=== PATIENT | male | born 1955 | race African-American/Black ===

== ENCOUNTER 2017-05-19 12:17 | Inpatient (IN) ==
[2017-05-19 13:46] LABS: Basophils # 0.1 10*3/uL (0.0-0.2); Eosinophils # 0.1 10*3/uL (0.0-0.87); Eosinophils % 2.2 % (0.00-10.9); Hematocrit 38.7 VOL% (42.0-52.0); Hemoglobin 12.9 GM/DL (14.0-18.0); Immature Granulocytes % 1.2 %; Immature Granulocytes Absolute 0.06 #; Lymphocytes # 1.2 10*3/uL (1.4-4.0); Lymphocytes % 24.8 % (21.2-54.2); Mean Corpuscular HGB Conc 33.3 GM/DL (32-36); Mean Corpuscular Hemoglobin 30 PG (27-34); Mean Corpuscular Volume 90.8 FL (87-102); Mean Platelet Volume 13.2 FL (9.6-12.0); Monocytes # 0.7 10*3/uL (0.11-0.8); Monocytes % 14.8 % (1.7-12.7); Neutrophils # 2.8 10*3/uL (1.4-7.4); Platelet Count 201 T/CUMM (130-400); Red Blood Count 4.26 MC/CUMM (3.8-5.5); Red Cell Distribution Width 15.7 % (9.3-17.3)
[2017-05-19 14:03] LABS: PT Patient Result 10.7 SECS
[2017-05-19 14:17] LABS: Alanine Aminotransferase 31 U/L (16-61); Albumin 3.7 G/DL (3.4-5.0); Alkaline Phosphatase 62 U/L (45-117); Aspartate Amino Transferase 33 U/L (0-37); Bilirubin,Total < 0.39 MG/DL (0.2-1.0); Blood Urea Nitrogen 10 MG/DL (7-18); Calcium 8.5 MG/DL (8.5-10.1); Glucose 123 MG/DL (74-106); Potassium 3.7 MMOL/L (3.5-5.1); Sodium 136 MMOL/L (136-145); Total Protein 7.8 G/DL (6.4-8.3)
[2017-05-19 14:19] LABS: Troponin I Only 0.052 NG/ML (0.00-0.045)
[2017-05-19] MEDS ORDERED: ONDANSETRON 4 MG/2 ML VIAL IV PRN (17:41)
[2017-05-19] MEDS: SODIUM CHLORIDE 0.9% 1,000 ML IV SCH (19:06)
[2017-05-19] MEDS: DOCUSATE SODIUM 100 MG CAPSULE PO SCH (21:20)
[2017-05-19] MEDS: ACETAMINOPHEN 325 MG TABLET PO PRN (21:20)
[2017-05-19] MEDS: ENOXAPARIN 40 MG/0.4 ML SYRINGE SUBCUT SCH (21:24)
[2017-05-20] MEDS ORDERED: ALBUTEROL 2.5 MG/3 ML NEB RESP TX PRN (00:38)
[2017-05-20] MEDS: SODIUM CHLORIDE 0.9% 1,000 ML IV SCH ×2 (03:06→11:42)
[2017-05-20 03:33] LABS: Basophils # 0.1 10*3/uL (0.0-0.2); Eosinophils # 0.1 10*3/uL (0.0-0.87); Eosinophils % 2.1 % (0.00-10.9); Hematocrit 37.5 VOL% (42.0-52.0); Hemoglobin 12.6 GM/DL (14.0-18.0); Immature Granulocytes Absolute 0.05 #; Lymphocytes # 1.3 10*3/uL (1.4-4.0); Lymphocytes % 25.6 % (21.2-54.2); Mean Corpuscular HGB Conc 33.6 GM/DL (32-36); Mean Corpuscular Hemoglobin 30 PG (27-34); Mean Corpuscular Volume 89.3 FL (87-102); Mean Platelet Volume 13.1 FL (9.6-12.0); Monocytes # 0.9 10*3/uL (0.11-0.8); Monocytes % 18.1 % (1.7-12.7); Neutrophils # 2.7 10*3/uL (1.4-7.4); Neutrophils % 52.2 % (38.7-73.9); Platelet Count 199 T/CUMM (130-400); Red Cell Distribution Width 15.9 % (9.3-17.3); White Blood Count 5.2 T/CUMM (4-12)
[2017-05-20 04:02] LABS: Calcium 8.2 MG/DL (8.5-10.1); Magnesium 2.3 MG/DL (1.8-2.4); Osmolality,Calculated 273.7 MOS/KG (273-304); Potassium 3.8 MMOL/L (3.5-5.1); Risk Ratio 6.17; VLDL CHOLESTEROL 35.4 MG/DL
[2017-05-20] MEDS: ACETAMINOPHEN 325 MG TABLET PO PRN ×2 (04:11→19:28)
[2017-05-20] MEDS: PANTOPRAZOLE 40 MG TABLET PO SCH (08:14)
[2017-05-20] MEDS: DOCUSATE SODIUM 100 MG CAPSULE PO SCH ×2 (08:14→22:01)
[2017-05-20 11:14] LABS: Troponin I Only 0.054 NG/ML (0.00-0.045)
[2017-05-20 17:14] LABS: Troponin I Only 0.051 NG/ML (0.00-0.045)
[2017-05-20] MEDS: amLODIPine 5 MG TABLET PO SCH (21:59)
[2017-05-20] MEDS: METOPROLOL TARTRATE 50 MG TABLET PO SCH (22:00)
[2017-05-20] MEDS: ENOXAPARIN 40 MG/0.4 ML SYRINGE SUBCUT SCH (22:01)
[2017-05-20] MEDS: ATORVASTATIN 10 MG TABLET PO SCH (22:04)
[2017-05-21] MEDS ORDERED: diphenhydrAMINE CAP 25 MG CAPSULE PO PRN (01:54)
[2017-05-21] MEDS: traMADol 50 MG TABLET PO PRN ×2 (02:05→14:18)
[2017-05-21] MEDS: MORPHINE 2 MG/1 ML SYRINGE IV SCH ×5 (04:45→21:20)
[2017-05-21] MEDS: NITROGLYCERIN 2% OINT 1 INCH/GM PACK TOP PRN ×2 (04:45→10:54)
[2017-05-21] MEDS ORDERED: MORPHINE 2 MG/1 ML SYRINGE IV ONE (05:00)
[2017-05-21 06:07] LABS: Basophils # 0.1 10*3/uL (0.0-0.2); Basophils % 0.9 % (0.0-0.8); Eosinophils # 0.1 10*3/uL (0.0-0.87); Eosinophils % 1.1 % (0.00-10.9); Hematocrit 39.9 VOL% (42.0-52.0); Hemoglobin 13.7 GM/DL (14.0-18.0); Immature Granulocytes % 0.9 %; Immature Granulocytes Absolute 0.05 #; Lymphocytes # 1.2 10*3/uL (1.4-4.0); Lymphocytes % 22.8 % (21.2-54.2); Mean Corpuscular HGB Conc 34.3 GM/DL (32-36); Mean Corpuscular Hemoglobin 30 PG (27-34); Mean Corpuscular Volume 88.5 FL (87-102); Mean Platelet Volume 13.2 FL (9.6-12.0); Monocytes # 0.9 10*3/uL (0.11-0.8); Monocytes % 16.3 % (1.7-12.7); Neutrophils # 3.1 10*3/uL (1.4-7.4); Platelet Count 194 T/CUMM (130-400); Red Blood Count 4.51 MC/CUMM (3.8-5.5); Red Cell Distribution Width 15.7 % (9.3-17.3); White Blood Count 5.4 T/CUMM (4-12)
[2017-05-21 06:43] LABS: Calcium 8.6 MG/DL (8.5-10.1); Magnesium 2.1 MG/DL (1.8-2.4); Osmolality,Calculated 268.1 MOS/KG (273-304); Potassium 4.6 MMOL/L (3.5-5.1)
[2017-05-21 07:00] LABS: Lymphocytes 29 % (20-55); Segmented Neutrophils 62 % (50-85); Total Cells Counted 100
[2017-05-21 07:01] LABS: Platelet Estimate Normal
[2017-05-21] MEDS: DOCUSATE SODIUM 100 MG CAPSULE PO SCH ×2 (09:09→21:18)
[2017-05-21] MEDS: METOPROLOL TARTRATE 50 MG TABLET PO SCH ×2 (09:10→21:18)
[2017-05-21] MEDS: PANTOPRAZOLE 40 MG TABLET PO SCH (09:10)
[2017-05-21] MEDS: ACYCLOVIR 800 MG TABLET PO SCH ×3 (14:18→21:18)
[2017-05-21] MEDS: ATORVASTATIN 10 MG TABLET PO SCH (21:18)
[2017-05-21] MEDS: ENOXAPARIN 40 MG/0.4 ML SYRINGE SUBCUT SCH (21:21)
[2017-05-21] MEDS: amLODIPine 5 MG TABLET PO SCH (21:24)
[2017-05-22] MEDS: MORPHINE 2 MG/1 ML SYRINGE IV SCH ×6 (01:13→23:57)
[2017-05-22 05:21] LABS: Basophils % 0.7 % (0.0-0.8); Eosinophils % 0.3 % (0.00-10.9); Hematocrit 41.7 VOL% (42.0-52.0); Hemoglobin 13.7 GM/DL (14.0-18.0); Immature Granulocytes Absolute 0.06 #; Lymphocytes # 1.9 10*3/uL (1.4-4.0); Lymphocytes % 32.2 % (21.2-54.2); Mean Corpuscular HGB Conc 32.9 GM/DL (32-36); Mean Corpuscular Hemoglobin 30 PG (27-34); Mean Corpuscular Volume 90.8 FL (87-102); Mean Platelet Volume 13.5 FL (9.6-12.0); Monocytes # 1.2 10*3/uL (0.11-0.8); Monocytes % 20.7 % (1.7-12.7); Neutrophils # 2.6 10*3/uL (1.4-7.4); Neutrophils % 45.1 % (38.7-73.9); Platelet Count 191 T/CUMM (130-400); Red Blood Count 4.59 MC/CUMM (3.8-5.5); White Blood Count 5.8 T/CUMM (4-12)
[2017-05-22] MEDS: ACYCLOVIR 800 MG TABLET PO SCH ×5 (05:55→23:47)
[2017-05-22 06:04] LABS: Calcium 8.9 MG/DL (8.5-10.1); Magnesium 2.1 MG/DL (1.8-2.4); Potassium 4.1 MMOL/L (3.5-5.1)
[2017-05-22 06:16] LABS: Band Neutrophils 7 % (0-10); Lymphocytes 43 % (20-55); Segmented Neutrophils 44 % (50-85); Total Cells Counted 100
[2017-05-22 06:17] LABS: Platelet Estimate Normal
[2017-05-22] MEDS ORDERED: MAGNESIUM SULF RIDER 2 GM in PREMIX 1 EACH IV PRN ×2 (06:25→06:27)
[2017-05-22] MEDS ORDERED: POTASSIUM CHLORIDE RIDER 10 MEQ in PREMIX 1 EACH IV PRN ×2 (06:25→06:27)
[2017-05-22] MEDS ORDERED: POTASSIUM CHLORIDE INJ 20 MEQ in SODIUM CHLORIDE 0.45% 250 ML IV ONE (07:00)
[2017-05-22] MEDS: DOCUSATE SODIUM 100 MG CAPSULE PO SCH ×2 (09:34→22:15)
[2017-05-22] MEDS: PANTOPRAZOLE 40 MG TABLET PO SCH (09:35)
[2017-05-22] MEDS: METOPROLOL TARTRATE 50 MG TABLET PO SCH ×2 (09:35→22:15)
[2017-05-22] MEDS: traMADol 50 MG TABLET PO PRN ×2 (13:11→23:44)
[2017-05-22] MEDS ORDERED: ACETAMINOPHEN 325 MG TABLET PO PRN (14:45)
[2017-05-22] MEDS: SODIUM CHLORIDE 0.45% 1,000 ML IV SCH (15:17)
[2017-05-22 16:20] LABS: Apearance,Urine CLEAR (Clear); Bilirubin,Urine Negative (Negative); Blood, Urine Negative (Negative); Glucose,Urine (UA) Negative (Negative); Ketones,Urine Negative (Negative); Mucus,Urine Occasional /LPF (Occasional); Nitrite,Urine Negative (Negative); Protein,Urine Negative; RBC,Urine <1 /HPF (0-4); Urine Color Yellow (Yellow); Urine Specific Gravity 1.016 (1.001-1.035); WBC,Urine <1 /HPF (0-6)
[2017-05-22] MEDS: amLODIPine 5 MG TABLET PO SCH (22:15)
[2017-05-22] MEDS: ATORVASTATIN 10 MG TABLET PO SCH (22:15)
[2017-05-22] MEDS: ENOXAPARIN 40 MG/0.4 ML SYRINGE SUBCUT SCH (22:18)
[2017-05-23] MEDS: MORPHINE 2 MG/1 ML SYRINGE IV SCH ×4 (05:17→21:52)
[2017-05-23] MEDS: SODIUM CHLORIDE 0.45% 1,000 ML IV SCH (06:30)
[2017-05-23 07:08] LABS: PT Patient Result 10.9 SECS
[2017-05-23 07:37] LABS: Calcium 8.5 MG/DL (8.5-10.1); Osmolality,Calculated 270.2 MOS/KG (273-304); Potassium 4.1 MMOL/L (3.5-5.1)
[2017-05-23] MEDS: ACYCLOVIR 800 MG TABLET PO SCH ×5 (07:37→21:46)
[2017-05-23] MEDS ORDERED: DIAZEPAM 5 MG TABLET PO ONE (08:00)
[2017-05-23] MEDS ORDERED: diphenhydrAMINE CAP 25 MG CAPSULE PO ONE (08:00)
[2017-05-23] MEDS ORDERED: HEPARIN/NACL 0.9% 2 UNITS/ML 2,000 ML IV ONE (08:51)
[2017-05-23] MEDS ORDERED: LIDOCAINE 2%/EPI 20 ML VIAL ONE (08:51)
[2017-05-23] MEDS: METOPROLOL TARTRATE 50 MG TABLET PO SCH (09:05)
[2017-05-23] MEDS: PANTOPRAZOLE 40 MG TABLET PO SCH (09:05)
[2017-05-23] MEDS ORDERED: fentaNYL 100 MCG/2 ML VIAL ONE (10:33)
[2017-05-23] MEDS ORDERED: MIDAZOLAM 2 MG/2 ML VIAL ONE (10:33)
[2017-05-23] MEDS: DOCUSATE SODIUM 100 MG CAPSULE PO SCH ×2 (13:36→21:46)
[2017-05-23] MEDS: ATORVASTATIN 10 MG TABLET PO SCH (21:46)
[2017-05-23] MEDS: METOPROLOL TARTRATE 100 MG TABLET PO SCH (21:46)
[2017-05-23] MEDS: amLODIPine 5 MG TABLET PO SCH (21:46)
[2017-05-23] MEDS: ENOXAPARIN 40 MG/0.4 ML SYRINGE SUBCUT SCH (21:46)
[2017-05-24] MEDS: CIPROFLOXACIN INJ 400 MG in PREMIX 1 EACH IV SCH ×2 (00:32→09:46)
[2017-05-24] MEDS: traMADol 50 MG TABLET PO PRN (00:33)
[2017-05-24] MEDS: MORPHINE 2 MG/1 ML SYRINGE IV SCH ×4 (04:32→14:09)
[2017-05-24] MEDS: ACYCLOVIR 800 MG TABLET PO SCH ×2 (06:10→09:45)
[2017-05-24 06:20] LABS: Basophils % 0.3 % (0.0-0.8); Eosinophils % 0.1 % (0.00-10.9); Hematocrit 38.4 VOL% (42.0-52.0); Hemoglobin 12.5 GM/DL (14.0-18.0); Immature Granulocytes % 0.5 %; Immature Granulocytes Absolute 0.04 #; Lymphocytes # 3.3 10*3/uL (1.4-4.0); Lymphocytes % 37.3 % (21.2-54.2); Mean Corpuscular HGB Conc 32.6 GM/DL (32-36); Mean Corpuscular Hemoglobin 30 PG (27-34); Mean Corpuscular Volume 90.8 FL (87-102); Mean Platelet Volume 12.9 FL (9.6-12.0); Monocytes # 0.9 10*3/uL (0.11-0.8); Monocytes % 9.9 % (1.7-12.7); NRBC # 0.02 10*3/uL; Neutrophils # 4.6 10*3/uL (1.4-7.4); Neutrophils % 51.9 % (38.7-73.9); Platelet Count 188 T/CUMM (130-400); Red Blood Count 4.23 MC/CUMM (3.8-5.5); Red Cell Distribution Width 15.9 % (9.3-17.3); White Blood Count 8.8 T/CUMM (4-12)
[2017-05-24 06:43] LABS: Calcium 8.3 MG/DL (8.5-10.1)
[2017-05-24 06:55] LABS: Band Neutrophils 3 % (0-10); Hypochromasia 1+; Lymphocytes 36 % (20-55); Microcytosis 1+; Myelocytes 1 %; Segmented Neutrophils 50 % (50-85); Total Cells Counted 100
[2017-05-24 06:56] LABS: Platelet Estimate Adequate
[2017-05-24] MEDS: DOCUSATE SODIUM 100 MG CAPSULE PO SCH (09:45)
[2017-05-24] MEDS: METOPROLOL TARTRATE 100 MG TABLET PO SCH (09:45)
[2017-05-24] MEDS: PANTOPRAZOLE 40 MG TABLET PO SCH (09:45)
[2017-05-24 11:57] VITALS: BP 126/63
== END 2017-05-24 13:49 | disposition home or self-care (01) | DRG 287 ==
LOC: N.ED 12:17 → INTOOBSV 14:34 → N.EDINP 14:34 → N.2E 17:20
PROVIDERS: ADMIT Family Medicine; ATTEND Family Medicine
PROC: CLCCHCL (ICD-10-PCS; 2017-05-23 11:15)

== ENCOUNTER 2018-05-01 01:41 | Inpatient (IN) ==
[2018-05-01] MEDS ORDERED: ASPIRIN 325 MG TABLET PO STA (02:10)
[2018-05-01 02:51] LABS: Basophils % 0.4 % (0.0-0.8); Eosinophils # 0.1 10*3/uL (0.0-0.87); Eosinophils % 1.6 % (0.00-10.9); Hematocrit 23.6 VOL% (42.0-52.0); Hemoglobin 6.8 GM/DL (14.0-18.0); Immature Granulocytes % 0.4 %; Immature Granulocytes Absolute 0.03 #; Lymphocytes # 1.4 10*3/uL (1.4-4.0); Lymphocytes % 18.3 % (21.2-54.2); Mean Corpuscular HGB Conc 28.8 GM/DL (32-36); Mean Corpuscular Hemoglobin 24 PG (27-34); Mean Corpuscular Volume 82.5 FL (87-102); Mean Platelet Volume 13.8 FL (9.6-12.0); Monocytes # 0.8 10*3/uL (0.11-0.8); Monocytes % 10.8 % (1.7-12.7); Neutrophils # 5.2 10*3/uL (1.4-7.4); Neutrophils % 68.5 % (38.7-73.9); Platelet Count 145 T/CUMM (130-400); Red Blood Count 2.86 MC/CUMM (3.8-5.5); Red Cell Distribution Width 17.5 % (9.3-17.3); White Blood Count 7.6 T/CUMM (4-12)
[2018-05-01 03:17] LABS: Alanine Aminotransferase 24 U/L (16-61); Albumin 3.7 G/DL (3.4-5.0); Alkaline Phosphatase 55 U/L (45-117); Aspartate Amino Transferase 23 U/L (0-37); Bilirubin,Total < 0.39 MG/DL (0.2-1.0); Blood Urea Nitrogen 15 MG/DL (7-18); Calcium 7.9 MG/DL (8.5-10.1); Glucose 98 MG/DL (74-106); Osmolality,Calculated 277.5 MOS/KG (273-304); Potassium 4.1 MMOL/L (3.5-5.1); Sodium 139 MMOL/L (136-145); Total Protein 7.1 G/DL (6.4-8.3)
[2018-05-01] MEDS ORDERED: FUROSEMIDE 40 MG/4 ML VIAL IV STA (03:21)
[2018-05-01] MEDS ORDERED: ONDANSETRON 4 MG/2 ML VIAL IV PRN (03:36)
[2018-05-01 03:41] LABS: Elliptocytes Few; Hypochromasia 1+; Platelet Estimate Adequate; Target Cells Few
[2018-05-01] MEDS ORDERED: traMADol 50 MG TABLET PO PRN (08:39)
[2018-05-01] MEDS ORDERED: SODIUM CHLORIDE 0.9% 1,000 ML IV PRN ×2 (09:09→11:44)
[2018-05-01] MEDS ORDERED: FUROSEMIDE 20 MG/2 ML VIAL IV ONE (09:18)
[2018-05-01] MEDS: CITALOPRAM 20 MG TABLET PO SCH (09:21)
[2018-05-01] MEDS: FAMOTIDINE 20 MG TABLET PO SCH ×2 (09:21→21:47)
[2018-05-01] MEDS: METOPROLOL TARTRATE 100 MG TABLET PO SCH ×2 (09:21→21:47)
[2018-05-01] MEDS: amLODIPine 10 MG TABLET PO SCH (09:23)
[2018-05-01 10:54] LABS: Troponin I 0.024 NG/ML (0.00-0.045)
[2018-05-01 13:43] LABS: Ferritin 9.2 ng/ml (26-388)
[2018-05-01] MEDS: FUROSEMIDE 20 MG/2 ML VIAL IV SCH (17:18)
[2018-05-01 20:08] LABS: Hematocrit 30.2 VOL% (42.0-52.0); Hemoglobin 9.1 GM/DL (14.0-18.0)
[2018-05-02 03:40] LABS: Basophils % 0.3 % (0.0-0.8); Eosinophils # 0.1 10*3/uL (0.0-0.87); Eosinophils % 0.8 % (0.00-10.9); Hematocrit 30.4 VOL% (42.0-52.0); Hemoglobin 9.1 GM/DL (14.0-18.0); Immature Granulocytes % 0.7 %; Immature Granulocytes Absolute 0.07 #; Lymphocytes # 1.7 10*3/uL (1.4-4.0); Lymphocytes % 18.4 % (21.2-54.2); Mean Corpuscular HGB Conc 29.9 GM/DL (32-36); Mean Corpuscular Hemoglobin 24 PG (27-34); Mean Corpuscular Volume 80.4 FL (87-102); Mean Platelet Volume 13.4 FL (9.6-12.0); Monocytes # 1.1 10*3/uL (0.11-0.8); Monocytes % 11.5 % (1.7-12.7); NRBC # 0.03 10*3/uL; Neutrophils # 6.4 10*3/uL (1.4-7.4); Neutrophils % 68.3 % (38.7-73.9); Platelet Count 150 T/CUMM (130-400); Red Blood Count 3.78 MC/CUMM (3.8-5.5); White Blood Count 9.4 T/CUMM (4-12)
[2018-05-02 04:09] LABS: Calcium 8.1 MG/DL (8.5-10.1); Osmolality,Calculated 277.5 MOS/KG (273-304); Potassium 3.7 MMOL/L (3.5-5.1)
[2018-05-02] MEDS: FUROSEMIDE 20 MG/2 ML VIAL IV SCH ×2 (08:00→14:14)
[2018-05-02] MEDS ORDERED: LIDOCAINE 100 MG/5 ML SYRINGE ONE (10:00)
[2018-05-02] MEDS ORDERED: PROPOFOL 200 MG/20 ML VIAL IV ONE (10:00)
[2018-05-02] MEDS: CITALOPRAM 20 MG TABLET PO SCH (14:12)
[2018-05-02] MEDS: FAMOTIDINE 20 MG TABLET PO SCH ×2 (14:12→20:38)
[2018-05-02] MEDS: amLODIPine 10 MG TABLET PO SCH (14:12)
[2018-05-02] MEDS: METOPROLOL TARTRATE 100 MG TABLET PO SCH ×2 (14:13→20:38)
[2018-05-02] MEDS ORDERED: BISACODYL 5 MG TABLET PO ONE (15:00)
[2018-05-02] MEDS ORDERED: POLYETHYLENE GLYCOL POWDER 255 GM BOTTLE PO ONE (16:00)
[2018-05-03 03:37] LABS: Basophils % 0.5 % (0.0-0.8); Eosinophils # 0.1 10*3/uL (0.0-0.87); Eosinophils % 1.5 % (0.00-10.9); Hematocrit 35.1 VOL% (42.0-52.0); Hemoglobin 10.4 GM/DL (14.0-18.0); Immature Granulocytes % 0.9 %; Immature Granulocytes Absolute 0.08 #; Lymphocytes % 22.7 % (21.2-54.2); Mean Corpuscular HGB Conc 29.6 GM/DL (32-36); Mean Corpuscular Hemoglobin 24 PG (27-34); Mean Corpuscular Volume 81.3 FL (87-102); Mean Platelet Volume 13.5 FL (9.6-12.0); Monocytes # 1.1 10*3/uL (0.11-0.8); Monocytes % 12.3 % (1.7-12.7); Neutrophils # 5.4 10*3/uL (1.4-7.4); Neutrophils % 62.1 % (38.7-73.9); Platelet Count 183 T/CUMM (130-400); Red Blood Count 4.32 MC/CUMM (3.8-5.5); Red Cell Distribution Width 17.2 % (9.3-17.3); White Blood Count 8.8 T/CUMM (4-12)
[2018-05-03 03:56] LABS: Calcium 8.7 MG/DL (8.5-10.1); Osmolality,Calculated 278.4 MOS/KG (273-304); Potassium 3.7 MMOL/L (3.5-5.1)
[2018-05-03] MEDS ORDERED: MAGNESIUM CITRATE 300 ML BOTTLE PO ONE (06:00)
[2018-05-03] MEDS ORDERED: PROPOFOL 200 MG/20 ML VIAL IV ONE (10:00)
[2018-05-03] MEDS ORDERED: LIDOCAINE 100 MG/5 ML SYRINGE ONE (10:00)
[2018-05-03] MEDS: FAMOTIDINE 20 MG TABLET PO SCH ×2 (14:05→21:32)
[2018-05-03] MEDS: CITALOPRAM 20 MG TABLET PO SCH (14:05)
[2018-05-03] MEDS: amLODIPine 10 MG TABLET PO SCH (14:06)
[2018-05-03] MEDS: FUROSEMIDE 20 MG/2 ML VIAL IV SCH ×2 (14:11)
[2018-05-03] MEDS: METOPROLOL TARTRATE 100 MG TABLET PO SCH ×2 (16:42→21:32)
[2018-05-04 05:28] LABS: Basophils % 0.5 % (0.0-0.8); Eosinophils # 0.1 10*3/uL (0.0-0.87); Eosinophils % 1.2 % (0.00-10.9); Hematocrit 35.5 VOL% (42.0-52.0); Hemoglobin 10.5 GM/DL (14.0-18.0); Immature Granulocytes % 0.7 %; Immature Granulocytes Absolute 0.05 #; Lymphocytes # 2.3 10*3/uL (1.4-4.0); Lymphocytes % 30.7 % (21.2-54.2); Mean Corpuscular HGB Conc 29.6 GM/DL (32-36); Mean Corpuscular Hemoglobin 24 PG (27-34); Mean Corpuscular Volume 81.2 FL (87-102); Monocytes # 0.8 10*3/uL (0.11-0.8); NRBC # 0.02 10*3/uL; Neutrophils # 4.1 10*3/uL (1.4-7.4); Neutrophils % 55.9 % (38.7-73.9); Platelet Count 203 T/CUMM (130-400); Red Blood Count 4.37 MC/CUMM (3.8-5.5); Red Cell Distribution Width 17.1 % (9.3-17.3); White Blood Count 7.4 T/CUMM (4-12)
[2018-05-04 05:50] LABS: Calcium 8.6 MG/DL (8.5-10.1); Osmolality,Calculated 281.4 MOS/KG (273-304); Potassium 3.6 MMOL/L (3.5-5.1)
[2018-05-04] MEDS: METOPROLOL TARTRATE 100 MG TABLET PO SCH ×2 (09:05→21:31)
[2018-05-04] MEDS: CITALOPRAM 20 MG TABLET PO SCH (09:05)
[2018-05-04] MEDS: amLODIPine 10 MG TABLET PO SCH (09:05)
[2018-05-04] MEDS: FUROSEMIDE 20 MG/2 ML VIAL IV SCH ×2 (09:05→17:38)
[2018-05-04] MEDS: FAMOTIDINE 20 MG TABLET PO SCH ×2 (09:05→21:31)
[2018-05-04] MEDS: ACETAMINOPHEN 325 MG TABLET PO PRN (21:33)
[2018-05-05 05:16] LABS: Basophils # 0.1 10*3/uL (0.0-0.2); Basophils % 0.5 % (0.0-0.8); Hematocrit 36.1 VOL% (42.0-52.0); Immature Granulocytes % 0.6 %; Immature Granulocytes Absolute 0.07 #; Lymphocytes # 0.7 10*3/uL (1.4-4.0); Lymphocytes % 6.2 % (21.2-54.2); Mean Corpuscular HGB Conc 30.5 GM/DL (32-36); Mean Corpuscular Hemoglobin 24 PG (27-34); Mean Platelet Volume 13.3 FL (9.6-12.0); Monocytes # 0.6 10*3/uL (0.11-0.8); Monocytes % 5.8 % (1.7-12.7); Neutrophils # 9.6 10*3/uL (1.4-7.4); Neutrophils % 86.9 % (38.7-73.9); Platelet Count 186 T/CUMM (130-400); Red Blood Count 4.51 MC/CUMM (3.8-5.5); Red Cell Distribution Width 17.4 % (9.3-17.3); White Blood Count 11.1 T/CUMM (4-12)
[2018-05-05 05:31] LABS: Calcium 8.8 MG/DL (8.5-10.1); Osmolality,Calculated 277.7 MOS/KG (273-304); Potassium 3.7 MMOL/L (3.5-5.1)
[2018-05-05] MEDS: FAMOTIDINE 20 MG TABLET PO SCH ×2 (09:22→20:48)
[2018-05-05] MEDS: CITALOPRAM 20 MG TABLET PO SCH (09:22)
[2018-05-05] MEDS: amLODIPine 10 MG TABLET PO SCH (09:24)
[2018-05-05] MEDS: METOPROLOL TARTRATE 100 MG TABLET PO SCH ×2 (09:24→20:49)
[2018-05-05] MEDS: FUROSEMIDE 20 MG/2 ML VIAL IV SCH ×2 (09:24→15:47)
[2018-05-05] MEDS: ACETAMINOPHEN 325 MG TABLET PO PRN ×2 (11:50→20:48)
[2018-05-05 12:01] LABS: Basophils % 0.3 % (0.0-0.8); Hematocrit 40.6 VOL% (42.0-52.0); Hemoglobin 12.1 GM/DL (14.0-18.0); Immature Granulocytes % 0.8 %; Immature Granulocytes Absolute 0.07 #; Lymphocytes # 0.9 10*3/uL (1.4-4.0); Lymphocytes % 10.9 % (21.2-54.2); Mean Corpuscular HGB Conc 29.8 GM/DL (32-36); Mean Corpuscular Hemoglobin 25 PG (27-34); Mean Corpuscular Volume 82.5 FL (87-102); Mean Platelet Volume 12.9 FL (9.6-12.0); Monocytes # 0.2 10*3/uL (0.11-0.8); Monocytes % 2.8 % (1.7-12.7); Neutrophils # 7.3 10*3/uL (1.4-7.4); Neutrophils % 85.2 % (38.7-73.9); Platelet Count 212 T/CUMM (130-400); Red Blood Count 4.92 MC/CUMM (3.8-5.5); Red Cell Distribution Width 17.8 % (9.3-17.3); White Blood Count 8.6 T/CUMM (4-12)
[2018-05-05 13:59] LABS: Sedimentation Rate-Westergren 32 MM/HR (0-20)
[2018-05-05 14:24] LABS: Apearance,Urine Slightly Hazy (Clear); Bacteria,Urine Occasional /HPF (Few); Bilirubin,Urine Negative (Negative); Blood, Urine Negative (Negative); Glucose,Urine (UA) Negative (Negative); Hyaline Casts,Urine 3 /LPF (0-3); Ketones,Urine Negative (Negative); Mucus,Urine Many /LPF (Occasional); Nitrite,Urine Negative (Negative); Protein,Urine Negative; RBC,Urine <1 /HPF (0-4); Urine Color Yellow (Yellow); Urine Specific Gravity 1.023 (1.001-1.035); WBC,Urine 1 /HPF (0-6)
[2018-05-05] MEDS: LEVOFLOXACIN INJ 500 MG in PREMIX 1 EACH IV SCH (15:47)
[2018-05-06] MEDS: FUROSEMIDE 20 MG/2 ML VIAL IV SCH ×2 (08:30→15:30)
[2018-05-06] MEDS: CITALOPRAM 20 MG TABLET PO SCH (08:31)
[2018-05-06] MEDS: METOPROLOL TARTRATE 100 MG TABLET PO SCH ×2 (08:31→21:00)
[2018-05-06] MEDS: FAMOTIDINE 20 MG TABLET PO SCH ×2 (08:33→21:00)
[2018-05-06] MEDS: amLODIPine 10 MG TABLET PO SCH (08:35)
[2018-05-06] MEDS: ASPIRIN EC 81 MG TABLET PO SCH (08:35)
[2018-05-06] MEDS: metroNIDAZOLE INJ 500 MG in PREMIX 1 EACH IV SCH ×2 (11:06→17:29)
[2018-05-06] MEDS: LEVOFLOXACIN INJ 500 MG in PREMIX 1 EACH IV SCH (15:30)
[2018-05-06] MEDS: ENOXAPARIN 40 MG/0.4 ML SYRINGE SUBCUT SCH (21:01)
[2018-05-07] MEDS: metroNIDAZOLE INJ 500 MG in PREMIX 1 EACH IV SCH ×3 (01:53→18:17)
[2018-05-07 05:27] LABS: Basophils % 0.4 % (0.0-0.8); Eosinophils # 0.1 10*3/uL (0.0-0.87); Eosinophils % 0.8 % (0.00-10.9); Hematocrit 36.5 VOL% (42.0-52.0); Hemoglobin 10.9 GM/DL (14.0-18.0); Immature Granulocytes Absolute 0.09 #; Lymphocytes # 1.3 10*3/uL (1.4-4.0); Lymphocytes % 14.9 % (21.2-54.2); Mean Corpuscular HGB Conc 29.9 GM/DL (32-36); Mean Corpuscular Hemoglobin 24 PG (27-34); Mean Corpuscular Volume 80.9 FL (87-102); Mean Platelet Volume 13.4 FL (9.6-12.0); Monocytes # 1.1 10*3/uL (0.11-0.8); Neutrophils # 6.3 10*3/uL (1.4-7.4); Neutrophils % 70.9 % (38.7-73.9); Platelet Count 169 T/CUMM (130-400); Red Blood Count 4.51 MC/CUMM (3.8-5.5); Red Cell Distribution Width 17.2 % (9.3-17.3); White Blood Count 8.9 T/CUMM (4-12)
[2018-05-07] MEDS: ACETAMINOPHEN 325 MG TABLET PO PRN (06:05)
[2018-05-07 06:07] LABS: Giant Platelets Few; Hypochromasia 1+; Platelet Estimate Adequate
[2018-05-07 06:16] LABS: Calcium 8.7 MG/DL (8.5-10.1); Osmolality,Calculated 277.7 MOS/KG (273-304)
[2018-05-07] MEDS: ASPIRIN EC 81 MG TABLET PO SCH (10:30)
[2018-05-07] MEDS: CITALOPRAM 20 MG TABLET PO SCH (10:30)
[2018-05-07] MEDS: METOPROLOL TARTRATE 100 MG TABLET PO SCH ×2 (10:30→21:31)
[2018-05-07] MEDS: amLODIPine 10 MG TABLET PO SCH (10:31)
[2018-05-07] MEDS: FAMOTIDINE 20 MG TABLET PO SCH ×2 (10:31→21:31)
[2018-05-07] MEDS: FUROSEMIDE 20 MG/2 ML VIAL IV SCH ×2 (10:33→17:32)
[2018-05-07] MEDS: LEVOFLOXACIN INJ 500 MG in PREMIX 1 EACH IV SCH (15:05)
[2018-05-07] MEDS: ENOXAPARIN 40 MG/0.4 ML SYRINGE SUBCUT SCH (21:31)
[2018-05-08] MEDS: metroNIDAZOLE INJ 500 MG in PREMIX 1 EACH IV SCH ×3 (02:25→18:29)
[2018-05-08 05:59] LABS: Basophils # 0.1 10*3/uL (0.0-0.2); Eosinophils # 0.1 10*3/uL (0.0-0.87); Eosinophils % 1.4 % (0.00-10.9); Hematocrit 34.8 VOL% (42.0-52.0); Hemoglobin 10.4 GM/DL (14.0-18.0); Immature Granulocytes % 1.3 %; Immature Granulocytes Absolute 0.08 #; Lymphocytes # 1.9 10*3/uL (1.4-4.0); Lymphocytes % 29.8 % (21.2-54.2); Mean Corpuscular HGB Conc 29.9 GM/DL (32-36); Mean Corpuscular Hemoglobin 24 PG (27-34); Mean Corpuscular Volume 79.3 FL (87-102); Mean Platelet Volume 12.7 FL (9.6-12.0); Monocytes # 0.8 10*3/uL (0.11-0.8); Monocytes % 13.3 % (1.7-12.7); Neutrophils # 3.3 10*3/uL (1.4-7.4); Neutrophils % 53.2 % (38.7-73.9); Platelet Count 182 T/CUMM (130-400); Red Blood Count 4.39 MC/CUMM (3.8-5.5); Red Cell Distribution Width 17.1 % (9.3-17.3); White Blood Count 6.3 T/CUMM (4-12)
[2018-05-08 06:04] LABS: Calcium 8.8 MG/DL (8.5-10.1); Osmolality,Calculated 277.7 MOS/KG (273-304); Potassium 3.6 MMOL/L (3.5-5.1)
[2018-05-08 06:48] LABS: Eosinophils 3 % (0-10); Lymphocytes 21 % (20-55); Metamyelocytes 1 %; Platelet Estimate Adequate; Segmented Neutrophils 67 % (50-85); Total Cells Counted 100
[2018-05-08 06:49] LABS: Hypochromasia 2+; Microcytosis 1+; Polychromasia Few
[2018-05-08] MEDS: METOPROLOL TARTRATE 100 MG TABLET PO SCH ×2 (08:44→22:31)
[2018-05-08] MEDS: CITALOPRAM 20 MG TABLET PO SCH (08:44)
[2018-05-08] MEDS: FAMOTIDINE 20 MG TABLET PO SCH ×2 (08:44→22:30)
[2018-05-08] MEDS: ASPIRIN EC 81 MG TABLET PO SCH (08:45)
[2018-05-08] MEDS: FUROSEMIDE 20 MG/2 ML VIAL IV SCH ×2 (08:46→16:13)
[2018-05-08] MEDS: amLODIPine 10 MG TABLET PO SCH (08:51)
[2018-05-08] MEDS: LEVOFLOXACIN INJ 500 MG in PREMIX 1 EACH IV SCH (16:13)
[2018-05-08] MEDS: ENOXAPARIN 40 MG/0.4 ML SYRINGE SUBCUT SCH (22:31)
[2018-05-08] MEDS: ACETAMINOPHEN 325 MG TABLET PO PRN (22:35)
[2018-05-09] MEDS: metroNIDAZOLE INJ 500 MG in PREMIX 1 EACH IV SCH ×3 (02:05→18:05)
[2018-05-09] MEDS: ACETAMINOPHEN 325 MG TABLET PO PRN (03:18)
[2018-05-09] MEDS: FAMOTIDINE 20 MG TABLET PO SCH ×2 (08:45→21:36)
[2018-05-09] MEDS: METOPROLOL TARTRATE 100 MG TABLET PO SCH ×2 (08:45→22:19)
[2018-05-09] MEDS: ASPIRIN EC 81 MG TABLET PO SCH (08:45)
[2018-05-09] MEDS: CITALOPRAM 20 MG TABLET PO SCH (08:45)
[2018-05-09] MEDS: amLODIPine 10 MG TABLET PO SCH (08:46)
[2018-05-09] MEDS: FUROSEMIDE 20 MG/2 ML VIAL IV SCH ×2 (08:47→16:28)
[2018-05-09] MEDS: LEVOFLOXACIN INJ 500 MG in PREMIX 1 EACH IV SCH (16:27)
[2018-05-09] MEDS: ENOXAPARIN 40 MG/0.4 ML SYRINGE SUBCUT SCH ×2 (21:36→21:37)
[2018-05-10] MEDS: metroNIDAZOLE INJ 500 MG in PREMIX 1 EACH IV SCH ×2 (01:55→09:12)
[2018-05-10] MEDS: FAMOTIDINE 20 MG TABLET PO SCH (09:11)
[2018-05-10] MEDS: ASPIRIN EC 81 MG TABLET PO SCH (09:11)
[2018-05-10] MEDS: amLODIPine 10 MG TABLET PO SCH (09:11)
[2018-05-10] MEDS: METOPROLOL TARTRATE 100 MG TABLET PO SCH (09:11)
[2018-05-10] MEDS: CITALOPRAM 20 MG TABLET PO SCH (09:11)
[2018-05-10] MEDS: FUROSEMIDE 20 MG/2 ML VIAL IV SCH (09:12)
[2018-05-10 12:19] VITALS: BP 98/53
== END 2018-05-10 16:01 | disposition home health service (06) | DRG 812 ==
LOC: N.ED 01:41 → N.EDINP 03:36 → N.TELES 03:56
PROVIDERS: ADMIT Family Medicine; ATTEND Family Medicine

== ENCOUNTER 2018-09-10 13:39 | Observation (INO) ==
[2018-09-10] MEDS ORDERED: ONDANSETRON 4 MG/2 ML VIAL IV PRN (15:03)
[2018-09-10] MEDS ORDERED: CETIRIZINE 10 MG TABLET PO PRN (15:06)
[2018-09-10] MEDS ORDERED: SODIUM CHLORIDE 0.9% 1,000 ML IV PRN (15:51)
[2018-09-10] MEDS ORDERED: FUROSEMIDE 20 MG/2 ML VIAL IV ONE (17:15)
[2018-09-10] MEDS: FAMOTIDINE 20 MG TABLET PO SCH (20:26)
[2018-09-10] MEDS: DOCUSATE SODIUM 100 MG CAPSULE PO SCH (20:26)
[2018-09-10] MEDS: METOPROLOL TARTRATE 100 MG TABLET PO SCH (20:26)
[2018-09-11] MEDS: ACETAMINOPHEN 325 MG TABLET PO PRN ×2 (03:45→08:44)
[2018-09-11 05:37] LABS: Albumin 3.6 G/DL (3.4-5.0); Bilirubin,Total 1.1 MG/DL (0.2-1.0); Calcium 8.4 MG/DL (8.5-10.1); Osmolality,Calculated 277.4 MOS/KG (273-304); Potassium 3.8 MMOL/L (3.5-5.1); Total Protein 7.4 G/DL (6.4-8.3)
[2018-09-11 06:02] LABS: Basophils # 0.1 10*3/uL (0.0-0.2); Basophils % 0.7 % (0.0-0.8); Eosinophils # 0.1 10*3/uL (0.0-0.87); Eosinophils % 2.1 % (0.00-10.9); Hematocrit 32.5 VOL% (42.0-52.0); Hemoglobin 9.8 GM/DL (14.0-18.0); Immature Granulocytes % 0.9 %; Immature Granulocytes Absolute 0.06 #; Lymphocytes # 2.5 10*3/uL (1.4-4.0); Lymphocytes % 36.8 % (21.2-54.2); Mean Corpuscular HGB Conc 30.2 GM/DL (32-36); Mean Corpuscular Hemoglobin 24 PG (27-34); Mean Corpuscular Volume 79.1 FL (87-102); Mean Platelet Volume 13.3 FL (9.6-12.0); Monocytes # 1.2 10*3/uL (0.11-0.8); Monocytes % 17.5 % (1.7-12.7); Neutrophils # 2.8 10*3/uL (1.4-7.4); Platelet Count 167 T/CUMM (130-400); Red Blood Count 4.11 MC/CUMM (3.8-5.5); Red Cell Distribution Width 17.3 % (9.3-17.3); White Blood Count 6.8 T/CUMM (4-12)
[2018-09-11 07:50] LABS: Eosinophils 5 % (0-10); Hypochromasia 1+; Lymphocytes 24 % (20-55); Microcytosis 1+; Ovalocytes Slight; Platelet Estimate Adequate; Segmented Neutrophils 52 % (50-85); Total Cells Counted 100
[2018-09-11 08:04] VITALS: BP 121/52
[2018-09-11] MEDS: DOCUSATE SODIUM 100 MG CAPSULE PO SCH (08:43)
[2018-09-11] MEDS: METOPROLOL TARTRATE 100 MG TABLET PO SCH (08:43)
[2018-09-11] MEDS: FAMOTIDINE 20 MG TABLET PO SCH (08:44)
[2018-09-11] MEDS ORDERED: AZITHROMYCIN 250 MG TABLET PO SCH (09:00)
[2018-09-11] MEDS ORDERED: CITALOPRAM 20 MG TABLET PO SCH (09:00)
[2018-09-11] MEDS ORDERED: ASPIRIN EC 81 MG TABLET PO SCH (09:00)
[2018-09-11] MEDS ORDERED: PANTOPRAZOLE 40 MG TABLET PO SCH (09:00)
== END 2018-09-11 11:40 | disposition home or self-care (01) ==
LOC: N.4E
PROVIDERS: ADMIT Family Medicine; ATTEND Family Medicine

== ENCOUNTER 2020-01-20 12:30 | Observation (INO) ==
[2020-01-20 14:38] LABS: Barbiturates Screen,Urine Negative (Negative); Benzodiazepines Screen,Urine Negative (Negative); Cannabinoid Screen,Urine Negative (Negative); Opiate Screen,Urine Positive (Negative); Phencyclidine Screen,Urine Negative (Negative)
[2020-01-20 14:40] LABS: Apearance,Urine Slightly Hazy (Clear); Bilirubin,Urine Negative (Negative); Blood, Urine Negative (Negative); Glucose,Urine (UA) Negative (Negative); Hyaline Casts,Urine 6 /LPF (0-3); Ketones,Urine Negative (Negative); Mucus,Urine Many /LPF (Occasional); Nitrite,Urine Negative (Negative); Protein,Urine Negative; Urine Color Amber (Yellow); Urine Specific Gravity 1.029 (1.001-1.035); Urine Urobilinogen < 2.0 EU/DL (0.2-1.0)
[2020-01-20 16:16] LABS: Basophils % 0.7 % (0.0-0.8); Eosinophils # 0.1 10*3/uL (0.0-0.87); Eosinophils % 2.4 % (0.00-10.9); Hematocrit 39.1 VOL% (42.0-52.0); Hemoglobin 13.2 GM/DL (14.0-18.0); Immature Granulocytes % 0.7 %; Immature Granulocytes Absolute 0.04 #; Lymphocytes % 34.4 % (21.2-54.2); Mean Corpuscular HGB Conc 33.8 GM/DL (32-36); Mean Corpuscular Volume 100.5 FL (87-102); Mean Platelet Volume 14.3 FL (9.6-12.0); Monocytes % 16.5 % (1.7-12.7); Neutrophils % 45.3 % (38.7-73.9); Platelet Count 146 T/CUMM (130-400); Red Blood Count 3.89 MC/CUMM (3.8-5.5); Red Cell Distribution Width 16.1 % (9.3-17.3); White Blood Count 5.9 T/CUMM (4-12)
[2020-01-20 16:31] LABS: Alanine Aminotransferase 203 U/L (16-61); Albumin 3.4 G/DL (3.4-5.0); Alkaline Phosphatase 102 U/L (45-117); Aspartate Amino Transferase 173 U/L (0-37); Bilirubin,Total < 0.39 MG/DL (0.2-1.0); Blood Urea Nitrogen 12 MG/DL (7-18); Calcium 9.5 MG/DL (8.5-10.1); Estimated Glom Filtration Rate 128 ML/MIN; Glucose 126 MG/DL (74-106); Osmolality,Calculated 282.3 MOS/KG (273-304); Total Protein 7.7 G/DL (6.4-8.3)
[2020-01-20 16:34] LABS: Troponin I 0.055 NG/ML (0.00-0.045)
[2020-01-20] MEDS ORDERED: ONDANSETRON 4 MG/2 ML VIAL IV PRN (18:16)
[2020-01-20] MEDS ORDERED: ACETAMINOPHEN 325 MG TABLET PO PRN (18:16)
[2020-01-20] MEDS ORDERED: FLUTICASONE 50 MCG NASAL SPRAY 16 GM BOTTLE BOTH NARES PRN (20:13)
[2020-01-20] MEDS ORDERED: IPRATROPIUM 0.03% NASAL SPRAY 30 ML BOTTLE BOTH NARES PRN (20:13)
[2020-01-20] MEDS ORDERED: NITROGLYCERIN SL 0.4 MG TABLET SL PRN (20:19)
[2020-01-20] MEDS ORDERED: hydrALAZINE 20 MG/1 ML VIAL IV PRN (20:20)
[2020-01-20] MEDS ORDERED: ATORVASTATIN 10 MG TABLET PO SCH (21:00)
[2020-01-20] MEDS: carvediloL 6.25 MG TABLET PO SCH (21:07)
[2020-01-20] MEDS: DOCUSATE SODIUM 100 MG CAPSULE PO SCH (21:08)
[2020-01-21] MEDS ORDERED: PANTOPRAZOLE 40 MG TABLET PO SCH (09:00)
[2020-01-21] MEDS ORDERED: CITALOPRAM 20 MG TABLET PO SCH (09:00)
[2020-01-21] MEDS ORDERED: amLODIPine 10 MG TABLET PO SCH (09:00)
[2020-01-21] MEDS ORDERED: ASPIRIN EC 81 MG TABLET PO SCH (09:00)
[2020-01-21] MEDS: carvediloL 6.25 MG TABLET PO SCH (09:38)
[2020-01-21] MEDS: DOCUSATE SODIUM 100 MG CAPSULE PO SCH (09:38)
[2020-01-21 12:28] VITALS: BP 141/67
== END 2020-01-21 15:00 | disposition home or self-care (01) ==
LOC: N.ED 12:30 → N.EDINP 12:30 → N.TELEN 18:00
PROVIDERS: ADMIT Family Medicine; ATTEND Family Medicine

== ENCOUNTER 2020-09-06 10:28 | Inpatient (IN) ==
[2020-09-06] MEDS ORDERED: ASPIRIN 325 MG TABLET PO STA (11:16)
[2020-09-06] MEDS: NITROGLYCERIN SL 0.4 MG TABLET SL PRN (11:41)
[2020-09-06 11:48] LABS: Basophils % 0.6 % (0.0-0.8); Eosinophils # 0.1 10*3/uL (0.0-0.87); Eosinophils % 1.2 % (0.00-10.9); Hematocrit 36.6 VOL% (42.0-52.0); Hemoglobin 12.6 GM/DL (14.0-18.0); Immature Granulocytes Absolute 0.05 #; Lymphocytes # 1.3 10*3/uL (1.4-4.0); Lymphocytes % 26.1 % (21.2-54.2); Mean Corpuscular HGB Conc 34.4 GM/DL (32-36); Mean Corpuscular Volume 101.4 FL (87-102); Mean Platelet Volume 13.5 FL (9.6-12.0); Neutrophils % 55.1 % (38.7-73.9); Platelet Count 123 T/CUMM (130-400); Red Blood Count 3.61 MC/CUMM (3.8-5.5); Red Cell Distribution Width 15.6 % (9.3-17.3); White Blood Count 5.1 T/CUMM (4-12)
[2020-09-06 12:05] LABS: Calcium 9.4 MG/DL (8.5-10.1)
[2020-09-06 12:09] LABS: Band Neutrophils 5 % (0-10); Eosinophils 3 % (0-10); Lymphocytes 32 % (20-55); Nucleated Red Blood Cells 1 (0-5); Platelet Estimate Adequate; Segmented Neutrophils 46 % (50-85); Total Cells Counted 100
[2020-09-06 12:10] LABS: Anisocytosis Slight; Macrocytosis 1+
[2020-09-06] MEDS ORDERED: ONDANSETRON 4 MG/2 ML VIAL IV PRN (12:22)
[2020-09-06] MEDS ORDERED: MAGNESIUM SULF RIDER 2 GM in PREMIX 1 EACH IV PRN (12:22)
[2020-09-06] MEDS ORDERED: MAGNESIUM SULF RIDER 4 GM in PREMIX 1 EACH IV PRN (12:22)
[2020-09-06] MEDS ORDERED: FLUTICASONE 50 MCG NASAL SPRAY 16 GM BOTTLE BOTH NARES PRN (12:26)
[2020-09-06] MEDS ORDERED: IPRATROPIUM 0.03% NASAL SPRAY 30 ML BOTTLE BOTH NARES PRN (12:26)
[2020-09-06] MEDS ORDERED: ENOXAPARIN 80 MG/0.8 ML SYRINGE SUBCUT SCH (12:30)
[2020-09-06] MEDS ORDERED: carvediloL 6.25 MG TABLET PO ONE (14:54)
[2020-09-06] MEDS: DEXTROSE 5% NACL 0.45% 1,000 ML IV SCH ×3 (15:09→22:52)
[2020-09-06] MEDS: ALUM/MAG/SIMETH/LIDO VISC 1:1 30 ML BOTTLE PO PRN (15:11)
[2020-09-06] MEDS: GABAPENTIN 100 MG CAPSULE PO SCH ×2 (16:28→21:46)
[2020-09-06] MEDS: LIDOCAINE 5% PATCH TRANSDERM SCH (16:29)
[2020-09-06] MEDS ORDERED: ATORVASTATIN 10 MG TABLET PO SCH (21:00)
[2020-09-06] MEDS: carvediloL 6.25 MG TABLET PO SCH (21:46)
[2020-09-07] MEDS: DEXTROSE 5% NACL 0.45% 1,000 ML IV SCH ×5 (04:36→23:56)
[2020-09-07 05:26] LABS: Basophils % 0.6 % (0.0-0.8); Eosinophils # 0.1 10*3/uL (0.0-0.87); Eosinophils % 1.9 % (0.00-10.9); Hematocrit 37.5 VOL% (42.0-52.0); Hemoglobin 12.3 GM/DL (14.0-18.0); Immature Granulocytes % 0.4 %; Immature Granulocytes Absolute 0.02 #; Lymphocytes # 2.1 10*3/uL (1.4-4.0); Lymphocytes % 40.2 % (21.2-54.2); Mean Corpuscular HGB Conc 32.8 GM/DL (32-36); Mean Corpuscular Volume 104.5 FL (87-102); Mean Platelet Volume 13.9 FL (9.6-12.0); Monocytes % 13.1 % (1.7-12.7); Neutrophils % 43.8 % (38.7-73.9); Platelet Count 135 T/CUMM (130-400); Red Blood Count 3.59 MC/CUMM (3.8-5.5); Red Cell Distribution Width 15.9 % (9.3-17.3); White Blood Count 5.3 T/CUMM (4-12)
[2020-09-07 05:39] LABS: Calcium 8.9 MG/DL (8.5-10.1)
[2020-09-07 05:40] LABS: Osmolality,Calculated 279.4 MOS/KG (273-304); Potassium 4.2 MMOL/L (3.5-5.1)
[2020-09-07 05:42] LABS: Risk Ratio 4.87
[2020-09-07 05:45] LABS: Platelet Estimate Adequate
[2020-09-07] MEDS: carvediloL 6.25 MG TABLET PO SCH ×2 (10:10→20:57)
[2020-09-07] MEDS: DULoxetine 30 MG CAPSULE PO SCH (10:10)
[2020-09-07] MEDS: ASPIRIN EC 81 MG TABLET PO SCH (10:10)
[2020-09-07] MEDS: LIDOCAINE 5% PATCH TRANSDERM SCH (10:11)
[2020-09-07] MEDS: GABAPENTIN 100 MG CAPSULE PO SCH ×3 (10:11→20:57)
[2020-09-07] MEDS: amLODIPine 10 MG TABLET PO SCH (10:11)
[2020-09-07] MEDS: PANTOPRAZOLE 40 MG TABLET PO SCH (10:11)
[2020-09-07] MEDS: ATORVASTATIN 80 MG TABLET PO SCH (20:56)
[2020-09-07] MEDS: NITROGLYCERIN SL 0.4 MG TABLET SL PRN (23:56)
[2020-09-08] MEDS: ALUMINUM/MAGNES/SIMETH MAX STR 30 ML UDCUP PO PRN ×2 (02:45→12:41)
[2020-09-08] MEDS ORDERED: diphenhydrAMINE CAP 50 MG CAPSULE PO ONE ×2 (07:37→13:22)
[2020-09-08] MEDS ORDERED: DIAZEPAM 5 MG TABLET PO ONE ×2 (07:37→13:22)
[2020-09-08] MEDS: DULoxetine 30 MG CAPSULE PO SCH (08:30)
[2020-09-08] MEDS: LIDOCAINE 5% PATCH TRANSDERM SCH (08:30)
[2020-09-08] MEDS: amLODIPine 10 MG TABLET PO SCH (08:31)
[2020-09-08] MEDS: PANTOPRAZOLE 40 MG TABLET PO SCH (08:31)
[2020-09-08] MEDS: ASPIRIN EC 81 MG TABLET PO SCH (08:31)
[2020-09-08] MEDS: GABAPENTIN 100 MG CAPSULE PO SCH ×3 (08:31→20:57)
[2020-09-08] MEDS: carvediloL 6.25 MG TABLET PO SCH (08:31)
[2020-09-08] MEDS: DEXTROSE 5% NACL 0.45% 1,000 ML IV SCH (08:33)
[2020-09-08 11:31] LABS: Basophils % 0.6 % (0.0-0.8); Eosinophils # 0.1 10*3/uL (0.0-0.87); Eosinophils % 1.9 % (0.00-10.9); Hematocrit 37.2 VOL% (42.0-52.0); Hemoglobin 12.4 GM/DL (14.0-18.0); Immature Granulocytes % 0.8 %; Immature Granulocytes Absolute 0.04 #; Lymphocytes # 1.9 10*3/uL (1.4-4.0); Lymphocytes % 37.2 % (21.2-54.2); Mean Corpuscular HGB Conc 33.3 GM/DL (32-36); Mean Corpuscular Volume 103.9 FL (87-102); Monocytes % 11.5 % (1.7-12.7); Platelet Count 139 T/CUMM (130-400); Red Blood Count 3.58 MC/CUMM (3.8-5.5); Red Cell Distribution Width 15.9 % (9.3-17.3); White Blood Count 5.1 T/CUMM (4-12)
[2020-09-08 11:48] LABS: Calcium 8.2 MG/DL (8.5-10.1); Osmolality,Calculated 276.7 MOS/KG (273-304)
[2020-09-08] MEDS ORDERED: DEXTROSE 5% NACL 0.45% 1,000 ML IV SCH (12:00)
[2020-09-08 12:17] LABS: Anisocytosis 1+; Band Neutrophils 2 % (0-10); Eosinophils 2 % (0-10); Lymphocytes 45 % (20-55); Macrocytosis 1+; Platelet Estimate Adequate; Segmented Neutrophils 42 % (50-85); Total Cells Counted 100
[2020-09-08 12:18] LABS: Smudge Cells Few
[2020-09-08] MEDS ORDERED: LIDOCAINE 1% 20 ML VIAL ONE (13:54)
[2020-09-08] MEDS ORDERED: HEPARIN/NACL 0.9% 2 UNITS/ML 1,000 ML IV ONE (13:54)
[2020-09-08] MEDS ORDERED: MIDAZOLAM 2 MG/2 ML VIAL ONE ×2 (14:09→14:21)
[2020-09-08] MEDS ORDERED: fentaNYL 100 MCG/2 ML VIAL ONE (14:09)
[2020-09-08] MEDS ORDERED: diphenhydrAMINE 50 MG/1 ML VIAL ONE (14:21)
[2020-09-08] MEDS ORDERED: HEPARIN 5,000 UNIT/1 ML VIAL ONE (14:24)
[2020-09-08] MEDS ORDERED: HEPARIN/NACL 0.9% 2 UNITS/ML 1,000 UNIT/500 ML BAG IV ONE (15:16)
[2020-09-08] MEDS ORDERED: TICAGRELOR 90 MG TABLET ONE (15:23)
[2020-09-08] MEDS ORDERED: SODIUM CHLORIDE 0.9% 1,000 ML IV SCH (16:00)
[2020-09-08] MEDS: ATORVASTATIN 80 MG TABLET PO SCH (20:57)
[2020-09-08] MEDS: carvediloL 12.5 MG TABLET PO SCH (20:57)
[2020-09-08] MEDS: TICAGRELOR 90 MG TABLET PO SCH (20:57)
[2020-09-09 05:30] LABS: Basophils % 0.3 % (0.0-0.8); Eosinophils # 0.1 10*3/uL (0.0-0.87); Hematocrit 33.8 VOL% (42.0-52.0); Hemoglobin 11.5 GM/DL (14.0-18.0); Immature Granulocytes % 0.5 %; Immature Granulocytes Absolute 0.03 #; Lymphocytes # 1.7 10*3/uL (1.4-4.0); Lymphocytes % 28.4 % (21.2-54.2); Mean Corpuscular Volume 102.7 FL (87-102); Mean Platelet Volume 13.6 FL (9.6-12.0); Monocytes % 10.6 % (1.7-12.7); Neutrophils % 58.2 % (38.7-73.9); Platelet Count 119 T/CUMM (130-400); Red Blood Count 3.29 MC/CUMM (3.8-5.5); Red Cell Distribution Width 15.7 % (9.3-17.3); White Blood Count 6.1 T/CUMM (4-12)
[2020-09-09 06:07] LABS: Calcium 8.3 MG/DL (8.5-10.1); Osmolality,Calculated 279.4 MOS/KG (273-304); Potassium 3.7 MMOL/L (3.5-5.1)
[2020-09-09] MEDS: LIDOCAINE 5% PATCH TRANSDERM SCH (08:34)
[2020-09-09] MEDS: GABAPENTIN 100 MG CAPSULE PO SCH ×3 (08:35→20:56)
[2020-09-09] MEDS: PANTOPRAZOLE 40 MG TABLET PO SCH (08:35)
[2020-09-09] MEDS: carvediloL 12.5 MG TABLET PO SCH ×2 (08:35→20:57)
[2020-09-09] MEDS: ASPIRIN EC 81 MG TABLET PO SCH (08:35)
[2020-09-09] MEDS: DULoxetine 30 MG CAPSULE PO SCH (08:35)
[2020-09-09] MEDS: amLODIPine 10 MG TABLET PO SCH (08:35)
[2020-09-09] MEDS: TICAGRELOR 90 MG TABLET PO SCH ×2 (08:35→20:56)
[2020-09-09] MEDS: LOSARTAN 50 MG TABLET PO SCH (08:36)
[2020-09-09] MEDS: ATORVASTATIN 80 MG TABLET PO SCH (20:56)
[2020-09-09] MEDS: ALUM/MAG/SIMETH/LIDO VISC 1:1 30 ML BOTTLE PO PRN (20:56)
[2020-09-10] MEDS: LIDOCAINE 5% PATCH TRANSDERM SCH (08:33)
[2020-09-10] MEDS: amLODIPine 10 MG TABLET PO SCH (08:33)
[2020-09-10] MEDS: GABAPENTIN 100 MG CAPSULE PO SCH ×3 (08:34→21:36)
[2020-09-10] MEDS: LOSARTAN 50 MG TABLET PO SCH (08:34)
[2020-09-10] MEDS: PANTOPRAZOLE 40 MG TABLET PO SCH ×2 (08:34→21:36)
[2020-09-10] MEDS: ASPIRIN EC 81 MG TABLET PO SCH (08:34)
[2020-09-10] MEDS: TICAGRELOR 90 MG TABLET PO SCH ×2 (08:34→21:36)
[2020-09-10] MEDS: carvediloL 12.5 MG TABLET PO SCH ×2 (08:34→21:36)
[2020-09-10] MEDS: DULoxetine 30 MG CAPSULE PO SCH (08:34)
[2020-09-10] MEDS: ALUM/MAG/SIMETH/LIDO VISC 1:1 30 ML BOTTLE PO PRN ×2 (10:27→21:36)
[2020-09-10] MEDS: ATORVASTATIN 80 MG TABLET PO SCH (21:36)
[2020-09-11 06:05] LABS: Basophils % 0.5 % (0.0-0.8); Eosinophils # 0.1 10*3/uL (0.0-0.87); Eosinophils % 1.8 % (0.00-10.9); Hematocrit 35.2 VOL% (42.0-52.0); Hemoglobin 12.1 GM/DL (14.0-18.0); Immature Granulocytes % 0.6 %; Immature Granulocytes Absolute 0.04 #; Lymphocytes # 1.4 10*3/uL (1.4-4.0); Lymphocytes % 22.9 % (21.2-54.2); Mean Corpuscular HGB Conc 34.4 GM/DL (32-36); Mean Corpuscular Volume 103.2 FL (87-102); Mean Platelet Volume 14.1 FL (9.6-12.0); Monocytes % 13.9 % (1.7-12.7); Neutrophils % 60.3 % (38.7-73.9); Platelet Count 120 T/CUMM (130-400); Red Blood Count 3.41 MC/CUMM (3.8-5.5); Red Cell Distribution Width 15.7 % (9.3-17.3); White Blood Count 6.2 T/CUMM (4-12)
[2020-09-11 06:38] LABS: Albumin 2.9 G/DL (3.4-5.0); Bilirubin,Total 0.5 MG/DL (0.2-1.0); Calcium 8.4 MG/DL (8.5-10.1); Osmolality,Calculated 271.2 MOS/KG (273-304); Total Protein 7.2 G/DL (6.4-8.2)
[2020-09-11] MEDS: ALUMINUM/MAGNES/SIMETH MAX STR 30 ML UDCUP PO PRN (09:20)
[2020-09-11] MEDS: LIDOCAINE 5% PATCH TRANSDERM SCH (09:21)
[2020-09-11] MEDS: TICAGRELOR 90 MG TABLET PO SCH (09:22)
[2020-09-11] MEDS: PANTOPRAZOLE 40 MG TABLET PO SCH (09:22)
[2020-09-11] MEDS: LOSARTAN 50 MG TABLET PO SCH (09:22)
[2020-09-11] MEDS: GABAPENTIN 100 MG CAPSULE PO SCH ×2 (09:22→15:07)
[2020-09-11] MEDS: ASPIRIN EC 81 MG TABLET PO SCH (09:22)
[2020-09-11] MEDS: carvediloL 12.5 MG TABLET PO SCH (09:22)
[2020-09-11] MEDS: DULoxetine 30 MG CAPSULE PO SCH (09:22)
[2020-09-11] MEDS: amLODIPine 10 MG TABLET PO SCH (09:22)
[2020-09-11 13:17] VITALS: BP 140/66
== END 2020-09-11 17:41 | disposition home or self-care (01) | DRG 247 ==
LOC: EDBD → EDUNIT# → N.ED 10:28 → INTOOBSV 12:22 → N.EDINP 12:22 → N.TELEN 13:38
PROVIDERS: ADMIT Family Medicine; ATTEND Family Medicine
PROC: CLCCHCL (ICD-10-PCS; 2020-09-08 14:45)

== ENCOUNTER 2020-10-13 06:41 | Inpatient (IN) ==
[~2020-10-13 06:41] MED LIST: LACTATED RINGERS 1,000 ML IV SCH; VANCOMYCIN INJ 500 MG in SODIUM CHLORIDE 0.9% 100 ML IV ONE
[2020-10-13] MEDS ORDERED: DIAZEPAM 5 MG TABLET PO ONE (07:00)
[2020-10-13] MEDS ORDERED: FAMOTIDINE 20 MG TABLET PO ONE (07:00)
[2020-10-13] MEDS ORDERED: LIDOCAINE 2% 5 ML VIAL ONE (07:24)
[2020-10-13] MEDS ORDERED: DEXAMETHASONE 4 MG/1 ML VIAL ONE ×3 (07:24→09:23)
[2020-10-13] MEDS ORDERED: ROCURONIUM 50 MG/5 ML VIAL IV ONE ×2 (07:24→10:00)
[2020-10-13] MEDS ORDERED: propofoL 200 MG/20 ML VIAL IV ONE (07:24)
[2020-10-13] MEDS ORDERED: ONDANSETRON 4 MG/2 ML VIAL ONE (07:24)
[2020-10-13] MEDS ORDERED: ETOMIDATE 40 MG/20 ML VIAL IV ONE (07:24)
[2020-10-13] MEDS ORDERED: SEVOFLURANE 1 UNIT/15 MINUTE INH ONE ×8 (07:24→10:46)
[2020-10-13] MEDS ORDERED: fentaNYL 100 MCG/2 ML VIAL ONE ×2 (07:24→08:06)
[2020-10-13] MEDS ORDERED: DEXMEDETOMIDINE 200 MCG/2 ML VIAL ONE (07:28)
[2020-10-13] MEDS ORDERED: LIDOCAINE 1% 5 ML VIAL ONE (07:31)
[2020-10-13] MEDS ORDERED: HEPARIN 5,000 UNIT/1 ML VIAL ONE (07:31)
[2020-10-13] MEDS ORDERED: ROPIVACAINE 0.5% 30 ML VIAL ONE (07:39)
[2020-10-13] MEDS ORDERED: MIDAZOLAM 2 MG/2 ML VIAL ONE (08:06)
[2020-10-13] MEDS ORDERED: LIDOCAINE 1% 20 ML VIAL ONE (08:43)
[2020-10-13] MEDS ORDERED: PHENYLEPHRINE 10 MG/1 ML VIAL IV ONE (08:56)
[2020-10-13] MEDS ORDERED: HEPARIN 10,000 UNIT/10 ML VIAL ONE (09:12)
[2020-10-13] MEDS ORDERED: ePHEDrine 50 MG/ML VIAL ONE (09:12)
[2020-10-13] MEDS ORDERED: LACTATED RINGERS 1,000 ML IV ONE (09:23)
[2020-10-13] MEDS ORDERED: SODIUM CHLORIDE 0.9% 100 ML IV ONE (09:23)
[2020-10-13] MEDS ORDERED: ACETAMINOPHEN INJ 1,000 MG/100 ML VIAL IV ONE (09:33)
[2020-10-13] MEDS ORDERED: PROTAMINE SULFATE 50 MG/5 ML VIAL IV ONE (10:15)
[2020-10-13] MEDS ORDERED: SODIUM CHLORIDE 0.9% 1,000 ML IV ONE (10:23)
[2020-10-13] MEDS ORDERED: TISSUE ADHESIVE 1 EACH APPLICATOR TOP ONE (10:47)
[2020-10-13] MEDS ORDERED: GLYCOPYRROLATE 0.4 MG/2 ML VIAL ONE (10:52)
[2020-10-13] MEDS ORDERED: NEOSTIGMINE 10 MG/10 ML VIAL ONE ×3 (10:52→10:53)
[2020-10-13] MEDS ORDERED: HYDROmorphone 2 MG/1 ML VIAL IV PRN ×2 (11:05→11:57)
[2020-10-13] MEDS ORDERED: GLUCAGON 1 MG VIAL IM PRN (11:05)
[2020-10-13] MEDS ORDERED: PROMETHAZINE 25 MG/1 ML VIAL IM PRN (11:05)
[2020-10-13] MEDS ORDERED: NALOXONE 0.4 MG/ML VIAL IV PRN (11:05)
[2020-10-13] MEDS ORDERED: ONDANSETRON 4 MG/2 ML VIAL IV PRN ×2 (11:05→11:57)
[2020-10-13] MEDS ORDERED: oxyCODONE/ACETAMINOPHEN 5-325 MG TABLET PO PRN ×2 (11:05)
[2020-10-13] MEDS ORDERED: DEXTROSE 50% 25 GM/50 ML VIAL IV PRN (11:05)
[2020-10-13] MEDS ORDERED: FLUTICASONE 50 MCG NASAL SPRAY 16 GM BOTTLE BOTH NARES PRN (11:08)
[2020-10-13] MEDS ORDERED: NITROGLYCERIN SL 0.4 MG TABLET SL PRN (11:08)
[2020-10-13] MEDS ORDERED: HEPARIN/NACL 0.9% 2 UNITS/ML 1,000 UNIT/500 ML BAG IV ONE (11:28)
[2020-10-13] MEDS ORDERED: NITROGLYCERIN DRIP 50 MG/250 ML BOTTLE IV ONE (11:28)
[2020-10-13] MEDS ORDERED: PHENYLEPHRINE DRIP 20 MG/250 ML PREMIX IV ONE (11:29)
[2020-10-13] MEDS ORDERED: PHENYLEPHRINE DRIP 40 MG/250 ML PREMIX IV SCH (11:30)
[2020-10-13] MEDS: HYDROmorphone 2 MG/1 ML VIAL IV PRN ×2 (11:55→14:04)
[2020-10-13] MEDS: LACTATED RINGERS 1,000 ML IV SCH ×2 (12:33→22:30)
[2020-10-13] MEDS: NITROPRUSSIDE 100 MG in DEXTROSE 5% 250 ML IV SCH ×2 (12:36→17:19)
[2020-10-13 14:44] LABS: Basophils % 0.3 % (0.0-0.8); Eosinophils % 0.1 % (0.00-10.9); Hemoglobin 10.1 GM/DL (14.0-18.0); Immature Granulocytes % 1.2 %; Immature Granulocytes Absolute 0.09 #; Lymphocytes # 1.6 10*3/uL (1.4-4.0); Lymphocytes % 20.6 % (21.2-54.2); Mean Corpuscular HGB Conc 33.7 GM/DL (32-36); Mean Corpuscular Volume 103.1 FL (87-102); Mean Platelet Volume 12.6 FL (9.6-12.0); Monocytes % 3.5 % (1.7-12.7); Neutrophils % 74.3 % (38.7-73.9); Platelet Count 165 T/CUMM (130-400); Red Blood Count 2.91 MC/CUMM (3.8-5.5); Red Cell Distribution Width 15.4 % (9.3-17.3); White Blood Count 7.7 T/CUMM (4-12)
[2020-10-13 15:03] LABS: Bilirubin,Direct 0.22 MG/DL (0.0-0.20); Bilirubin,Indirect 0.3 MG/DL (0.0-1.0); Bilirubin,Total 0.5 MG/DL (0.2-1.0); Calcium 8.1 MG/DL (8.5-10.1); Osmolality,Calculated 284.3 MOS/KG (273-304); Potassium 4.5 MMOL/L (3.5-5.1); Total Protein 7.2 G/DL (6.4-8.2)
[2020-10-13] MEDS ORDERED: NITROPRUSSIDE 50 MG/2 ML VIAL ONE (17:08)
[2020-10-13 17:58] VITALS: BP 167/61
[2020-10-13] MEDS: ATORVASTATIN 80 MG TABLET PO SCH (20:10)
[2020-10-13] MEDS: PANTOPRAZOLE 40 MG TABLET PO SCH (20:10)
[2020-10-13] MEDS: TICAGRELOR 90 MG TABLET PO SCH (20:12)
[2020-10-13] MEDS: carvediloL 12.5 MG TABLET PO SCH (20:18)
[2020-10-14 04:36] LABS: Basophils % 0.1 % (0.0-0.8); Hematocrit 25.8 VOL% (42.0-52.0); Immature Granulocytes % 0.9 %; Immature Granulocytes Absolute 0.11 #; Lymphocytes # 1.3 10*3/uL (1.4-4.0); Lymphocytes % 10.6 % (21.2-54.2); Mean Corpuscular HGB Conc 34.9 GM/DL (32-36); Mean Corpuscular Volume 99.2 FL (87-102); Mean Platelet Volume 12.5 FL (9.6-12.0); Monocytes % 10.4 % (1.7-12.7); Platelet Count 151 T/CUMM (130-400); Red Cell Distribution Width 14.9 % (9.3-17.3); White Blood Count 12.7 T/CUMM (4-12)
[2020-10-14 04:48] LABS: Calcium 8.6 MG/DL (8.5-10.1); Osmolality,Calculated 282.3 MOS/KG (273-304)
[2020-10-14] MEDS ORDERED: DEXTROSE 50% 25 GM/50 ML VIAL IV PRN (08:17)
[2020-10-14] MEDS ORDERED: GLUCAGON 1 MG VIAL IM PRN (08:17)
[2020-10-14] MEDS: LACTATED RINGERS 1,000 ML IV SCH (08:37)
[2020-10-14] MEDS: carvediloL 12.5 MG TABLET PO SCH ×2 (09:02→20:34)
[2020-10-14] MEDS: ASPIRIN EC 81 MG TABLET PO SCH (09:02)
[2020-10-14] MEDS: PANTOPRAZOLE 40 MG TABLET PO SCH ×2 (09:02→20:34)
[2020-10-14] MEDS: LOSARTAN 50 MG TABLET PO SCH (09:02)
[2020-10-14] MEDS: DULoxetine 30 MG CAPSULE PO SCH (09:02)
[2020-10-14] MEDS: TICAGRELOR 90 MG TABLET PO SCH ×2 (09:02→20:34)
[2020-10-14] MEDS: INSULIN REGULAR 100 UNIT/ML SUBCUT SCH ×3 (13:53→20:42)
[2020-10-14] MEDS: ACETAMINOPHEN 325 MG TABLET PO PRN (15:49)
[2020-10-14] MEDS: ATORVASTATIN 80 MG TABLET PO SCH (20:34)
[2020-10-15] MEDS: ACETAMINOPHEN 325 MG TABLET PO PRN ×2 (03:00→08:18)
[2020-10-15 06:10] LABS: Basophils % 0.1 % (0.0-0.8); Eosinophils % 0.1 % (0.00-10.9); Hematocrit 29.8 VOL% (42.0-52.0); Immature Granulocytes % 1.9 %; Immature Granulocytes Absolute 0.29 #; Lymphocytes # 2.1 10*3/uL (1.4-4.0); Lymphocytes % 13.3 % (21.2-54.2); Mean Corpuscular HGB Conc 33.6 GM/DL (32-36); Mean Corpuscular Volume 103.5 FL (87-102); Mean Platelet Volume 13.3 FL (9.6-12.0); Monocytes % 8.9 % (1.7-12.7); NRBC # 0.02 10*3/uL; Neutrophils % 75.7 % (38.7-73.9); Platelet Count 158 T/CUMM (130-400); Red Blood Count 2.88 MC/CUMM (3.8-5.5); Red Cell Distribution Width 14.9 % (9.3-17.3); White Blood Count 15.5 T/CUMM (4-12)
[2020-10-15 06:34] LABS: Hypochromasia Slight; Microcytosis Slight; Platelet Estimate Adequate
[2020-10-15 06:36] LABS: Calcium 8.9 MG/DL (8.5-10.1); Osmolality,Calculated 274.8 MOS/KG (273-304); Potassium 3.8 MMOL/L (3.5-5.1)
[2020-10-15] MEDS: INSULIN REGULAR 100 UNIT/ML SUBCUT SCH ×2 (07:53→11:44)
[2020-10-15] MEDS: ASPIRIN EC 81 MG TABLET PO SCH (08:15)
[2020-10-15] MEDS: carvediloL 12.5 MG TABLET PO SCH (08:16)
[2020-10-15] MEDS: LOSARTAN 50 MG TABLET PO SCH (08:16)
[2020-10-15] MEDS: PANTOPRAZOLE 40 MG TABLET PO SCH (08:16)
[2020-10-15] MEDS: DULoxetine 30 MG CAPSULE PO SCH (08:16)
[2020-10-15] MEDS: TICAGRELOR 90 MG TABLET PO SCH (08:16)
[2020-10-15] MEDS ORDERED: LOSARTAN 50 MG TABLET PO ONE (09:46)
[2020-10-15] MEDS ORDERED: CHLORTHALIDONE 25 MG TABLET PO SCH (09:47)
[2020-10-16] MEDS ORDERED: LOSARTAN 50 MG TABLET PO SCH (09:00)
== END 2020-10-15 13:40 | disposition home or self-care (01) | DRG 39 ==
LOC: N.SDSINP 06:41 → N.OR 06:41 → N.SDSINP 06:43 → EDSTATUS 08:30 → N.SDSINP 11:05 → N.ICU 11:56
PROVIDERS: ADMIT Surgery; ATTEND Surgery

== ENCOUNTER 2020-10-28 10:22 | Inpatient (IN) ==
[2020-10-28] MEDS ORDERED: ONDANSETRON 4 MG/2 ML VIAL IV PRN (11:52)
[2020-10-28] MEDS ORDERED: ACETAMINOPHEN 325 MG TABLET PO PRN (11:52)
[2020-10-28] MEDS ORDERED: MAGNESIUM SULF RIDER 4 GM/100 ML PREMIX IV PRN (11:54)
[2020-10-28] MEDS ORDERED: POTASSIUM CHLORIDE 20 MEQ TABLET PO PRN (11:54)
[2020-10-28] MEDS ORDERED: MAGNESIUM SULF RIDER 2 GM/50 ML PREMIX IV PRN (11:54)
[2020-10-28] MEDS ORDERED: POTASSIUM CHLORIDE RIDER 10 MEQ/100 ML PREMIX IV PRN (11:54)
[2020-10-28 13:21] LABS: Basophils % 0.4 % (0.0-0.8); Eosinophils # 0.1 10*3/uL (0.0-0.87); Eosinophils % 0.8 % (0.00-10.9); Hemoglobin 9.8 GM/DL (14.0-18.0); Immature Granulocytes % 1.6 %; Immature Granulocytes Absolute 0.15 #; Lymphocytes # 1.1 10*3/uL (1.4-4.0); Lymphocytes % 12.2 % (21.2-54.2); Mean Corpuscular HGB Conc 33.8 GM/DL (32-36); Mean Corpuscular Volume 103.2 FL (87-102); Monocytes % 11.3 % (1.7-12.7); Neutrophils % 73.7 % (38.7-73.9); Platelet Count 183 T/CUMM (130-400); Red Blood Count 2.81 MC/CUMM (3.8-5.5); Red Cell Distribution Width 16.3 % (9.3-17.3); White Blood Count 9.1 T/CUMM (4-12)
[2020-10-28] MEDS: SODIUM CHLORIDE 0.9% 1,000 ML IV SCH (13:26)
[2020-10-28 13:38] LABS: Albumin 3.1 G/DL (3.4-5.0); Bilirubin,Total 0.5 MG/DL (0.2-1.0); Calcium 8.8 MG/DL (8.5-10.1); Osmolality,Calculated 276.4 MOS/KG (273-304); Total Protein 7.6 G/DL (6.4-8.2)
[2020-10-28] MEDS: DOCUSATE SODIUM 100 MG CAPSULE PO SCH (20:35)
[2020-10-29 01:23] LABS: Bacteria,Urine Occasional /HPF (Few); Bilirubin,Urine Negative (Negative); Blood, Urine Negative (Negative); Glucose,Urine (UA) Negative (Negative); Hyaline Casts,Urine 339 /LPF (0-3); Ketones,Urine Negative (Negative); Mucus,Urine Many /LPF (Occasional); Nitrite,Urine Negative (Negative); Protein,Urine Negative; RBC,Urine 1 /HPF (0-4); Squamous Epithelial Cell,Urine Occasional /HPF (0-10); Urine Appearance CLOUDY (Clear); Urine Color Yellow (Yellow); Urine Specific Gravity 1.018 (1.001-1.035); Urine Urobilinogen < 2.0 EU/DL (0.2-1.0)
[2020-10-29 05:55] LABS: Basophils # 0.1 10*3/uL (0.0-0.2); Basophils % 0.6 % (0.0-0.8); Eosinophils # 0.1 10*3/uL (0.0-0.87); Eosinophils % 1.1 % (0.00-10.9); Hemoglobin 9.7 GM/DL (14.0-18.0); Immature Granulocytes % 1.3 %; Immature Granulocytes Absolute 0.12 #; Lymphocytes # 1.9 10*3/uL (1.4-4.0); Mean Corpuscular HGB Conc 34.6 GM/DL (32-36); Mean Corpuscular Volume 101.8 FL (87-102); Mean Platelet Volume 12.4 FL (9.6-12.0); Monocytes % 11.9 % (1.7-12.7); Neutrophils % 64.1 % (38.7-73.9); Platelet Count 157 T/CUMM (130-400); Red Blood Count 2.75 MC/CUMM (3.8-5.5); Red Cell Distribution Width 16.1 % (9.3-17.3)
[2020-10-29 06:07] LABS: Bilirubin,Total 0.5 MG/DL (0.2-1.0); Calcium 8.8 MG/DL (8.5-10.1); Osmolality,Calculated 274.1 MOS/KG (273-304); Potassium 4.1 MMOL/L (3.5-5.1); Total Protein 7.5 G/DL (6.4-8.2)
[2020-10-29] MEDS ORDERED: FLUTICASONE 50 MCG NASAL SPRAY 16 GM BOTTLE BOTH NARES PRN (07:56)
[2020-10-29] MEDS: DULoxetine 30 MG CAPSULE PO SCH (08:26)
[2020-10-29] MEDS: DOCUSATE SODIUM 100 MG CAPSULE PO SCH ×2 (08:26→20:10)
[2020-10-29] MEDS: LOSARTAN 50 MG TABLET PO SCH (08:27)
[2020-10-29] MEDS: TICAGRELOR 90 MG TABLET PO SCH ×2 (08:28→20:11)
[2020-10-29] MEDS: ASPIRIN EC 81 MG TABLET PO SCH (08:28)
[2020-10-29] MEDS: PANTOPRAZOLE 40 MG TABLET PO SCH (08:29)
[2020-10-29] MEDS: carvediloL 12.5 MG TABLET PO SCH ×2 (08:29→20:10)
[2020-10-29] MEDS ORDERED: TICAGRELOR 90 MG TABLET PO SCH (09:00)
[2020-10-29] MEDS: SODIUM CHLORIDE 0.9% 1,000 ML IV SCH (09:28)
[2020-10-29] MEDS ORDERED: NITROGLYCERIN SL 0.4 MG TABLET SL PRN (09:58)
[2020-10-29] MEDS: ATORVASTATIN 80 MG TABLET PO SCH (20:10)
[2020-10-30] MEDS: DULoxetine 30 MG CAPSULE PO SCH (08:42)
[2020-10-30] MEDS: PANTOPRAZOLE 40 MG TABLET PO SCH (08:42)
[2020-10-30] MEDS: ASPIRIN EC 81 MG TABLET PO SCH (08:43)
[2020-10-30] MEDS: DOCUSATE SODIUM 100 MG CAPSULE PO SCH ×2 (08:43→20:51)
[2020-10-30] MEDS: LOSARTAN 50 MG TABLET PO SCH (08:43)
[2020-10-30] MEDS: TICAGRELOR 90 MG TABLET PO SCH ×2 (08:43→20:50)
[2020-10-30] MEDS: carvediloL 12.5 MG TABLET PO SCH ×2 (08:43→20:50)
[2020-10-30] MEDS: cefTRIAXone 1,000 MG in SODIUM CHLORIDE 0.9% 100 ML IV SCH (13:42)
[2020-10-30] MEDS: ATORVASTATIN 80 MG TABLET PO SCH (20:50)
[2020-10-31] MEDS: ASPIRIN EC 81 MG TABLET PO SCH ×3 (08:29→11:42)
[2020-10-31] MEDS: carvediloL 12.5 MG TABLET PO SCH ×2 (08:29→20:41)
[2020-10-31] MEDS: PANTOPRAZOLE 40 MG TABLET PO SCH (08:29)
[2020-10-31] MEDS: DULoxetine 30 MG CAPSULE PO SCH ×2 (08:29→08:32)
[2020-10-31] MEDS: DOCUSATE SODIUM 100 MG CAPSULE PO SCH ×2 (08:29→20:41)
[2020-10-31] MEDS: LOSARTAN 50 MG TABLET PO SCH (08:29)
[2020-10-31] MEDS: TICAGRELOR 90 MG TABLET PO SCH ×2 (08:29→20:40)
[2020-10-31 11:13] LABS: Basophils % 0.5 % (0.0-0.8); Eosinophils # 0.1 10*3/uL (0.0-0.87); Eosinophils % 1.5 % (0.00-10.9); Hematocrit 27.9 VOL% (42.0-52.0); Hemoglobin 9.4 GM/DL (14.0-18.0); Immature Granulocytes Absolute 0.15 #; Lymphocytes # 1.1 10*3/uL (1.4-4.0); Lymphocytes % 15.1 % (21.2-54.2); Mean Corpuscular HGB Conc 33.7 GM/DL (32-36); Mean Corpuscular Volume 103.7 FL (87-102); Mean Platelet Volume 12.5 FL (9.6-12.0); Monocytes % 17.3 % (1.7-12.7); Neutrophils % 63.6 % (38.7-73.9); Platelet Count 157 T/CUMM (130-400); Red Blood Count 2.69 MC/CUMM (3.8-5.5); Red Cell Distribution Width 16.2 % (9.3-17.3); White Blood Count 7.4 T/CUMM (4-12)
[2020-10-31 11:32] LABS: Bilirubin,Total 0.4 MG/DL (0.2-1.0); Calcium 8.7 MG/DL (8.5-10.1); Osmolality,Calculated 266.5 MOS/KG (273-304); Potassium 3.8 MMOL/L (3.5-5.1); Total Protein 7.4 G/DL (6.4-8.2)
[2020-10-31] MEDS: cefTRIAXone 1,000 MG in SODIUM CHLORIDE 0.9% 100 ML IV SCH (11:42)
[2020-10-31 11:50] LABS: Band Neutrophils 16 % (0-10); Eosinophils 2 % (0-10); Lymphocytes 18 % (20-55); Macrocytosis 1+; Metamyelocytes 4 %; Platelet Estimate Normal; Polychromasia Slight; Segmented Neutrophils 44 % (50-85); Total Cells Counted 100
[2020-10-31 11:51] LABS: Anisocytosis 2+
[2020-10-31] MEDS: ATORVASTATIN 80 MG TABLET PO SCH (20:40)
[2020-11-01 08:04] VITALS: BP 146/56
[2020-11-01] MEDS: ASPIRIN EC 81 MG TABLET PO SCH (09:24)
[2020-11-01] MEDS: PANTOPRAZOLE 40 MG TABLET PO SCH (09:24)
[2020-11-01] MEDS: TICAGRELOR 90 MG TABLET PO SCH (09:24)
[2020-11-01] MEDS: LOSARTAN 50 MG TABLET PO SCH (09:24)
[2020-11-01] MEDS: DOCUSATE SODIUM 100 MG CAPSULE PO SCH (09:25)
[2020-11-01] MEDS: carvediloL 12.5 MG TABLET PO SCH (09:25)
[2020-11-01] MEDS: DULoxetine 30 MG CAPSULE PO SCH (09:30)
[2020-11-01] MEDS: cefTRIAXone 1,000 MG in SODIUM CHLORIDE 0.9% 100 ML IV SCH (12:35)
[2020-11-03 15:48] LABS: Myeloperoxidase Antibody < 0.2 U
== END 2020-11-01 12:54 | disposition home or self-care (01) | DRG 151 ==
LOC: N.5E
PROVIDERS: ADMIT Family Medicine; ATTEND Family Medicine

== ENCOUNTER 2021-01-19 08:39 | Inpatient (IN) ==
[2021-01-19] MEDS ORDERED: NITROGLYCERIN 2% OINT 1 INCH/GM PACK TOP STA (09:28)
[2021-01-19] MEDS ORDERED: ENOXAPARIN 80 MG/0.8 ML SYRINGE SUBCUT STA (09:28)
[2021-01-19 09:35] LABS: Basophils % 0.7 % (0.0-0.8); Eosinophils # 0.1 10*3/uL (0.0-0.87); Eosinophils % 1.5 % (0.00-10.9); Hematocrit 33.6 VOL% (42.0-52.0); Hemoglobin 10.6 GM/DL (14.0-18.0); Immature Granulocytes Absolute 0.06 #; Lymphocytes # 1.5 10*3/uL (1.4-4.0); Lymphocytes % 25.1 % (21.2-54.2); Mean Corpuscular HGB Conc 31.5 GM/DL (32-36); Mean Corpuscular Volume 95.2 FL (87-102); Mean Platelet Volume 13.5 FL (9.6-12.0); Monocytes % 10.5 % (1.7-12.7); Neutrophils % 61.2 % (38.7-73.9); Platelet Count 163 T/CUMM (130-400); Red Blood Count 3.53 MC/CUMM (3.8-5.5); Red Cell Distribution Width 17.4 % (9.3-17.3); White Blood Count 5.9 T/CUMM (4-12)
[2021-01-19 10:15] LABS: Platelet Estimate Adequate
[2021-01-19 10:16] LABS: Hypochromasia 1+; Microcytosis 1+
[2021-01-19 10:52] LABS: Albumin 3.5 G/DL (3.4-5.0); Bilirubin,Total 0.5 MG/DL (0.20-1.00); Osmolality,Calculated 272.2 MOS/KG (273-304); Potassium 4.3 MMOL/L (3.5-5.1); Total Protein 8.4 G/DL (6.4-8.2)
[2021-01-19 11:10] LABS: INR 1.1; PT Patient Result 12.4 SECS (10.5-12.0); Partial Thromboplastin Time 27.6 SECS (23.9-33.8)
[2021-01-19] MEDS ORDERED: ONDANSETRON 4 MG/2 ML VIAL IV PRN (12:39)
[2021-01-19] MEDS ORDERED: MAGNESIUM SULF RIDER 2 GM/50 ML PREMIX IV PRN (12:39)
[2021-01-19] MEDS ORDERED: ZALEPLON 5 MG CAPSULE PO PRN (12:39)
[2021-01-19] MEDS ORDERED: MAGNESIUM SULF RIDER 4 GM/100 ML PREMIX IV PRN (12:39)
[2021-01-19] MEDS ORDERED: FLUTICASONE 50 MCG NASAL SPRAY 16 GM BOTTLE BOTH NARES PRN (12:49)
[2021-01-19] MEDS ORDERED: NITROGLYCERIN SL 0.4 MG TABLET SL PRN (12:49)
[2021-01-19] MEDS ORDERED: DOCUSATE SODIUM 100 MG CAPSULE PO PRN (12:49)
[2021-01-19] MEDS: SODIUM CHLORIDE 0.9% 1,000 ML IV SCH (14:34)
[2021-01-19] MEDS: carvediloL 6.25 MG TABLET PO SCH (18:27)
[2021-01-19] MEDS: ATORVASTATIN 80 MG TABLET PO SCH (20:30)
[2021-01-20] MEDS ORDERED: diphenhydrAMINE CAP 25 MG CAPSULE PO ONE (00:57)
[2021-01-20] MEDS: SODIUM CHLORIDE 0.9% 1,000 ML IV SCH ×4 (03:01→23:09)
[2021-01-20 05:50] LABS: Basophils % 0.6 % (0.0-0.8); Eosinophils # 0.2 10*3/uL (0.0-0.87); Eosinophils % 2.4 % (0.00-10.9); Hematocrit 32.8 VOL% (42.0-52.0); Hemoglobin 10.5 GM/DL (14.0-18.0); Immature Granulocytes % 0.6 %; Immature Granulocytes Absolute 0.04 #; Lymphocytes # 2.1 10*3/uL (1.4-4.0); Lymphocytes % 32.4 % (21.2-54.2); Mean Corpuscular Volume 94.8 FL (87-102); Mean Platelet Volume 13.5 FL (9.6-12.0); Monocytes % 14.6 % (1.7-12.7); Neutrophils % 49.4 % (38.7-73.9); Platelet Count 182 T/CUMM (130-400); Red Blood Count 3.46 MC/CUMM (3.8-5.5); Red Cell Distribution Width 17.1 % (9.3-17.3); White Blood Count 6.6 T/CUMM (4-12)
[2021-01-20] MEDS ORDERED: diphenhydrAMINE CAP 50 MG CAPSULE PO ONE (06:00)
[2021-01-20] MEDS ORDERED: DIAZEPAM 5 MG TABLET PO ONE (06:00)
[2021-01-20 06:31] LABS: Calcium 8.6 MG/DL (8.5-10.1); Potassium 3.8 MMOL/L (3.5-5.1)
[2021-01-20] MEDS ORDERED: HEPARIN/NACL 0.9% 2 UNITS/ML 2,000 UNIT/1,000 ML BAG IV ONE (06:51)
[2021-01-20] MEDS ORDERED: LIDOCAINE 1% 20 ML VIAL ONE (06:53)
[2021-01-20] MEDS ORDERED: MORPHINE 2 MG/1 ML SYRINGE IV PRN (08:27)
[2021-01-20] MEDS ORDERED: ACETAMINOPHEN 325 MG TABLET PO PRN (08:27)
[2021-01-20] MEDS ORDERED: NON-FORMULARY MEDICATION (Omeprazole 20 mg capsule,delayed release(DR/EC)) PO SCH (09:00)
[2021-01-20] MEDS: TICAGRELOR 90 MG TABLET PO SCH ×2 (09:17→21:40)
[2021-01-20] MEDS: MULTIVITAMIN (CENTRUM) TABLET PO SCH (09:31)
[2021-01-20] MEDS: DULoxetine 30 MG CAPSULE PO SCH (09:31)
[2021-01-20] MEDS: carvediloL 6.25 MG TABLET PO SCH ×2 (09:31→16:30)
[2021-01-20] MEDS: PANTOPRAZOLE 40 MG TABLET PO SCH (09:31)
[2021-01-20] MEDS: LOSARTAN 50 MG TABLET PO SCH (09:32)
[2021-01-20] MEDS: ISOSORBIDE MONONITRATE 30 MG TABLET PO SCH (09:35)
[2021-01-20 09:41] LABS: Total Protein (Chem) 8.4 G/DL (6.4-8.3)
[2021-01-20 09:48] LABS: Albumin (SPE) 4.8 G/DL (3.2-5.3); Albumin (SPE) Rel % 57.7 %; Alpha 1 (SPE) 0.2 G/DL (0.1-0.4); Alpha 1 (SPE) Rel % 2.3 %; Alpha 2 (SPE) 0.9 G/DL (0.4-1.0); Alpha 2 (SPE) Rel % 10.3 %; Beta (SPE) 1.1 G/DL (0.5-1.1); Beta (SPE) Rel % 12.5 %; Gamma (SPE) 1.4 G/DL (0.7-1.7); Gamma (SPE) Rel % 17.2 %
[2021-01-20] MEDS: ATORVASTATIN 80 MG TABLET PO SCH (21:40)
[2021-01-21 04:45] VITALS: BP 152/76
[2021-01-21 05:29] LABS: Basophils % 0.7 % (0.0-0.8); Eosinophils # 0.1 10*3/uL (0.0-0.87); Hematocrit 29.1 VOL% (42.0-52.0); Hemoglobin 9.5 GM/DL (14.0-18.0); Immature Granulocytes % 0.5 %; Immature Granulocytes Absolute 0.03 #; Lymphocytes # 1.8 10*3/uL (1.4-4.0); Lymphocytes % 29.2 % (21.2-54.2); Mean Corpuscular HGB Conc 32.6 GM/DL (32-36); Mean Corpuscular Volume 95.4 FL (87-102); Mean Platelet Volume 13.5 FL (9.6-12.0); Monocytes % 17.5 % (1.7-12.7); Neutrophils % 50.1 % (38.7-73.9); Red Blood Count 3.05 MC/CUMM (3.8-5.5); Red Cell Distribution Width 17.2 % (9.3-17.3)
[2021-01-21 05:50] LABS: Calcium 8.1 MG/DL (8.5-10.1); Potassium 3.6 MMOL/L (3.5-5.1)
[2021-01-21 05:58] LABS: Platelet Count 135 T/CUMM (130-400)
[2021-01-21 06:02] LABS: Eosinophils 1 % (0-10); Hypochromasia 1+; Lymphocytes 20 % (20-55); Microcytosis 1+; Ovalocytes Slight; Platelet Estimate Normal; Segmented Neutrophils 55 % (50-85); Total Cells Counted 100
[2021-01-21] MEDS: SODIUM CHLORIDE 0.9% 1,000 ML IV SCH (09:26)
[2021-01-21] MEDS: ISOSORBIDE MONONITRATE 30 MG TABLET PO SCH (09:26)
[2021-01-21] MEDS: DULoxetine 30 MG CAPSULE PO SCH (09:27)
[2021-01-21] MEDS: LOSARTAN 50 MG TABLET PO SCH (09:27)
[2021-01-21] MEDS: TICAGRELOR 90 MG TABLET PO SCH (09:27)
[2021-01-21] MEDS: MULTIVITAMIN (CENTRUM) TABLET PO SCH (09:27)
[2021-01-21] MEDS: PANTOPRAZOLE 40 MG TABLET PO SCH (09:27)
[2021-01-21] MEDS: carvediloL 6.25 MG TABLET PO SCH (09:30)
== END 2021-01-21 14:56 | disposition home or self-care (01) | DRG 247 ==
LOC: EDUNIT# → N.ED 08:39 → N.EDINP 12:39 → N.TELEN 15:13
PROVIDERS: ADMIT Internal Medicine Cardiovascular Disease; ATTEND Internal Medicine Cardiovascular Disease
PROC: CLCCHCL (ICD-10-PCS; 2021-01-20 07:30)

== ENCOUNTER 2021-07-20 14:27 | Observation (INO) ==
[2021-07-20 15:29] LABS: Basophils % 0.3 % (0.0-0.8); Eosinophils # 0.1 10*3/uL (0.0-0.87); Eosinophils % 1.2 % (0.00-10.9); Hematocrit 33.6 VOL% (42.0-52.0); Hemoglobin 10.9 GM/DL (14.0-18.0); Immature Granulocytes % 0.6 %; Immature Granulocytes Absolute 0.04 #; Lymphocytes # 1.8 10*3/uL (1.4-4.0); Mean Corpuscular HGB Conc 32.4 GM/DL (32-36); Mean Corpuscular Volume 102.4 FL (87-102); Mean Platelet Volume 12.8 FL (9.6-12.0); Monocytes % 9.1 % (1.7-12.7); Neutrophils % 62.8 % (38.7-73.9); Platelet Count 151 T/CUMM (130-400); Red Blood Count 3.28 MC/CUMM (3.8-5.5); Red Cell Distribution Width 18.3 % (9.3-17.3); White Blood Count 6.8 T/CUMM (4-12)
[2021-07-20 15:53] LABS: Albumin 3.5 G/DL (3.4-5.0); Bilirubin,Total 0.8 MG/DL (0.20-1.00); Calcium 9.2 MG/DL (8.5-10.1); Osmolality,Calculated 287.1 MOS/KG (273-304); Potassium 3.7 MMOL/L (3.5-5.1); Total Protein 7.9 G/DL (6.4-8.2)
[2021-07-20] MEDS ORDERED: NITROGLYCERIN SL 0.4 MG TABLET SL PRN ×2 (16:41→19:14)
[2021-07-20] MEDS ORDERED: ASPIRIN 325 MG TABLET PO STA (16:41)
[2021-07-20] MEDS ORDERED: ENOXAPARIN 100 MG/ML SYRINGE SUBCUT STA (16:41)
[2021-07-20] MEDS ORDERED: ONDANSETRON 4 MG/2 ML VIAL IV PRN (16:45)
[2021-07-20] MEDS ORDERED: DOCUSATE SODIUM 100 MG CAPSULE PO PRN (19:14)
[2021-07-20 20:57] LABS: Bacteria,Urine Occasional /HPF (Few); Bilirubin,Urine Negative (Negative); Blood, Urine Negative (Negative); Glucose,Urine (UA) Negative (Negative); Ketones,Urine Negative (Negative); Mucus,Urine Few /LPF (Occasional); Nitrite,Urine Negative (Negative); Protein,Urine Negative; RBC,Urine 8 /HPF (0-4); Urine Appearance CLEAR (Clear); Urine Color Amber (Yellow); Urine Specific Gravity 1.026 (1.001-1.035); Urine Urobilinogen < 2.0 EU/DL (<2.0)
[2021-07-20] MEDS: ATORVASTATIN 80 MG TABLET PO SCH (21:17)
[2021-07-20] MEDS: DOCUSATE SODIUM 100 MG CAPSULE PO SCH (21:17)
[2021-07-20] MEDS: PANTOPRAZOLE 40 MG TABLET PO SCH (21:18)
[2021-07-20] MEDS: LOSARTAN 50 MG TABLET PO SCH (21:18)
[2021-07-20] MEDS: carvediloL 12.5 MG TABLET PO SCH (21:18)
[2021-07-20] MEDS: ACETAMINOPHEN 325 MG TABLET PO PRN (21:19)
[2021-07-21] MEDS ORDERED: cloNIDine 0.1 MG TABLET PO PRN ×2 (00:23→08:35)
[2021-07-21 00:59] LABS: Basophils % 0.5 % (0.0-0.8); Eosinophils # 0.1 10*3/uL (0.0-0.87); Eosinophils % 1.7 % (0.00-10.9); Hematocrit 32.6 VOL% (42.0-52.0); Hemoglobin 10.7 GM/DL (14.0-18.0); Immature Granulocytes % 0.5 %; Immature Granulocytes Absolute 0.03 #; Lymphocytes # 1.9 10*3/uL (1.4-4.0); Lymphocytes % 29.6 % (21.2-54.2); Mean Corpuscular HGB Conc 32.8 GM/DL (32-36); Mean Corpuscular Volume 102.5 FL (87-102); Mean Platelet Volume 12.8 FL (9.6-12.0); Monocytes % 9.8 % (1.7-12.7); Neutrophils % 57.9 % (38.7-73.9); Platelet Count 137 T/CUMM (130-400); Red Blood Count 3.18 MC/CUMM (3.8-5.5); Red Cell Distribution Width 18.2 % (9.3-17.3); White Blood Count 6.6 T/CUMM (4-12)
[2021-07-21 01:28] LABS: Albumin 3.3 G/DL (3.4-5.0); Bilirubin,Total 0.4 MG/DL (0.20-1.00); Osmolality,Calculated 282.4 MOS/KG (273-304); Potassium 3.6 MMOL/L (3.5-5.1); Total Protein 7.2 G/DL (6.4-8.2)
[2021-07-21] MEDS ORDERED: hydrALAZINE 20 MG/1 ML VIAL IV PRN (08:35)
[2021-07-21] MEDS ORDERED: ASPIRIN EC 81 MG TABLET PO SCH (09:00)
[2021-07-21] MEDS ORDERED: PANTOPRAZOLE 40 MG TABLET PO SCH (09:00)
[2021-07-21] MEDS ORDERED: carvediloL 12.5 MG TABLET PO ONE (09:18)
[2021-07-21] MEDS: LOSARTAN 50 MG TABLET PO SCH ×2 (10:54→20:59)
[2021-07-21] MEDS: DOCUSATE SODIUM 100 MG CAPSULE PO SCH ×2 (10:54→20:59)
[2021-07-21] MEDS: TICAGRELOR 90 MG TABLET PO SCH ×2 (10:54→20:59)
[2021-07-21] MEDS: CHLORTHALIDONE 25 MG TABLET PO SCH (10:55)
[2021-07-21] MEDS: ISOSORBIDE MONONITRATE 30 MG TABLET PO SCH (10:55)
[2021-07-21] MEDS: PANTOPRAZOLE 40 MG TABLET PO SCH ×2 (10:56→20:59)
[2021-07-21] MEDS: RANOLAZINE 500 MG TABLET PO SCH ×2 (15:28→20:59)
[2021-07-21] MEDS: amLODIPine 10 MG TABLET PO SCH (15:29)
[2021-07-21] MEDS: carvediloL 12.5 MG TABLET PO SCH (15:47)
[2021-07-21] MEDS: carvediloL 25 MG TABLET PO SCH (20:58)
[2021-07-21] MEDS: ATORVASTATIN 80 MG TABLET PO SCH (20:59)
[2021-07-22 05:50] LABS: Basophils % 0.4 % (0.0-0.8); Eosinophils # 0.1 10*3/uL (0.0-0.87); Eosinophils % 2.3 % (0.00-10.9); Hematocrit 34.5 VOL% (42.0-52.0); Hemoglobin 11.6 GM/DL (14.0-18.0); Immature Granulocytes % 0.5 %; Immature Granulocytes Absolute 0.03 #; Lymphocytes # 2.1 10*3/uL (1.4-4.0); Lymphocytes % 37.7 % (21.2-54.2); Mean Corpuscular HGB Conc 33.6 GM/DL (32-36); Mean Corpuscular Volume 100.9 FL (87-102); Mean Platelet Volume 13.7 FL (9.6-12.0); Monocytes % 9.8 % (1.7-12.7); Neutrophils % 49.3 % (38.7-73.9); Platelet Count 139 T/CUMM (130-400); Red Blood Count 3.42 MC/CUMM (3.8-5.5); Red Cell Distribution Width 17.9 % (9.3-17.3); White Blood Count 5.6 T/CUMM (4-12)
[2021-07-22 06:05] LABS: Albumin 3.3 G/DL (3.4-5.0); Bilirubin,Total 0.5 MG/DL (0.20-1.00); Calcium 9.2 MG/DL (8.5-10.1); Osmolality,Calculated 273.8 MOS/KG (273-304); Potassium 3.8 MMOL/L (3.5-5.1); Total Protein 7.8 G/DL (6.4-8.2)
[2021-07-22] MEDS ORDERED: LOSARTAN 50 MG TABLET PO SCH (09:00)
[2021-07-22] MEDS: ISOSORBIDE MONONITRATE 30 MG TABLET PO SCH (10:26)
[2021-07-22] MEDS: CHLORTHALIDONE 25 MG TABLET PO SCH (10:28)
[2021-07-22] MEDS: DOCUSATE SODIUM 100 MG CAPSULE PO SCH ×2 (10:28→22:58)
[2021-07-22] MEDS: TICAGRELOR 90 MG TABLET PO SCH (10:28)
[2021-07-22] MEDS: amLODIPine 10 MG TABLET PO SCH (10:28)
[2021-07-22] MEDS: carvediloL 25 MG TABLET PO SCH ×2 (10:28→22:59)
[2021-07-22] MEDS: PANTOPRAZOLE 40 MG TABLET PO SCH ×2 (10:29→22:58)
[2021-07-22] MEDS: RANOLAZINE 500 MG TABLET PO SCH ×2 (10:29→22:59)
[2021-07-22] MEDS: CIPROFLOXACIN INJ 400 MG/200 ML PREMIX IV SCH ×2 (10:31→23:02)
[2021-07-22] MEDS: metroNIDAZOLE INJ 500 MG/100 ML PREMIX IV SCH ×2 (13:07→19:55)
[2021-07-22] MEDS: POLYETHYLENE GLYCOL POWDER 17 GM PACK PO SCH (22:59)
[2021-07-22] MEDS: ATORVASTATIN 80 MG TABLET PO SCH (22:59)
[2021-07-23] MEDS: metroNIDAZOLE INJ 500 MG/100 ML PREMIX IV SCH ×2 (03:25→10:54)
[2021-07-23 04:29] LABS: Basophils % 0.4 % (0.0-0.8); Eosinophils # 0.1 10*3/uL (0.0-0.87); Eosinophils % 1.4 % (0.00-10.9); Hematocrit 35.1 VOL% (42.0-52.0); Immature Granulocytes % 0.4 %; Immature Granulocytes Absolute 0.02 #; Lymphocytes # 1.5 10*3/uL (1.4-4.0); Mean Corpuscular HGB Conc 34.2 GM/DL (32-36); Mean Corpuscular Volume 101.2 FL (87-102); Mean Platelet Volume 14.2 FL (9.6-12.0); Monocytes % 12.4 % (1.7-12.7); Neutrophils % 57.4 % (38.7-73.9); Platelet Count 146 T/CUMM (130-400); Red Blood Count 3.47 MC/CUMM (3.8-5.5); Red Cell Distribution Width 17.9 % (9.3-17.3); White Blood Count 5.2 T/CUMM (4-12)
[2021-07-23 04:45] LABS: Albumin 3.3 G/DL (3.4-5.0); Bilirubin,Total 0.5 MG/DL (0.20-1.00); Calcium 9.5 MG/DL (8.5-10.1); Osmolality,Calculated 272.1 MOS/KG (273-304); Potassium 3.6 MMOL/L (3.5-5.1); Total Protein 7.8 G/DL (6.4-8.2)
[2021-07-23] MEDS: ACETAMINOPHEN 325 MG TABLET PO PRN (04:56)
[2021-07-23] MEDS ORDERED: ISOSORBIDE MONONITRATE 30 MG TABLET PO SCH (09:00)
[2021-07-23] MEDS ORDERED: VALSARTAN 160 MG TABLET PO SCH (09:00)
[2021-07-23] MEDS: RANOLAZINE 500 MG TABLET PO SCH (09:12)
[2021-07-23] MEDS: carvediloL 25 MG TABLET PO SCH (09:13)
[2021-07-23] MEDS: PANTOPRAZOLE 40 MG TABLET PO SCH (09:13)
[2021-07-23] MEDS: DOCUSATE SODIUM 100 MG CAPSULE PO SCH (09:13)
[2021-07-23] MEDS: amLODIPine 10 MG TABLET PO SCH (09:14)
[2021-07-23] MEDS: CHLORTHALIDONE 25 MG TABLET PO SCH (09:14)
[2021-07-23] MEDS: POLYETHYLENE GLYCOL POWDER 17 GM PACK PO SCH ×2 (09:16→13:24)
[2021-07-23] MEDS: CIPROFLOXACIN INJ 400 MG/200 ML PREMIX IV SCH (11:56)
[2021-07-23 17:44] VITALS: BP 117/63
== END 2021-07-23 17:05 | disposition home or self-care (01) ==
LOC: N.EDINP 14:27 → N.ED 14:27 → N.TELES 22:54
PROVIDERS: ADMIT Family Medicine; ATTEND Family Medicine

== ENCOUNTER 2021-10-18 22:33 | Inpatient (IN) ==
[2021-10-18] MEDS ORDERED: ACETAMINOPHEN 500 MG TABLET PO STA (23:08)
[2021-10-18] MEDS ORDERED: PANTOPRAZOLE 40 MG VIAL IV STA (23:14)
[2021-10-18] MEDS ORDERED: SODIUM CHLORIDE 0.9% 500 ML IV STA (23:14)
[2021-10-18] MEDS ORDERED: ONDANSETRON 4 MG/2 ML VIAL IV STA (23:14)
[2021-10-18] MEDS ORDERED: HYDROmorphone 1 MG/1 ML SYRINGE IV STA (23:14)
[2021-10-18 23:32] LABS: Basophils % 0.2 % (0.0-0.8); Eosinophils % 0.1 % (0.00-10.9); Hematocrit 25.9 VOL% (42.0-52.0); Hemoglobin 8.6 GM/DL (14.0-18.0); Immature Granulocytes % 1.3 %; Immature Granulocytes Absolute 0.24 #; Lymphocytes # 1.3 10*3/uL (1.4-4.0); Lymphocytes % 6.7 % (21.2-54.2); Mean Corpuscular HGB Conc 33.2 GM/DL (32-36); Mean Corpuscular Volume 104.4 FL (87-102); Mean Platelet Volume 12.6 FL (9.6-12.0); Monocytes # 1.4 10*3/uL (0.11-0.8); Monocytes % 7.2 % (1.7-12.7); NRBC # 0.03 10*3/uL; Neutrophils % 84.5 % (38.7-73.9); Platelet Count 177 T/CUMM (130-400); Red Blood Count 2.48 MC/CUMM (3.8-5.5); Red Cell Distribution Width 15.6 % (9.3-17.3); White Blood Count 18.8 T/CUMM (4-12)
[2021-10-18 23:40] LABS: Bilirubin,Urine Negative (Negative); Blood, Urine Negative (Negative); Glucose,Urine (UA) Negative (Negative); Ketones,Urine Negative (Negative); Nitrite,Urine Negative (Negative); Protein,Urine Negative (Negative); RBC,Urine <1 /HPF (0-4); Urine Appearance Clear (Clear); Urine Color Yellow (Yellow); Urine Specific Gravity 1.015 (1.001-1.035); Urine Urobilinogen 0.2 eU/dL (<2.0); Urine pH 7.5 (4.5-8.0)
[2021-10-18 23:57] LABS: Albumin 3.3 G/DL (3.4-5.0); Bilirubin,Total 0.4 MG/DL (0.20-1.00); Calcium 8.7 MG/DL (8.5-10.1); Potassium 3.5 MMOL/L (3.5-5.1); Total Protein 7.2 G/DL (6.4-8.2)
[2021-10-19] MEDS ORDERED: cefOXitin 1,000 MG in SODIUM CHLORIDE 0.9% 100 ML IV STA (01:14)
[2021-10-19] MEDS ORDERED: ONDANSETRON 4 MG/2 ML VIAL IV PRN (02:37)
[2021-10-19] MEDS ORDERED: ACETAMINOPHEN 325 MG TABLET PO PRN (02:37)
[2021-10-19] MEDS: SODIUM CHLORIDE 0.9% 1,000 ML IV SCH ×2 (02:55→14:59)
[2021-10-19] MEDS: HYDROmorphone 1 MG/1 ML SYRINGE IV PRN ×4 (04:14→19:05)
[2021-10-19 04:16] LABS: Basophils % 0.1 % (0.0-0.8); Eosinophils % 0.1 % (0.00-10.9); Hematocrit 25.2 VOL% (42.0-52.0); Hemoglobin 8.3 GM/DL (14.0-18.0); Immature Granulocytes % 1.4 %; Immature Granulocytes Absolute 0.29 #; Lymphocytes # 2.2 10*3/uL (1.4-4.0); Lymphocytes % 10.5 % (21.2-54.2); Mean Corpuscular HGB Conc 32.9 GM/DL (32-36); Mean Platelet Volume 12.7 FL (9.6-12.0); Monocytes # 1.2 10*3/uL (0.11-0.8); Monocytes % 5.7 % (1.7-12.7); Neutrophils % 82.2 % (38.7-73.9); Platelet Count 178 T/CUMM (130-400); Red Cell Distribution Width 15.6 % (9.3-17.3); White Blood Count 20.9 T/CUMM (4-12)
[2021-10-19 04:36] LABS: Band Neutrophils 10 % (0-10); Lymphocytes 17 % (20-55); Macrocytosis Slight; Metamyelocytes 1 %; Target Cells Slight; Total Cells Counted 100
[2021-10-19 04:37] LABS: Platelet Estimate Adequate
[2021-10-19 04:40] LABS: Albumin 3.1 G/DL (3.4-5.0); Bilirubin,Total 0.4 MG/DL (0.20-1.00); Calcium 8.4 MG/DL (8.5-10.1); Osmolality,Calculated 276.8 MOS/KG (273-304); Potassium 3.6 MMOL/L (3.5-5.1); Total Protein 7.2 G/DL (6.4-8.2)
[2021-10-19] MEDS: cefOXitin 1,000 MG in SODIUM CHLORIDE 0.9% 100 ML IV SCH ×3 (08:33→22:22)
[2021-10-19] MEDS: PANTOPRAZOLE 40 MG VIAL IV SCH (08:34)
[2021-10-19] MEDS: DOCUSATE SODIUM 100 MG CAPSULE PO SCH ×2 (10:41→21:48)
[2021-10-19] MEDS ORDERED: DEXAMETHASONE 4 MG/1 ML VIAL ONE ×2 (11:39→13:13)
[2021-10-19] MEDS ORDERED: DEXMEDETOMIDINE 200 MCG/2 ML VIAL ONE (11:39)
[2021-10-19] MEDS ORDERED: LIDOCAINE 2% 5 ML VIAL ONE (11:39)
[2021-10-19] MEDS ORDERED: propofoL 200 MG/20 ML VIAL IV ONE (11:39)
[2021-10-19] MEDS ORDERED: ONDANSETRON 4 MG/2 ML VIAL ONE ×2 (11:39→13:09)
[2021-10-19] MEDS ORDERED: KETAMINE 500 MG/10 ML VIAL ONE (11:40)
[2021-10-19] MEDS ORDERED: NITROGLYCERIN 2% OINT 1 INCH/GM PACK TOP ONE (12:12)
[2021-10-19] MEDS ORDERED: MEPERIDINE 25 MG/1 ML VIAL IV ONE (12:22)
[2021-10-19] MEDS ORDERED: PHENYLEPHRINE 10 MG/1 ML VIAL IV ONE ×2 (12:23)
[2021-10-19] MEDS ORDERED: LACTATED RINGERS 1,000 ML IV SCH (12:30)
[2021-10-19] MEDS ORDERED: fentaNYL 100 MCG/2 ML VIAL ONE (12:30)
[2021-10-19] MEDS ORDERED: METOPROLOL TARTRATE 5 MG/5 ML VIAL IV ONE (12:51)
[2021-10-19] MEDS ORDERED: BUPIVACAINE MPF 0.25% 30 ML VIAL ONE (12:57)
[2021-10-19] MEDS ORDERED: NITROGLYCERIN SL 0.4 MG TABLET SL PRN (13:00)
[2021-10-19] MEDS ORDERED: DOCUSATE SODIUM 100 MG CAPSULE PO PRN (13:00)
[2021-10-19] MEDS ORDERED: NEOSTIGMINE 10 MG/10 ML VIAL ONE (13:08)
[2021-10-19] MEDS ORDERED: GLYCOPYRROLATE 0.4 MG/2 ML VIAL ONE (13:08)
[2021-10-19] MEDS ORDERED: SEVOFLURANE 1 UNIT/15 MINUTE INH ONE (13:18)
[2021-10-19] MEDS ORDERED: ISOSORBIDE MONONITRATE 30 MG TABLET PO SCH (13:30)
[2021-10-19] MEDS ORDERED: LABETALOL 20 MG/4 ML SYRINGE IV ONE (13:35)
[2021-10-19] MEDS ORDERED: ALBUTEROL/IPRATROPIUM 3 ML NEB RESP TX ONE (13:42)
[2021-10-19 14:04] LABS: Bilirubin,Urine Negative (Negative); Blood, Urine Negative (Negative); Glucose,Urine (UA) Negative (Negative); Ketones,Urine Negative (Negative); Mucus,Urine Occasional /LPF (Occasional); Nitrite,Urine Negative (Negative); Protein,Urine Negative (Negative); RBC,Urine 1 /HPF (0-4); Urine Appearance Clear (Clear); Urine Color Yellow (Yellow); Urine Specific Gravity 1.015 (1.001-1.035)
[2021-10-19 14:05] LABS: Urine Urobilinogen 0.2 eU/dL (<2.0)
[2021-10-19] MEDS: LACTATED RINGERS 1,000 ML IV SCH ×2 (15:30→23:27)
[2021-10-19] MEDS ORDERED: hydrALAZINE 20 MG/1 ML VIAL IV SCH (15:30)
[2021-10-19] MEDS: QUEtiapine 25 MG TABLET PO SCH (15:46)
[2021-10-19] MEDS: NITROGLYCERIN 2% OINT 1 INCH/GM PACK TOP SCH ×2 (16:36→22:21)
[2021-10-19] MEDS: METOPROLOL TARTRATE 5 MG/5 ML VIAL IV SCH ×3 (16:45→22:22)
[2021-10-19] MEDS ORDERED: ENALAPRIL 2.5 MG/2 ML VIAL IV PRN (16:47)
[2021-10-19] MEDS ORDERED: cloNIDine 0.3 MG/24 HR PATCH TRANSDERM SCH (17:00)
[2021-10-19] MEDS ORDERED: KETOROLAC 30 MG/1 ML VIAL IV ONE (20:12)
[2021-10-19] MEDS ORDERED: carvediloL 25 MG TABLET PO SCH (21:00)
[2021-10-19] MEDS ORDERED: RANOLAZINE 500 MG TABLET PO SCH (21:00)
[2021-10-19] MEDS ORDERED: LOSARTAN 50 MG TABLET PO SCH (21:00)
[2021-10-19] MEDS: OLANZapine 5 MG TABLET PO SCH (21:49)
[2021-10-20] MEDS: HYDROmorphone 1 MG/1 ML SYRINGE IV PRN ×5 (02:49→21:31)
[2021-10-20] MEDS: METOPROLOL TARTRATE 5 MG/5 ML VIAL IV SCH ×6 (02:50→21:35)
[2021-10-20] MEDS: NITROGLYCERIN 2% OINT 1 INCH/GM PACK TOP SCH ×4 (02:50→21:31)
[2021-10-20] MEDS ORDERED: KETOROLAC 30 MG/1 ML VIAL IV ONE ×3 (03:07→18:00)
[2021-10-20 04:33] LABS: Basophils % 0.1 % (0.0-0.8); Hematocrit 25.1 VOL% (42.0-52.0); Hemoglobin 8.1 GM/DL (14.0-18.0); Immature Granulocytes % 2.4 %; Immature Granulocytes Absolute 0.65 #; Lymphocytes # 1.6 10*3/uL (1.4-4.0); Lymphocytes % 5.8 % (21.2-54.2); Mean Corpuscular HGB Conc 32.3 GM/DL (32-36); Mean Corpuscular Volume 106.4 FL (87-102); Mean Platelet Volume 12.8 FL (9.6-12.0); Monocytes # 1.6 10*3/uL (0.11-0.8); Monocytes % 5.7 % (1.7-12.7); Platelet Count 184 T/CUMM (130-400); Red Blood Count 2.36 MC/CUMM (3.8-5.5); White Blood Count 27.4 T/CUMM (4-12)
[2021-10-20 04:53] LABS: Albumin 2.5 G/DL (3.4-5.0); Bilirubin,Total 0.8 MG/DL (0.20-1.00); Calcium 7.9 MG/DL (8.5-10.1); Osmolality,Calculated 277.7 MOS/KG (273-304); Potassium 3.8 MMOL/L (3.5-5.1); Total Protein 6.6 G/DL (6.4-8.2)
[2021-10-20 04:55] LABS: Band Neutrophils 2 % (0-10); Lymphocytes 6 % (20-55); Total Cells Counted 100
[2021-10-20 04:56] LABS: Platelet Estimate Adequate
[2021-10-20] MEDS: cefOXitin 1,000 MG in SODIUM CHLORIDE 0.9% 100 ML IV SCH (05:53)
[2021-10-20] MEDS ORDERED: ATORVASTATIN 80 MG TABLET PO SCH (09:00)
[2021-10-20] MEDS ORDERED: VALSARTAN 160 MG TABLET PO SCH (09:00)
[2021-10-20] MEDS ORDERED: NON-FORMULARY MEDICATION (Omeprazole 20 mg capsule,delayed release(DR/EC)) PO SCH (09:00)
[2021-10-20] MEDS: DOCUSATE SODIUM 100 MG CAPSULE PO SCH ×2 (09:29→21:47)
[2021-10-20] MEDS: FERROUS SULFATE 325 MG TABLET PO SCH (09:30)
[2021-10-20] MEDS: QUEtiapine 25 MG TABLET PO SCH (09:30)
[2021-10-20] MEDS: SODIUM HYPOCHLORITE 0.25% IRRIG 473 ML BOTTLE TOP SCH (09:39)
[2021-10-20] MEDS: PANTOPRAZOLE 40 MG VIAL IV SCH (09:43)
[2021-10-20] MEDS: PIPERACILLIN/TAZOBACTAM 3,375 MG in SODIUM CHLORIDE 0.9% 100 ML IV SCH ×2 (09:46→17:02)
[2021-10-20] MEDS: LACTATED RINGERS 1,000 ML IV SCH ×2 (14:50→22:55)
[2021-10-20 18:36] LABS: Bacteria,Urine Occasional /HPF (Few); Mucus,Urine Occasional /LPF (Occasional); RBC,Urine 9 /HPF (0-4)
[2021-10-20 18:45] LABS: Bilirubin,Urine Negative (Negative); Blood, Urine Moderate mg/dL (Negative); Glucose,Urine (UA) Negative (Negative); Ketones,Urine Negative (Negative); Nitrite,Urine Negative (Negative); Protein,Urine 30 mg/dL (Negative); Urine Appearance Cloudy (Clear); Urine Color Yellow (Yellow); Urine Urobilinogen 0.2 eU/dL (<2.0)
[2021-10-20] MEDS: OLANZapine 5 MG TABLET PO SCH (21:47)
[2021-10-21] MEDS: PIPERACILLIN/TAZOBACTAM 3,375 MG in SODIUM CHLORIDE 0.9% 100 ML IV SCH ×3 (01:32→17:23)
[2021-10-21] MEDS: HYDROmorphone 1 MG/1 ML SYRINGE IV PRN ×4 (01:33→23:44)
[2021-10-21] MEDS: METOPROLOL TARTRATE 5 MG/5 ML VIAL IV SCH ×6 (01:34→22:00)
[2021-10-21] MEDS: NITROGLYCERIN 2% OINT 1 INCH/GM PACK TOP SCH ×4 (02:55→21:11)
[2021-10-21] MEDS ORDERED: ACETAMINOPHEN 650 MG SUPP RECTAL PRN (03:21)
[2021-10-21] MEDS: KETOROLAC 15 MG/1 ML VIAL IV SCH ×4 (03:28→21:11)
[2021-10-21 04:12] LABS: Basophils % 0.1 % (0.0-0.8); Eosinophils # 0.1 10*3/uL (0.0-0.87); Eosinophils % 0.5 % (0.00-10.9); Hematocrit 22.8 VOL% (42.0-52.0); Hemoglobin 7.3 GM/DL (14.0-18.0); Immature Granulocytes % 1.2 %; Immature Granulocytes Absolute 0.18 #; Lymphocytes # 1.2 10*3/uL (1.4-4.0); Lymphocytes % 7.6 % (21.2-54.2); Mean Corpuscular Volume 108.1 FL (87-102); Mean Platelet Volume 12.7 FL (9.6-12.0); Monocytes % 6.4 % (1.7-12.7); Neutrophils % 84.2 % (38.7-73.9); Platelet Count 141 T/CUMM (130-400); Red Blood Count 2.11 MC/CUMM (3.8-5.5); Red Cell Distribution Width 15.9 % (9.3-17.3); White Blood Count 15.4 T/CUMM (4-12)
[2021-10-21 04:39] LABS: Lymphocytes 10 % (20-55)
[2021-10-21 04:40] LABS: Platelet Estimate Adequate; Total Cells Counted 100
[2021-10-21 04:44] LABS: Calcium 8.2 MG/DL (8.5-10.1); Osmolality,Calculated 277.5 MOS/KG (273-304); Potassium 3.8 MMOL/L (3.5-5.1)
[2021-10-21] MEDS: LACTATED RINGERS 1,000 ML IV SCH (07:01)
[2021-10-21] MEDS ORDERED: FUROSEMIDE 40 MG/4 ML VIAL IV ONE (07:41)
[2021-10-21] MEDS: FERROUS SULFATE 325 MG TABLET PO SCH (09:04)
[2021-10-21] MEDS: DOCUSATE SODIUM 100 MG CAPSULE PO SCH ×2 (09:04→21:10)
[2021-10-21] MEDS: QUEtiapine 25 MG TABLET PO SCH (09:04)
[2021-10-21] MEDS: LEVOFLOXACIN INJ 750 MG/150 ML PREMIX IV SCH (09:18)
[2021-10-21] MEDS: ENOXAPARIN 40 MG/0.4 ML SYRINGE SUBCUT SCH (09:25)
[2021-10-21] MEDS: PANTOPRAZOLE 40 MG VIAL IV SCH (09:26)
[2021-10-21] MEDS: SODIUM HYPOCHLORITE 0.25% IRRIG 473 ML BOTTLE TOP SCH (10:43)
[2021-10-21] MEDS: OLANZapine 5 MG TABLET PO SCH (21:10)
[2021-10-22] MEDS: PIPERACILLIN/TAZOBACTAM 3,375 MG in SODIUM CHLORIDE 0.9% 100 ML IV SCH ×3 (02:09→17:14)
[2021-10-22] MEDS: KETOROLAC 15 MG/1 ML VIAL IV SCH ×4 (02:59→20:35)
[2021-10-22] MEDS: METOPROLOL TARTRATE 5 MG/5 ML VIAL IV SCH ×6 (03:01→21:01)
[2021-10-22] MEDS: NITROGLYCERIN 2% OINT 1 INCH/GM PACK TOP SCH ×4 (03:08→20:38)
[2021-10-22 04:38] LABS: Basophils % 0.2 % (0.0-0.8); Eosinophils # 0.2 10*3/uL (0.0-0.87); Eosinophils % 1.9 % (0.00-10.9); Hematocrit 22.9 VOL% (42.0-52.0); Hemoglobin 7.1 GM/DL (14.0-18.0); Immature Granulocytes % 2.2 %; Immature Granulocytes Absolute 0.19 #; Lymphocytes # 1.1 10*3/uL (1.4-4.0); Lymphocytes % 12.3 % (21.2-54.2); Mean Corpuscular Volume 107.5 FL (87-102); Mean Platelet Volume 12.4 FL (9.6-12.0); Monocytes # 0.7 10*3/uL (0.11-0.8); Monocytes % 8.5 % (1.7-12.7); Neutrophils % 74.9 % (38.7-73.9); Platelet Count 131 T/CUMM (130-400); Red Blood Count 2.13 MC/CUMM (3.8-5.5); Red Cell Distribution Width 15.7 % (9.3-17.3); White Blood Count 8.6 T/CUMM (4-12)
[2021-10-22 04:52] LABS: Calcium 8.3 MG/DL (8.5-10.1); Osmolality,Calculated 283.1 MOS/KG (273-304); Potassium 3.6 MMOL/L (3.5-5.1)
[2021-10-22] MEDS: HYDROmorphone 1 MG/1 ML SYRINGE IV PRN ×4 (05:09→22:11)
[2021-10-22] MEDS: ENOXAPARIN 40 MG/0.4 ML SYRINGE SUBCUT SCH (08:02)
[2021-10-22] MEDS: DOCUSATE SODIUM 100 MG CAPSULE PO SCH ×2 (08:02→20:27)
[2021-10-22] MEDS: LEVOFLOXACIN INJ 750 MG/150 ML PREMIX IV SCH (08:02)
[2021-10-22] MEDS: FERROUS SULFATE 325 MG TABLET PO SCH (08:02)
[2021-10-22] MEDS: QUEtiapine 25 MG TABLET PO SCH (08:02)
[2021-10-22] MEDS: PANTOPRAZOLE 40 MG VIAL IV SCH (08:02)
[2021-10-22] MEDS: PANTOPRAZOLE 40 MG TABLET PO SCH (08:47)
[2021-10-22] MEDS: OLANZapine 5 MG TABLET PO SCH (20:27)
[2021-10-23] MEDS: PIPERACILLIN/TAZOBACTAM 3,375 MG in SODIUM CHLORIDE 0.9% 100 ML IV SCH ×3 (01:50→17:08)
[2021-10-23] MEDS: METOPROLOL TARTRATE 5 MG/5 ML VIAL IV SCH ×6 (03:50→21:59)
[2021-10-23 04:41] LABS: Basophils % 0.4 % (0.0-0.8); Eosinophils # 0.3 10*3/uL (0.0-0.87); Eosinophils % 3.3 % (0.00-10.9); Hematocrit 22.9 VOL% (42.0-52.0); Hemoglobin 7.3 GM/DL (14.0-18.0); Immature Granulocytes % 2.5 %; Immature Granulocytes Absolute 0.21 #; Lymphocytes # 1.3 10*3/uL (1.4-4.0); Lymphocytes % 15.7 % (21.2-54.2); Mean Corpuscular HGB Conc 31.9 GM/DL (32-36); Mean Corpuscular Volume 106.5 FL (87-102); Mean Platelet Volume 12.1 FL (9.6-12.0); Monocytes # 0.9 10*3/uL (0.11-0.8); Monocytes % 10.9 % (1.7-12.7); NRBC # 0.03 10*3/uL; Neutrophils % 67.2 % (38.7-73.9); Platelet Count 151 T/CUMM (130-400); Red Blood Count 2.15 MC/CUMM (3.8-5.5); Red Cell Distribution Width 15.8 % (9.3-17.3); White Blood Count 8.4 T/CUMM (4-12)
[2021-10-23 05:02] LABS: Calcium 8.4 MG/DL (8.5-10.1); Osmolality,Calculated 282.1 MOS/KG (273-304); Potassium 3.3 MMOL/L (3.5-5.1)
[2021-10-23] MEDS: KETOROLAC 15 MG/1 ML VIAL IV SCH ×4 (05:24→21:50)
[2021-10-23] MEDS: NITROGLYCERIN 2% OINT 1 INCH/GM PACK TOP SCH ×4 (05:24→21:50)
[2021-10-23] MEDS: HYDROmorphone 1 MG/1 ML SYRINGE IV PRN ×2 (08:20→20:51)
[2021-10-23] MEDS: LEVOFLOXACIN INJ 750 MG/150 ML PREMIX IV SCH (08:46)
[2021-10-23] MEDS: FERROUS SULFATE 325 MG TABLET PO SCH (09:39)
[2021-10-23] MEDS: DOCUSATE SODIUM 100 MG CAPSULE PO SCH ×2 (09:39→21:50)
[2021-10-23] MEDS: PANTOPRAZOLE 40 MG TABLET PO SCH (09:39)
[2021-10-23] MEDS: QUEtiapine 25 MG TABLET PO SCH (09:40)
[2021-10-23] MEDS: ENOXAPARIN 40 MG/0.4 ML SYRINGE SUBCUT SCH (09:43)
[2021-10-23] MEDS: OLANZapine 5 MG TABLET PO SCH (21:50)
[2021-10-24] MEDS: PIPERACILLIN/TAZOBACTAM 3,375 MG in SODIUM CHLORIDE 0.9% 100 ML IV SCH ×4 (00:53→17:29)
[2021-10-24] MEDS: HYDROmorphone 1 MG/1 ML SYRINGE IV PRN ×4 (00:53→21:35)
[2021-10-24] MEDS: hydrALAZINE 20 MG/1 ML VIAL IV PRN (02:10)
[2021-10-24] MEDS: METOPROLOL TARTRATE 5 MG/5 ML VIAL IV SCH ×6 (02:12→20:30)
[2021-10-24] MEDS: NITROGLYCERIN 2% OINT 1 INCH/GM PACK TOP SCH ×4 (03:06→20:30)
[2021-10-24] MEDS: KETOROLAC 15 MG/1 ML VIAL IV SCH ×4 (03:06→20:30)
[2021-10-24 04:04] LABS: Basophils % 0.3 % (0.0-0.8); Eosinophils # 0.2 10*3/uL (0.0-0.87); Eosinophils % 2.9 % (0.00-10.9); Hematocrit 22.3 VOL% (42.0-52.0); Hemoglobin 7.2 GM/DL (14.0-18.0); Immature Granulocytes % 2.6 %; Immature Granulocytes Absolute 0.21 #; Lymphocytes # 1.3 10*3/uL (1.4-4.0); Lymphocytes % 16.5 % (21.2-54.2); Mean Corpuscular HGB Conc 32.3 GM/DL (32-36); Mean Corpuscular Volume 104.2 FL (87-102); Mean Platelet Volume 12.2 FL (9.6-12.0); Monocytes # 0.8 10*3/uL (0.11-0.8); NRBC # 0.03 10*3/uL; Neutrophils % 67.7 % (38.7-73.9); Platelet Count 159 T/CUMM (130-400); Red Blood Count 2.14 MC/CUMM (3.8-5.5); Red Cell Distribution Width 15.7 % (9.3-17.3); White Blood Count 7.9 T/CUMM (4-12)
[2021-10-24 04:22] LABS: Calcium 8.1 MG/DL (8.5-10.1); Potassium 3.1 MMOL/L (3.5-5.1)
[2021-10-24] MEDS: ACETAMINOPHEN 500 MG TABLET PO PRN (04:44)
[2021-10-24] MEDS: QUEtiapine 25 MG TABLET PO SCH (09:09)
[2021-10-24] MEDS: FERROUS SULFATE 325 MG TABLET PO SCH (09:09)
[2021-10-24] MEDS: LEVOFLOXACIN INJ 750 MG/150 ML PREMIX IV SCH (09:09)
[2021-10-24] MEDS: ENOXAPARIN 40 MG/0.4 ML SYRINGE SUBCUT SCH (09:09)
[2021-10-24] MEDS: PANTOPRAZOLE 40 MG TABLET PO SCH (09:09)
[2021-10-24] MEDS: DOCUSATE SODIUM 100 MG CAPSULE PO SCH ×2 (09:09→20:30)
[2021-10-24] MEDS ORDERED: HYDROmorphone 1 MG/1 ML SYRINGE IV ONE (09:42)
[2021-10-24] MEDS: ALUMINUM/MAGNES/SIMETH MAX STR 30 ML UDCUP PO PRN (11:58)
[2021-10-24] MEDS: OLANZapine 5 MG TABLET PO SCH (20:30)
[2021-10-25] MEDS: METOPROLOL TARTRATE 5 MG/5 ML VIAL IV SCH ×6 (01:52→22:22)
[2021-10-25] MEDS: PIPERACILLIN/TAZOBACTAM 3,375 MG in SODIUM CHLORIDE 0.9% 100 ML IV SCH ×3 (02:15→18:01)
[2021-10-25] MEDS: NITROGLYCERIN 2% OINT 1 INCH/GM PACK TOP SCH ×4 (02:59→22:22)
[2021-10-25] MEDS: KETOROLAC 15 MG/1 ML VIAL IV SCH ×4 (03:15→20:00)
[2021-10-25 06:19] LABS: Basophils % 0.2 % (0.0-0.8); Eosinophils # 0.2 10*3/uL (0.0-0.87); Eosinophils % 2.5 % (0.00-10.9); Hematocrit 23.2 VOL% (42.0-52.0); Hemoglobin 7.4 GM/DL (14.0-18.0); Immature Granulocytes % 4.7 %; Lymphocytes # 1.4 10*3/uL (1.4-4.0); Lymphocytes % 16.1 % (21.2-54.2); Mean Corpuscular HGB Conc 31.9 GM/DL (32-36); Mean Corpuscular Volume 104.5 FL (87-102); Monocytes # 0.6 10*3/uL (0.11-0.8); Monocytes % 7.3 % (1.7-12.7); Neutrophils % 69.2 % (38.7-73.9); Platelet Count 169 T/CUMM (130-400); Red Blood Count 2.22 MC/CUMM (3.8-5.5); Red Cell Distribution Width 15.7 % (9.3-17.3); White Blood Count 8.5 T/CUMM (4-12)
[2021-10-25 06:35] LABS: Calcium 8.4 MG/DL (8.5-10.1); Osmolality,Calculated 279.3 MOS/KG (273-304); Potassium 3.2 MMOL/L (3.5-5.1)
[2021-10-25] MEDS: LEVOFLOXACIN INJ 750 MG/150 ML PREMIX IV SCH (08:39)
[2021-10-25] MEDS: HYDROmorphone 1 MG/1 ML SYRINGE IV PRN ×3 (08:41→20:00)
[2021-10-25] MEDS: FERROUS SULFATE 325 MG TABLET PO SCH (08:42)
[2021-10-25] MEDS: ENOXAPARIN 40 MG/0.4 ML SYRINGE SUBCUT SCH (08:42)
[2021-10-25] MEDS: PANTOPRAZOLE 40 MG TABLET PO SCH (08:42)
[2021-10-25] MEDS: DOCUSATE SODIUM 100 MG CAPSULE PO SCH ×2 (08:42→20:00)
[2021-10-25] MEDS: QUEtiapine 25 MG TABLET PO SCH (08:42)
[2021-10-25] MEDS: POTASSIUM CHLORIDE 20 MEQ TABLET PO PRN ×2 (10:34→13:25)
[2021-10-25] MEDS: diphenhydrAMINE CAP 25 MG CAPSULE PO PRN (13:39)
[2021-10-25] MEDS: OLANZapine 5 MG TABLET PO SCH (20:00)
[2021-10-26] MEDS: PIPERACILLIN/TAZOBACTAM 3,375 MG in SODIUM CHLORIDE 0.9% 100 ML IV SCH ×3 (01:45→18:13)
[2021-10-26] MEDS: NITROGLYCERIN 2% OINT 1 INCH/GM PACK TOP SCH ×4 (02:47→22:25)
[2021-10-26] MEDS: METOPROLOL TARTRATE 5 MG/5 ML VIAL IV SCH ×6 (02:47→22:25)
[2021-10-26] MEDS: HYDROmorphone 1 MG/1 ML SYRINGE IV PRN ×4 (04:15→21:35)
[2021-10-26 05:41] LABS: Basophils % 0.2 % (0.0-0.8); Eosinophils # 0.2 10*3/uL (0.0-0.87); Hematocrit 25.7 VOL% (42.0-52.0); Hemoglobin 8.1 GM/DL (14.0-18.0); Immature Granulocytes % 4.4 %; Immature Granulocytes Absolute 0.45 #; Lymphocytes # 1.6 10*3/uL (1.4-4.0); Lymphocytes % 15.9 % (21.2-54.2); Mean Corpuscular HGB Conc 31.5 GM/DL (32-36); Mean Corpuscular Volume 104.9 FL (87-102); Mean Platelet Volume 12.4 FL (9.6-12.0); Monocytes # 0.7 10*3/uL (0.11-0.8); Monocytes % 6.8 % (1.7-12.7); NRBC # 0.02 10*3/uL; Neutrophils % 70.7 % (38.7-73.9); Platelet Count 183 T/CUMM (130-400); Red Blood Count 2.45 MC/CUMM (3.8-5.5); Red Cell Distribution Width 15.9 % (9.3-17.3); White Blood Count 10.3 T/CUMM (4-12)
[2021-10-26 05:56] LABS: Calcium 8.9 MG/DL (8.5-10.1); Potassium 4.4 MMOL/L (3.5-5.1)
[2021-10-26] MEDS: LEVOFLOXACIN INJ 750 MG/150 ML PREMIX IV SCH (07:29)
[2021-10-26] MEDS: FERROUS SULFATE 325 MG TABLET PO SCH (09:02)
[2021-10-26] MEDS: ENOXAPARIN 40 MG/0.4 ML SYRINGE SUBCUT SCH (09:02)
[2021-10-26] MEDS: PANTOPRAZOLE 40 MG TABLET PO SCH (09:02)
[2021-10-26] MEDS: DOCUSATE SODIUM 100 MG CAPSULE PO SCH ×2 (09:02→21:34)
[2021-10-26] MEDS: QUEtiapine 25 MG TABLET PO SCH (09:02)
[2021-10-26] MEDS: ACETAMINOPHEN 500 MG TABLET PO PRN (09:03)
[2021-10-26 10:22] LABS: Bilirubin,Urine Negative (Negative); Glucose,Urine (UA) Negative (Negative); Ketones,Urine Negative (Negative); Nitrite,Urine Negative (Negative); Protein,Urine Negative (Negative); RBC,Urine <1 /HPF (0-4); Squamous Epithelial Cell,Urine Occasional /HPF (0-10); Urine Appearance Clear (Clear); Urine Color Yellow (Yellow); Urine Specific Gravity 1.015 (1.001-1.035); Urine pH 7.5 (4.5-8.0)
[2021-10-26 10:23] LABS: Blood, Urine Trace mg/dL (Negative); Urine Urobilinogen 0.2 eU/dL (<2.0)
[2021-10-26] MEDS: OLANZapine 5 MG TABLET PO SCH (21:34)
[2021-10-27] MEDS: PIPERACILLIN/TAZOBACTAM 3,375 MG in SODIUM CHLORIDE 0.9% 100 ML IV SCH ×3 (00:59→17:07)
[2021-10-27] MEDS: hydrALAZINE 20 MG/1 ML VIAL IV PRN (00:59)
[2021-10-27] MEDS: ACETAMINOPHEN 500 MG TABLET PO PRN ×2 (00:59→12:59)
[2021-10-27] MEDS: METOPROLOL TARTRATE 5 MG/5 ML VIAL IV SCH ×6 (02:45→21:31)
[2021-10-27] MEDS: NITROGLYCERIN 2% OINT 1 INCH/GM PACK TOP SCH ×4 (02:46→21:30)
[2021-10-27] MEDS: HYDROmorphone 1 MG/1 ML SYRINGE IV PRN ×3 (04:58→14:53)
[2021-10-27] MEDS: DOCUSATE SODIUM 100 MG CAPSULE PO SCH ×2 (09:37→21:29)
[2021-10-27] MEDS: FERROUS SULFATE 325 MG TABLET PO SCH (09:37)
[2021-10-27] MEDS: PANTOPRAZOLE 40 MG TABLET PO SCH (09:37)
[2021-10-27] MEDS: QUEtiapine 25 MG TABLET PO SCH (09:38)
[2021-10-27] MEDS: LEVOFLOXACIN INJ 750 MG/150 ML PREMIX IV SCH (09:42)
[2021-10-27] MEDS: ENOXAPARIN 40 MG/0.4 ML SYRINGE SUBCUT SCH (09:43)
[2021-10-27] MEDS: OLANZapine 5 MG TABLET PO SCH (21:29)
[2021-10-28] MEDS: HYDROmorphone 1 MG/1 ML SYRINGE IV PRN ×3 (02:16→15:46)
[2021-10-28] MEDS: METOPROLOL TARTRATE 5 MG/5 ML VIAL IV SCH ×6 (03:21→21:57)
[2021-10-28] MEDS: NITROGLYCERIN 2% OINT 1 INCH/GM PACK TOP SCH ×5 (03:21→21:54)
[2021-10-28] MEDS: ACETAMINOPHEN 500 MG TABLET PO PRN ×2 (05:37→18:30)
[2021-10-28 05:47] LABS: Basophils % 0.4 % (0.0-0.8); Eosinophils # 0.2 10*3/uL (0.0-0.87); Eosinophils % 2.1 % (0.00-10.9); Hematocrit 27.9 VOL% (42.0-52.0); Hemoglobin 8.6 GM/DL (14.0-18.0); Immature Granulocytes % 5.3 %; Lymphocytes # 1.4 10*3/uL (1.4-4.0); Lymphocytes % 18.7 % (21.2-54.2); Mean Corpuscular HGB Conc 30.8 GM/DL (32-36); Mean Corpuscular Volume 105.3 FL (87-102); Monocytes # 0.6 10*3/uL (0.11-0.8); Monocytes % 8.3 % (1.7-12.7); NRBC # 0.03 10*3/uL; Neutrophils % 65.2 % (38.7-73.9); Platelet Count 230 T/CUMM (130-400); Red Blood Count 2.65 MC/CUMM (3.8-5.5); Red Cell Distribution Width 15.8 % (9.3-17.3); White Blood Count 7.6 T/CUMM (4-12)
[2021-10-28 06:06] LABS: Albumin 2.3 G/DL (3.4-5.0); Bilirubin,Total 0.4 MG/DL (0.20-1.00); Osmolality,Calculated 275.7 MOS/KG (273-304); Potassium 3.7 MMOL/L (3.5-5.1); Total Protein 7.5 G/DL (6.4-8.2)
[2021-10-28 06:12] LABS: Band Neutrophils 1 % (0-10); Eosinophils 4 % (0-10); Hypochromia 1+; Lymphocytes 18 % (20-55); Platelet Estimate Adequate; Total Cells Counted 100
[2021-10-28] MEDS: LEVOFLOXACIN INJ 750 MG/150 ML PREMIX IV SCH (08:54)
[2021-10-28] MEDS: ENOXAPARIN 40 MG/0.4 ML SYRINGE SUBCUT SCH (10:13)
[2021-10-28] MEDS: PANTOPRAZOLE 40 MG TABLET PO SCH (10:14)
[2021-10-28] MEDS: QUEtiapine 25 MG TABLET PO SCH (10:14)
[2021-10-28] MEDS: FERROUS SULFATE 325 MG TABLET PO SCH (10:14)
[2021-10-28] MEDS: DOCUSATE SODIUM 100 MG CAPSULE PO SCH ×2 (10:15→21:53)
[2021-10-28] MEDS: ALUMINUM/MAGNES/SIMETH MAX STR 30 ML UDCUP PO PRN (14:41)
[2021-10-28] MEDS: OLANZapine 5 MG TABLET PO SCH (21:52)
[2021-10-29] MEDS: NITROGLYCERIN 2% OINT 1 INCH/GM PACK TOP SCH ×4 (04:00→21:27)
[2021-10-29] MEDS: METOPROLOL TARTRATE 5 MG/5 ML VIAL IV SCH ×6 (04:01→21:34)
[2021-10-29 05:13] LABS: Basophils % 0.4 % (0.0-0.8); Eosinophils # 0.2 10*3/uL (0.0-0.87); Eosinophils % 3.1 % (0.00-10.9); Hematocrit 27.9 VOL% (42.0-52.0); Hemoglobin 8.8 GM/DL (14.0-18.0); Immature Granulocytes % 5.5 %; Immature Granulocytes Absolute 0.37 #; Lymphocytes # 1.9 10*3/uL (1.4-4.0); Lymphocytes % 27.6 % (21.2-54.2); Mean Corpuscular HGB Conc 31.5 GM/DL (32-36); Mean Corpuscular Volume 104.9 FL (87-102); Monocytes # 0.6 10*3/uL (0.11-0.8); Monocytes % 9.2 % (1.7-12.7); NRBC # 0.04 10*3/uL; Neutrophils % 54.2 % (38.7-73.9); Platelet Count 287 T/CUMM (130-400); Red Blood Count 2.66 MC/CUMM (3.8-5.5); White Blood Count 6.7 T/CUMM (4-12)
[2021-10-29 05:32] LABS: Alanine Aminotransferase 31 U/L (16-61); Albumin 2.4 G/DL (3.4-5.0); Alkaline Phosphatase 119 U/L (45-117); Aspartate Amino Transferase 38 U/L (0-37); Bilirubin,Total < 0.39 MG/DL (0.20-1.00); Blood Urea Nitrogen 14 MG/DL (7-18); Calcium 8.9 MG/DL (8.5-10.1); Carbon Dioxide 26 MMOL/L (21-32); Chloride 109 MMOL/L (98-107); Glucose 85 MG/DL (74-106); Osmolality,Calculated 280.3 MOS/KG (273-304); Potassium 4.1 MMOL/L (3.5-5.1); Sodium 141 MMOL/L (136-145); Total Protein 7.3 G/DL (6.4-8.2)
[2021-10-29 05:42] LABS: Atypical Lymphocytes Few; Band Neutrophils 3 % (0-10); Eosinophils 3 % (0-10); Lymphocytes 33 % (20-55); Macrocytosis 1+; Myelocytes 2 %; Total Cells Counted 100
[2021-10-29 05:43] LABS: Platelet Estimate Normal; Polychromasia Slight
[2021-10-29] MEDS: PANTOPRAZOLE 40 MG TABLET PO SCH (09:33)
[2021-10-29] MEDS: DOCUSATE SODIUM 100 MG CAPSULE PO SCH ×2 (09:33→21:26)
[2021-10-29] MEDS: FERROUS SULFATE 325 MG TABLET PO SCH (09:33)
[2021-10-29] MEDS: ENOXAPARIN 40 MG/0.4 ML SYRINGE SUBCUT SCH (09:33)
[2021-10-29] MEDS: QUEtiapine 25 MG TABLET PO SCH (09:33)
[2021-10-29] MEDS: ALUMINUM/MAGNES/SIMETH MAX STR 30 ML UDCUP PO PRN (18:30)
[2021-10-29] MEDS: OLANZapine 5 MG TABLET PO SCH (21:26)
[2021-10-30] MEDS: ALUMINUM/MAGNES/SIMETH MAX STR 30 ML UDCUP PO PRN ×2 (02:02→17:45)
[2021-10-30] MEDS: ACETAMINOPHEN 500 MG TABLET PO PRN (02:04)
[2021-10-30] MEDS: METOPROLOL TARTRATE 5 MG/5 ML VIAL IV SCH ×6 (02:08→21:03)
[2021-10-30] MEDS: NITROGLYCERIN 2% OINT 1 INCH/GM PACK TOP SCH ×4 (03:04→20:58)
[2021-10-30 05:50] LABS: Basophils % 0.3 % (0.0-0.8); Eosinophils # 0.3 10*3/uL (0.0-0.87); Eosinophils % 3.8 % (0.00-10.9); Hematocrit 27.9 VOL% (42.0-52.0); Hemoglobin 8.6 GM/DL (14.0-18.0); Immature Granulocytes % 2.5 %; Immature Granulocytes Absolute 0.22 #; Lymphocytes # 2.5 10*3/uL (1.4-4.0); Lymphocytes % 28.3 % (21.2-54.2); Mean Corpuscular HGB Conc 30.8 GM/DL (32-36); Mean Corpuscular Volume 103.7 FL (87-102); Mean Platelet Volume 11.9 FL (9.6-12.0); Monocytes # 0.7 10*3/uL (0.11-0.8); Monocytes % 7.7 % (1.7-12.7); NRBC # 0.02 10*3/uL; Neutrophils % 57.4 % (38.7-73.9); Platelet Count 345 T/CUMM (130-400); Red Blood Count 2.69 MC/CUMM (3.8-5.5); Red Cell Distribution Width 15.8 % (9.3-17.3); White Blood Count 8.7 T/CUMM (4-12)
[2021-10-30 06:10] LABS: Albumin 2.7 G/DL (3.4-5.0); Bilirubin,Total 0.4 MG/DL (0.20-1.00); Calcium 8.7 MG/DL (8.5-10.1); Osmolality,Calculated 278.4 MOS/KG (273-304); Potassium 3.8 MMOL/L (3.5-5.1); Total Protein 7.3 G/DL (6.4-8.2)
[2021-10-30 06:11] LABS: Platelet Estimate Normal
[2021-10-30] MEDS: DOCUSATE SODIUM 100 MG CAPSULE PO SCH ×2 (09:58→20:57)
[2021-10-30] MEDS: PANTOPRAZOLE 40 MG TABLET PO SCH (11:21)
[2021-10-30] MEDS: QUEtiapine 25 MG TABLET PO SCH (11:21)
[2021-10-30] MEDS: FERROUS SULFATE 325 MG TABLET PO SCH (11:21)
[2021-10-30] MEDS: ENOXAPARIN 40 MG/0.4 ML SYRINGE SUBCUT SCH (11:21)
[2021-10-30] MEDS: OLANZapine 5 MG TABLET PO SCH (20:57)
[2021-10-31] MEDS: METOPROLOL TARTRATE 5 MG/5 ML VIAL IV SCH ×6 (02:15→22:37)
[2021-10-31] MEDS: NITROGLYCERIN 2% OINT 1 INCH/GM PACK TOP SCH ×4 (05:01→22:34)
[2021-10-31 05:15] LABS: Basophils % 0.5 % (0.0-0.8); Eosinophils # 0.3 10*3/uL (0.0-0.87); Eosinophils % 4.3 % (0.00-10.9); Hematocrit 28.3 VOL% (42.0-52.0); Immature Granulocytes % 3.1 %; Immature Granulocytes Absolute 0.23 #; Lymphocytes # 2.5 10*3/uL (1.4-4.0); Lymphocytes % 33.8 % (21.2-54.2); Mean Corpuscular HGB Conc 31.8 GM/DL (32-36); Mean Corpuscular Volume 103.7 FL (87-102); Mean Platelet Volume 11.5 FL (9.6-12.0); Monocytes # 0.5 10*3/uL (0.11-0.8); Neutrophils % 51.3 % (38.7-73.9); Platelet Count 390 T/CUMM (130-400); Red Blood Count 2.73 MC/CUMM (3.8-5.5); Red Cell Distribution Width 15.8 % (9.3-17.3); White Blood Count 7.4 T/CUMM (4-12)
[2021-10-31 05:32] LABS: Alanine Aminotransferase 29 U/L (16-61); Albumin 2.7 G/DL (3.4-5.0); Alkaline Phosphatase 114 U/L (45-117); Aspartate Amino Transferase 34 U/L (0-37); Bilirubin,Total < 0.39 MG/DL (0.20-1.00); Blood Urea Nitrogen 12 MG/DL (7-18); Calcium 8.5 MG/DL (8.5-10.1); Carbon Dioxide 25 MMOL/L (21-32); Chloride 109 MMOL/L (98-107); Glucose 98 MG/DL (74-106); Osmolality,Calculated 278.4 MOS/KG (273-304); Potassium 3.8 MMOL/L (3.5-5.1); Sodium 140 MMOL/L (136-145); Total Protein 7.6 G/DL (6.4-8.2)
[2021-10-31 05:59] LABS: Platelet Estimate Normal
[2021-10-31 06:00] LABS: Anisocytosis 2+
[2021-10-31] MEDS: QUEtiapine 25 MG TABLET PO SCH (09:50)
[2021-10-31] MEDS: DOCUSATE SODIUM 100 MG CAPSULE PO SCH ×2 (09:50→22:36)
[2021-10-31] MEDS: FERROUS SULFATE 325 MG TABLET PO SCH (09:50)
[2021-10-31] MEDS: ENOXAPARIN 40 MG/0.4 ML SYRINGE SUBCUT SCH (09:50)
[2021-10-31] MEDS: PANTOPRAZOLE 40 MG TABLET PO SCH (09:50)
[2021-10-31] MEDS: cefTRIAXone 1,000 MG in SODIUM CHLORIDE 0.9% 100 ML IV SCH (12:22)
[2021-10-31] MEDS: ACETAMINOPHEN 500 MG TABLET PO PRN (13:25)
[2021-10-31] MEDS: ALUMINUM/MAGNES/SIMETH MAX STR 30 ML UDCUP PO PRN (16:51)
[2021-10-31] MEDS: OLANZapine 5 MG TABLET PO SCH (22:36)
[2021-11-01] MEDS: METOPROLOL TARTRATE 5 MG/5 ML VIAL IV SCH ×3 (02:47→11:56)
[2021-11-01] MEDS: NITROGLYCERIN 2% OINT 1 INCH/GM PACK TOP SCH ×2 (02:49→11:56)
[2021-11-01 06:04] LABS: Basophils % 0.4 % (0.0-0.8); Eosinophils # 0.4 10*3/uL (0.0-0.87); Eosinophils % 4.8 % (0.00-10.9); Hematocrit 29.9 VOL% (42.0-52.0); Hemoglobin 9.1 GM/DL (14.0-18.0); Immature Granulocytes Absolute 0.22 #; Lymphocytes # 2.5 10*3/uL (1.4-4.0); Lymphocytes % 33.9 % (21.2-54.2); Mean Corpuscular HGB Conc 30.4 GM/DL (32-36); Mean Corpuscular Volume 103.8 FL (87-102); Mean Platelet Volume 11.4 FL (9.6-12.0); Monocytes # 0.7 10*3/uL (0.11-0.8); Monocytes % 9.1 % (1.7-12.7); Neutrophils % 48.8 % (38.7-73.9); Platelet Count 407 T/CUMM (130-400); Red Blood Count 2.88 MC/CUMM (3.8-5.5); Red Cell Distribution Width 15.6 % (9.3-17.3); White Blood Count 7.3 T/CUMM (4-12)
[2021-11-01 06:38] LABS: Alanine Aminotransferase 30 U/L (16-61); Albumin 2.8 G/DL (3.4-5.0); Alkaline Phosphatase 117 U/L (45-117); Aspartate Amino Transferase 37 U/L (0-37); Bilirubin,Total < 0.39 MG/DL (0.20-1.00); Blood Urea Nitrogen 9 MG/DL (7-18); Calcium 8.7 MG/DL (8.5-10.1); Carbon Dioxide 25 MMOL/L (21-32); Chloride 110 MMOL/L (98-107); Glucose 88 MG/DL (74-106); Osmolality,Calculated 278.3 MOS/KG (273-304); Potassium 4.2 MMOL/L (3.5-5.1); Sodium 141 MMOL/L (136-145); Total Protein 7.7 G/DL (6.4-8.2)
[2021-11-01] MEDS: QUEtiapine 25 MG TABLET PO SCH (10:27)
[2021-11-01] MEDS: FERROUS SULFATE 325 MG TABLET PO SCH (10:28)
[2021-11-01] MEDS: PANTOPRAZOLE 40 MG TABLET PO SCH (10:28)
[2021-11-01] MEDS: carvediloL 25 MG TABLET PO SCH ×2 (10:28→20:47)
[2021-11-01] MEDS: cefTRIAXone 1,000 MG in SODIUM CHLORIDE 0.9% 100 ML IV SCH (10:29)
[2021-11-01] MEDS: DOCUSATE SODIUM 100 MG CAPSULE PO SCH ×2 (10:29→20:47)
[2021-11-01] MEDS: ENOXAPARIN 40 MG/0.4 ML SYRINGE SUBCUT SCH (10:31)
[2021-11-01] MEDS: OLANZapine 5 MG TABLET PO SCH (20:47)
[2021-11-01] MEDS: ACETAMINOPHEN 500 MG TABLET PO PRN (20:47)
[2021-11-02] MEDS: diphenhydrAMINE CAP 25 MG CAPSULE PO PRN (00:45)
[2021-11-02 06:42] LABS: Basophils # 0.1 10*3/uL (0.0-0.2); Basophils % 0.9 % (0.0-0.8); Eosinophils # 0.3 10*3/uL (0.0-0.87); Eosinophils % 5.2 % (0.00-10.9); Hemoglobin 8.8 GM/DL (14.0-18.0); Immature Granulocytes % 2.8 %; Immature Granulocytes Absolute 0.15 #; Lymphocytes # 2.1 10*3/uL (1.4-4.0); Lymphocytes % 39.6 % (21.2-54.2); Mean Corpuscular HGB Conc 31.4 GM/DL (32-36); Mean Corpuscular Volume 104.1 FL (87-102); Mean Platelet Volume 11.3 FL (9.6-12.0); Monocytes # 0.6 10*3/uL (0.11-0.8); Monocytes % 11.7 % (1.7-12.7); Neutrophils % 39.8 % (38.7-73.9); Platelet Count 410 T/CUMM (130-400); Red Blood Count 2.69 MC/CUMM (3.8-5.5); Red Cell Distribution Width 15.7 % (9.3-17.3); White Blood Count 5.4 T/CUMM (4-12)
[2021-11-02 07:17] LABS: Alanine Aminotransferase 32 U/L (16-61); Albumin 2.7 G/DL (3.4-5.0); Alkaline Phosphatase 117 U/L (45-117); Aspartate Amino Transferase 38 U/L (0-37); Bilirubin,Total < 0.39 MG/DL (0.20-1.00); Blood Urea Nitrogen 9 MG/DL (7-18); Calcium 8.8 MG/DL (8.5-10.1); Carbon Dioxide 25 MMOL/L (21-32); Chloride 111 MMOL/L (98-107); Glucose 103 MG/DL (74-106); Osmolality,Calculated 277.4 MOS/KG (273-304); Potassium 3.7 MMOL/L (3.5-5.1); Sodium 140 MMOL/L (136-145); Total Protein 7.6 G/DL (6.4-8.2)
[2021-11-02] MEDS: ENOXAPARIN 40 MG/0.4 ML SYRINGE SUBCUT SCH (09:31)
[2021-11-02] MEDS: DOCUSATE SODIUM 100 MG CAPSULE PO SCH (09:33)
[2021-11-02] MEDS: QUEtiapine 25 MG TABLET PO SCH (09:33)
[2021-11-02] MEDS: PANTOPRAZOLE 40 MG TABLET PO SCH (09:33)
[2021-11-02] MEDS: carvediloL 25 MG TABLET PO SCH (09:34)
[2021-11-02] MEDS: FERROUS SULFATE 325 MG TABLET PO SCH (09:34)
[2021-11-02] MEDS: cefTRIAXone 1,000 MG in SODIUM CHLORIDE 0.9% 100 ML IV SCH (10:31)
[2021-11-02 11:44] VITALS: BP 174/63
== END 2021-11-02 14:04 | disposition swing bed (61) | DRG 329 ==
LOC: N.ED 22:33 → SUATTDRO 10-19 01:52 → N.EDINP 10-19 01:52 → N.ICU 10-19 14:31 → N.5E 10-24 17:27
PROVIDERS: ADMIT Family Medicine; ATTEND Family Medicine

== ENCOUNTER 2021-11-05 14:00 | Inpatient (IN) ==
[2021-11-05] MEDS ORDERED: SODIUM CHLORIDE 0.9% 1,000 ML IV STA ×2 (14:41→15:22)
[2021-11-05 14:50] LABS: Basophils % 0.6 % (0.0-0.8); Eosinophils # 0.2 10*3/uL (0.0-0.87); Eosinophils % 2.9 % (0.00-10.9); Hematocrit 26.8 VOL% (42.0-52.0); Hemoglobin 8.2 GM/DL (14.0-18.0); Immature Granulocytes % 1.9 %; Immature Granulocytes Absolute 0.14 #; Lymphocytes # 1.9 10*3/uL (1.4-4.0); Lymphocytes % 25.7 % (21.2-54.2); Mean Corpuscular HGB Conc 30.6 GM/DL (32-36); Mean Corpuscular Volume 105.5 FL (87-102); Mean Platelet Volume 11.1 FL (9.6-12.0); Monocytes # 0.6 10*3/uL (0.11-0.8); Monocytes % 8.1 % (1.7-12.7); NRBC # 0.02 10*3/uL; Neutrophils % 60.8 % (38.7-73.9); Platelet Count 518 T/CUMM (130-400); Red Blood Count 2.54 MC/CUMM (3.8-5.5); White Blood Count 7.2 T/CUMM (4-12)
[2021-11-05 15:41] LABS: INR 1.1; PT Patient Result 12.4 SECS (10.5-12.0); Partial Thromboplastin Time 27.1 SECS (23.8-32.1)
[2021-11-05 15:49] LABS: Albumin 2.9 G/DL (3.4-5.0); Bilirubin,Total 0.4 MG/DL (0.20-1.00); Calcium 9.4 MG/DL (8.5-10.1); Potassium 4.9 MMOL/L (3.5-5.1); Total Protein 6.7 G/DL (6.4-8.2)
[2021-11-05] MEDS ORDERED: LEVOFLOXACIN INJ 500 MG/100 ML PREMIX IV STA (15:51)
[2021-11-05 19:01] LABS: Bilirubin,Urine Negative (Negative); Blood, Urine Negative (Negative); Glucose,Urine (UA) Negative (Negative); Ketones,Urine Negative (Negative); Nitrite,Urine Negative (Negative); Protein,Urine Negative (Negative); Urine Appearance Clear (Clear); Urine Color Yellow (Yellow); Urine Specific Gravity 1.015 (1.001-1.035); Urine Urobilinogen 0.2 eU/dL (<2.0); Urine pH 5.5 (4.5-8.0)
[2021-11-05] MEDS ORDERED: ONDANSETRON 4 MG/2 ML VIAL IV PRN (19:04)
[2021-11-05] MEDS ORDERED: GLUCAGON 1 MG VIAL IM PRN (19:04)
[2021-11-05 19:05] LABS: Mucus,Urine Occasional /LPF (Occasional); RBC,Urine 1 /HPF (0-4); Squamous Epithelial Cell,Urine Occasional /HPF (0-10)
[2021-11-05] MEDS ORDERED: DEXTROSE 10% 250 ML BAG IV PRN ×2 (19:06→19:30)
[2021-11-05 19:57] LABS: Barbiturates Screen,Urine Negative (Negative); Benzodiazepines Screen,Urine Negative (Negative); Cannabinoid Screen,Urine Negative (Negative); Opiate Screen,Urine Positive (Negative); Phencyclidine Screen,Urine Negative (Negative)
[2021-11-05] MEDS ORDERED: PNEUMOCOCCAL VACCINE (13 VALENT) 0.5 ML SYRINGE IM ONE (20:00)
[2021-11-05] MEDS: DOCUSATE SODIUM 100 MG CAPSULE PO SCH (20:26)
[2021-11-05] MEDS: SODIUM CHLORIDE 0.9% 1,000 ML IV SCH (20:26)
[2021-11-05] MEDS: INSULIN LISPRO 100 UNIT/ML SUBCUT SCH ×2 (20:27→22:13)
[2021-11-05] MEDS ORDERED: NITROGLYCERIN SL 0.4 MG TABLET SL PRN (22:06)
[2021-11-05] MEDS ORDERED: CETIRIZINE 10 MG TABLET PO PRN (22:06)
[2021-11-05] MEDS: ACETAMINOPHEN 325 MG TABLET PO PRN (22:17)
[2021-11-05] MEDS: metroNIDAZOLE INJ 500 MG/100 ML PREMIX IV SCH (22:41)
[2021-11-06] MEDS: metroNIDAZOLE INJ 500 MG/100 ML PREMIX IV SCH ×3 (00:16→16:52)
[2021-11-06] MEDS: SODIUM CHLORIDE 0.9% 1,000 ML IV SCH ×2 (05:04→16:52)
[2021-11-06] MEDS: INSULIN LISPRO 100 UNIT/ML SUBCUT SCH ×4 (07:50→21:45)
[2021-11-06] MEDS: QUEtiapine 25 MG TABLET PO SCH (08:43)
[2021-11-06] MEDS: DOCUSATE SODIUM 100 MG CAPSULE PO SCH ×2 (08:43→22:08)
[2021-11-06] MEDS: ISOSORBIDE MONONITRATE 30 MG TABLET PO SCH (08:43)
[2021-11-06] MEDS: LOSARTAN 50 MG TABLET PO SCH (08:43)
[2021-11-06] MEDS: carvediloL 25 MG TABLET PO SCH ×2 (08:43→16:51)
[2021-11-06] MEDS: PANTOPRAZOLE 40 MG TABLET PO SCH (08:43)
[2021-11-06] MEDS: FERROUS SULFATE 325 MG TABLET PO SCH (08:43)
[2021-11-06] MEDS: RANOLAZINE 500 MG TABLET PO SCH ×2 (08:44→22:07)
[2021-11-06] MEDS: ATORVASTATIN 80 MG TABLET PO SCH (08:44)
[2021-11-06] MEDS ORDERED: LEVOFLOXACIN INJ 250 MG/50 ML PREMIX IV SCH (17:00)
[2021-11-06] MEDS ORDERED: OLANZapine ODT 5 MG TABLET PO ONE (21:00)
[2021-11-06] MEDS: OLANZAPINE 5 MG TRANSLING SCH (21:45)
[2021-11-06] MEDS: ACETAMINOPHEN 325 MG TABLET PO PRN (22:08)
[2021-11-07] MEDS: metroNIDAZOLE INJ 500 MG/100 ML PREMIX IV SCH ×3 (03:50→17:04)
[2021-11-07] MEDS: SODIUM CHLORIDE 0.9% 1,000 ML IV SCH ×3 (04:08→21:02)
[2021-11-07 06:26] LABS: Basophils % 0.8 % (0.0-0.8); Eosinophils # 0.2 10*3/uL (0.0-0.87); Eosinophils % 3.4 % (0.00-10.9); Hematocrit 27.6 VOL% (42.0-52.0); Hemoglobin 8.6 GM/DL (14.0-18.0); Immature Granulocytes % 1.7 %; Immature Granulocytes Absolute 0.08 #; Lymphocytes # 1.5 10*3/uL (1.4-4.0); Lymphocytes % 31.6 % (21.2-54.2); Mean Corpuscular HGB Conc 31.2 GM/DL (32-36); Mean Corpuscular Volume 104.5 FL (87-102); Mean Platelet Volume 11.2 FL (9.6-12.0); Monocytes # 0.5 10*3/uL (0.11-0.8); Monocytes % 10.9 % (1.7-12.7); Neutrophils % 51.6 % (38.7-73.9); Red Blood Count 2.64 MC/CUMM (3.8-5.5); Red Cell Distribution Width 16.2 % (9.3-17.3); White Blood Count 4.8 T/CUMM (4-12)
[2021-11-07 06:34] LABS: Platelet Count 378 T/CUMM (130-400)
[2021-11-07 06:41] LABS: Calcium 8.7 MG/DL (8.5-10.1); Osmolality,Calculated 281.1 MOS/KG (273-304); Potassium 3.9 MMOL/L (3.5-5.1)
[2021-11-07] MEDS: ATORVASTATIN 80 MG TABLET PO SCH (09:06)
[2021-11-07] MEDS: carvediloL 25 MG TABLET PO SCH ×2 (09:06→17:05)
[2021-11-07] MEDS: ISOSORBIDE MONONITRATE 30 MG TABLET PO SCH (09:06)
[2021-11-07] MEDS: QUEtiapine 25 MG TABLET PO SCH (09:06)
[2021-11-07] MEDS: FERROUS SULFATE 325 MG TABLET PO SCH (09:06)
[2021-11-07] MEDS: LOSARTAN 50 MG TABLET PO SCH (09:06)
[2021-11-07] MEDS: RANOLAZINE 500 MG TABLET PO SCH ×2 (09:06→21:00)
[2021-11-07] MEDS: DOCUSATE SODIUM 100 MG CAPSULE PO SCH ×2 (09:06→21:00)
[2021-11-07] MEDS: PANTOPRAZOLE 40 MG TABLET PO SCH (09:06)
[2021-11-07] MEDS: INSULIN LISPRO 100 UNIT/ML SUBCUT SCH ×3 (09:54→20:11)
[2021-11-07] MEDS: LEVOFLOXACIN INJ 500 MG/100 ML PREMIX IV SCH (19:00)
[2021-11-07] MEDS ORDERED: OLANZapine ODT 5 MG TABLET PO ONE (21:00)
[2021-11-07] MEDS: OLANZAPINE 5 MG TRANSLING SCH (21:01)
[2021-11-08] MEDS: metroNIDAZOLE INJ 500 MG/100 ML PREMIX IV SCH ×3 (01:17→16:15)
[2021-11-08] MEDS: SODIUM CHLORIDE 0.9% 1,000 ML IV SCH (04:01)
[2021-11-08] MEDS ORDERED: hydrALAZINE 20 MG/1 ML VIAL IV PRN (09:21)
[2021-11-08] MEDS: carvediloL 25 MG TABLET PO SCH ×2 (09:28→16:14)
[2021-11-08] MEDS: PANTOPRAZOLE 40 MG TABLET PO SCH (09:28)
[2021-11-08] MEDS: RANOLAZINE 500 MG TABLET PO SCH ×2 (09:28→21:22)
[2021-11-08] MEDS: ISOSORBIDE MONONITRATE 30 MG TABLET PO SCH (09:28)
[2021-11-08] MEDS: ATORVASTATIN 80 MG TABLET PO SCH (09:28)
[2021-11-08] MEDS: LOSARTAN 50 MG TABLET PO SCH (09:28)
[2021-11-08] MEDS: QUEtiapine 25 MG TABLET PO SCH (09:29)
[2021-11-08] MEDS: FERROUS SULFATE 325 MG TABLET PO SCH (09:29)
[2021-11-08] MEDS: INSULIN LISPRO 100 UNIT/ML SUBCUT SCH ×4 (09:30→22:12)
[2021-11-08] MEDS: DOCUSATE SODIUM 100 MG CAPSULE PO SCH ×2 (09:31→21:21)
[2021-11-08] MEDS: LEVOFLOXACIN INJ 500 MG/100 ML PREMIX IV SCH (17:54)
[2021-11-08] MEDS: OLANZAPINE 5 MG TRANSLING SCH (22:12)
[2021-11-09] MEDS: metroNIDAZOLE INJ 500 MG/100 ML PREMIX IV SCH ×3 (00:41→18:38)
[2021-11-09 06:22] LABS: Basophils % 0.7 % (0.0-0.8); Eosinophils # 0.1 10*3/uL (0.0-0.87); Hematocrit 24.9 VOL% (42.0-52.0); Hemoglobin 7.9 GM/DL (14.0-18.0); Immature Granulocytes % 1.3 %; Immature Granulocytes Absolute 0.04 #; Lymphocytes # 1.4 10*3/uL (1.4-4.0); Lymphocytes % 45.2 % (21.2-54.2); Mean Corpuscular HGB Conc 31.7 GM/DL (32-36); Mean Corpuscular Volume 103.8 FL (87-102); Mean Platelet Volume 11.4 FL (9.6-12.0); Monocytes # 0.5 10*3/uL (0.11-0.8); Monocytes % 16.4 % (1.7-12.7); Neutrophils % 32.4 % (38.7-73.9); Platelet Count 290 T/CUMM (130-400); Red Cell Distribution Width 16.1 % (9.3-17.3)
[2021-11-09 06:41] LABS: Alanine Aminotransferase 22 U/L (16-61); Albumin 2.5 G/DL (3.4-5.0); Alkaline Phosphatase 98 U/L (45-117); Aspartate Amino Transferase 33 U/L (0-37); Bilirubin,Total < 0.39 MG/DL (0.20-1.00); Blood Urea Nitrogen 9 MG/DL (7-18); Calcium 8.6 MG/DL (8.5-10.1); Carbon Dioxide 24 MMOL/L (21-32); Chloride 111 MMOL/L (98-107); Glucose 89 MG/DL (74-106); Osmolality,Calculated 280.1 MOS/KG (273-304); Potassium 4.2 MMOL/L (3.5-5.1); Sodium 142 MMOL/L (136-145); Total Protein 6.8 G/DL (6.4-8.2)
[2021-11-09 06:44] LABS: Eosinophils 7 % (0-10); Lymphocytes 30 % (20-55); Total Cells Counted 100
[2021-11-09 06:45] LABS: Platelet Estimate Adequate
[2021-11-09] MEDS: INSULIN LISPRO 100 UNIT/ML SUBCUT SCH ×4 (07:58→21:54)
[2021-11-09] MEDS: carvediloL 25 MG TABLET PO SCH ×2 (08:01→17:44)
[2021-11-09] MEDS: ATORVASTATIN 80 MG TABLET PO SCH (08:02)
[2021-11-09] MEDS: ISOSORBIDE MONONITRATE 30 MG TABLET PO SCH (08:02)
[2021-11-09] MEDS: LOSARTAN 50 MG TABLET PO SCH (08:03)
[2021-11-09] MEDS: DOCUSATE SODIUM 100 MG CAPSULE PO SCH ×2 (08:04→21:54)
[2021-11-09] MEDS: PANTOPRAZOLE 40 MG TABLET PO SCH (08:04)
[2021-11-09] MEDS: RANOLAZINE 500 MG TABLET PO SCH ×2 (08:04→21:54)
[2021-11-09] MEDS: ACETAMINOPHEN 325 MG TABLET PO PRN (08:05)
[2021-11-09] MEDS: QUEtiapine 25 MG TABLET PO SCH (08:05)
[2021-11-09] MEDS: SODIUM CHLORIDE 0.9% 1,000 ML IV SCH (08:11)
[2021-11-09] MEDS: FERROUS SULFATE 325 MG TABLET PO SCH (08:12)
[2021-11-09] MEDS ORDERED: MAGNESIUM SULF RIDER 4 GM/100 ML PREMIX IV PRN (12:53)
[2021-11-09] MEDS ORDERED: MAGNESIUM SULF RIDER 2 GM/50 ML PREMIX IV PRN (12:53)
[2021-11-09] MEDS ORDERED: POTASSIUM CHLORIDE RIDER 10 MEQ/100 ML PREMIX IV PRN (12:53)
[2021-11-09] MEDS: LEVOFLOXACIN INJ 500 MG/100 ML PREMIX IV SCH (19:06)
[2021-11-09] MEDS ORDERED: OLANZapine ODT 5 MG TABLET PO SCH (20:00)
[2021-11-10] MEDS: metroNIDAZOLE INJ 500 MG/100 ML PREMIX IV SCH ×2 (01:24→09:22)
[2021-11-10] MEDS: SODIUM CHLORIDE 0.9% 1,000 ML IV SCH ×3 (03:43→13:51)
[2021-11-10] MEDS: INSULIN LISPRO 100 UNIT/ML SUBCUT SCH ×2 (07:35→12:51)
[2021-11-10] MEDS: ATORVASTATIN 80 MG TABLET PO SCH (09:21)
[2021-11-10] MEDS: PANTOPRAZOLE 40 MG TABLET PO SCH (09:21)
[2021-11-10] MEDS: FERROUS SULFATE 325 MG TABLET PO SCH (09:22)
[2021-11-10] MEDS: RANOLAZINE 500 MG TABLET PO SCH (09:22)
[2021-11-10] MEDS: carvediloL 25 MG TABLET PO SCH (09:22)
[2021-11-10] MEDS: DOCUSATE SODIUM 100 MG CAPSULE PO SCH (09:22)
[2021-11-10] MEDS: ISOSORBIDE MONONITRATE 30 MG TABLET PO SCH (09:22)
[2021-11-10] MEDS: QUEtiapine 25 MG TABLET PO SCH (09:22)
[2021-11-10 11:58] VITALS: BP 156/65
[2021-11-10] MEDS: LOSARTAN 50 MG TABLET PO SCH (13:51)
== END 2021-11-10 15:43 | disposition swing bed (61) | DRG 872 ==
LOC: EDUNIT# → EDBD → N.ED 14:00 → N.EDINP 14:00 → N.3E 18:45
PROVIDERS: ADMIT Family Medicine; ATTEND Family Medicine

== ENCOUNTER 2022-01-12 14:00 | Inpatient (IN) ==
[2022-01-12] MEDS ORDERED: SODIUM CHLORIDE 0.9% 1,000 ML IV STA (14:38)
[2022-01-12 15:08] LABS: Basophils % 0.2 % (0.0-0.8); Eosinophils % 0.2 % (0.00-10.9); Hematocrit 27.4 VOL% (42.0-52.0); Hemoglobin 8.7 GM/DL (14.0-18.0); Immature Granulocytes Absolute 0.05 #; Lymphocytes % 19.7 % (21.2-54.2); Mean Corpuscular HGB Conc 31.8 GM/DL (32-36); Mean Platelet Volume 13.4 FL (9.6-12.0); Monocytes # 0.8 10*3/uL (0.11-0.8); Monocytes % 14.7 % (1.7-12.7); Neutrophils % 64.2 % (38.7-73.9); Platelet Count 123 T/CUMM (130-400); Red Blood Count 2.66 MC/CUMM (3.8-5.5); Red Cell Distribution Width 16.9 % (9.3-17.3); White Blood Count 5.2 T/CUMM (4-12)
[2022-01-12 15:17] LABS: INR 1.1; PT Patient Result 11.9 SECS (10.1-12.1)
[2022-01-12 15:32] LABS: Albumin 3.1 G/DL (3.4-5.0); Bilirubin,Total 0.4 MG/DL (0.20-1.00); Calcium 8.4 MG/DL (8.5-10.1); Osmolality,Calculated 278.5 MOS/KG (273-304); Potassium 4.3 MMOL/L (3.5-5.1); Total Protein 7.3 G/DL (6.4-8.2)
[2022-01-12 15:33] LABS: Band Neutrophils 2 % (0-10); Lymphocytes 21 % (20-55); Total Cells Counted 100
[2022-01-12 15:35] LABS: Platelet Estimate Adequate
[2022-01-12 15:36] LABS: Anisocytosis 1+; Macrocytosis 1+; Microcytosis 1+
[2022-01-12 18:04] LABS: Hyaline Casts,Urine 21 /LPF (0-3); Mucus,Urine Moderate /LPF (Occasional); Squamous Epithelial Cell,Urine Occasional /HPF (0-10)
[2022-01-12 18:07] LABS: Bilirubin,Urine Negative (Negative); Blood, Urine Negative (Negative); Glucose,Urine (UA) Negative (Negative); Ketones,Urine Negative (Negative); Nitrite,Urine Negative (Negative); Protein,Urine 30 mg/dL (Negative); Urine Appearance Clear (Clear); Urine Color Yellow (Yellow); Urine pH 5.5 (4.5-8.0)
[2022-01-12 18:30] LABS: Barbiturates Screen,Urine Negative (Negative); Benzodiazepines Screen,Urine Negative (Negative); Cannabinoid Screen,Urine Negative (Negative); Opiate Screen,Urine Positive (Negative); Phencyclidine Screen,Urine Negative (Negative)
[2022-01-12] MEDS: DOCUSATE SODIUM 100 MG CAPSULE PO SCH (22:05)
[2022-01-12] MEDS: SODIUM CHLORIDE 0.9% 1,000 ML IV SCH (22:05)
[2022-01-13] MEDS: SODIUM CHLORIDE 0.9% 1,000 ML IV SCH ×3 (05:04→16:36)
[2022-01-13] MEDS: PANTOPRAZOLE 40 MG TABLET PO SCH (05:52)
[2022-01-13] MEDS: RANOLAZINE 500 MG TABLET PO SCH ×2 (08:59→21:27)
[2022-01-13] MEDS: ISOSORBIDE MONONITRATE 30 MG TABLET PO SCH (08:59)
[2022-01-13] MEDS: ATORVASTATIN 80 MG TABLET PO SCH (09:00)
[2022-01-13] MEDS: DOCUSATE SODIUM 100 MG CAPSULE PO SCH ×2 (09:02→21:27)
[2022-01-13] MEDS: amLODIPine 5 MG TABLET PO SCH (09:07)
[2022-01-13] MEDS ORDERED: NITROGLYCERIN SL 0.4 MG TABLET SL PRN (11:50)
[2022-01-13] MEDS ORDERED: TUBERCULIN SKIN TEST 0.1 ML SYRINGE INTRADERM ONE (14:32)
[2022-01-13] MEDS: carvediloL 25 MG TABLET PO SCH (16:31)
[2022-01-13] MEDS: LOSARTAN 50 MG TABLET PO SCH (21:27)
[2022-01-14 05:36] LABS: Basophils % 0.2 % (0.0-0.8); Eosinophils % 0.7 % (0.00-10.9); Hematocrit 29.1 VOL% (42.0-52.0); Hemoglobin 9.5 GM/DL (14.0-18.0); Immature Granulocytes Absolute 0.09 #; Lymphocytes % 22.5 % (21.2-54.2); Mean Corpuscular HGB Conc 32.6 GM/DL (32-36); Mean Corpuscular Volume 100.7 FL (87-102); Mean Platelet Volume 13.1 FL (9.6-12.0); Monocytes # 0.8 10*3/uL (0.11-0.8); Monocytes % 16.7 % (1.7-12.7); Neutrophils % 57.9 % (38.7-73.9); Platelet Count 135 T/CUMM (130-400); Red Blood Count 2.89 MC/CUMM (3.8-5.5); Red Cell Distribution Width 16.4 % (9.3-17.3); White Blood Count 4.5 T/CUMM (4-12)
[2022-01-14] MEDS: PANTOPRAZOLE 40 MG TABLET PO SCH (05:50)
[2022-01-14 05:51] LABS: Calcium 8.6 MG/DL (8.5-10.1); Osmolality,Calculated 273.5 MOS/KG (273-304); Potassium 3.7 MMOL/L (3.5-5.1)
[2022-01-14 06:59] LABS: Total Protein (Chem) 6.9 G/DL (6.4-8.3)
[2022-01-14 07:03] LABS: Eosinophils 1 % (0-10); Lymphocytes 23 % (20-55); Platelet Estimate Decreased; Total Cells Counted 100
[2022-01-14] MEDS: carvediloL 25 MG TABLET PO SCH ×2 (09:25→17:05)
[2022-01-14] MEDS: amLODIPine 5 MG TABLET PO SCH (09:25)
[2022-01-14] MEDS: DOCUSATE SODIUM 100 MG CAPSULE PO SCH ×2 (09:25→21:35)
[2022-01-14] MEDS: FLUoxetine 10 MG CAPSULE PO SCH (09:25)
[2022-01-14] MEDS: RANOLAZINE 500 MG TABLET PO SCH ×2 (09:25→21:31)
[2022-01-14] MEDS: LOSARTAN 50 MG TABLET PO SCH ×2 (09:25→21:32)
[2022-01-14] MEDS: ISOSORBIDE MONONITRATE 30 MG TABLET PO SCH (09:25)
[2022-01-14] MEDS: ATORVASTATIN 80 MG TABLET PO SCH (09:25)
[2022-01-14 09:29] LABS: Albumin (SPE) 3.8 G/DL (3.2-5.3); Albumin (SPE) Rel % 55.1 %; Alpha 1 (SPE) 0.2 G/DL (0.1-0.4); Alpha 1 (SPE) Rel % 3.2 %; Alpha 2 (SPE) 0.7 G/DL (0.4-1.0); Alpha 2 (SPE) Rel % 10.7 %; Beta (SPE) 0.8 G/DL (0.5-1.1); Beta (SPE) Rel % 12.1 %; Gamma (SPE) 1.3 G/DL (0.7-1.7); Gamma (SPE) Rel % 18.9 %
[2022-01-14] MEDS: SODIUM CHLORIDE 0.9% 1,000 ML IV SCH (10:06)
[2022-01-15] MEDS: PANTOPRAZOLE 40 MG TABLET PO SCH (07:33)
[2022-01-15] MEDS: LOSARTAN 50 MG TABLET PO SCH ×2 (09:17→21:08)
[2022-01-15] MEDS: carvediloL 25 MG TABLET PO SCH ×2 (09:17→17:32)
[2022-01-15] MEDS: ISOSORBIDE MONONITRATE 30 MG TABLET PO SCH (09:17)
[2022-01-15] MEDS: DOCUSATE SODIUM 100 MG CAPSULE PO SCH ×2 (09:17→21:09)
[2022-01-15] MEDS: RANOLAZINE 500 MG TABLET PO SCH ×2 (09:17→21:08)
[2022-01-15] MEDS: amLODIPine 5 MG TABLET PO SCH (09:17)
[2022-01-15] MEDS: MAGNESIUM CHLORIDE 64 MG TABLET PO SCH (09:18)
[2022-01-15] MEDS: ATORVASTATIN 80 MG TABLET PO SCH (09:18)
[2022-01-15] MEDS: FLUoxetine 10 MG CAPSULE PO SCH (09:20)
[2022-01-15] MEDS: SODIUM CHLORIDE 0.9% 1,000 ML IV SCH (19:19)
[2022-01-16] MEDS: SODIUM CHLORIDE 0.9% 1,000 ML IV SCH ×2 (02:06→21:55)
[2022-01-16] MEDS: ACETAMINOPHEN 325 MG TABLET PO PRN (05:02)
[2022-01-16 05:43] LABS: Basophils % 0.2 % (0.0-0.8); Eosinophils % 0.4 % (0.00-10.9); Hematocrit 28.4 VOL% (42.0-52.0); Hemoglobin 9.1 GM/DL (14.0-18.0); Lymphocytes % 19.7 % (21.2-54.2); Mean Corpuscular Volume 101.4 FL (87-102); Mean Platelet Volume 12.5 FL (9.6-12.0); Monocytes # 0.8 10*3/uL (0.11-0.8); Monocytes % 15.8 % (1.7-12.7); Neutrophils % 61.9 % (38.7-73.9); Platelet Count 142 T/CUMM (130-400); Red Cell Distribution Width 16.4 % (9.3-17.3); White Blood Count 4.9 T/CUMM (4-12)
[2022-01-16 06:04] LABS: Calcium 8.8 MG/DL (8.5-10.1); Osmolality,Calculated 277.5 MOS/KG (273-304); Potassium 3.8 MMOL/L (3.5-5.1)
[2022-01-16] MEDS: PANTOPRAZOLE 40 MG TABLET PO SCH (06:10)
[2022-01-16 06:12] LABS: Band Neutrophils 2 % (0-10); Hypochromia Slight; Lymphocytes 15 % (20-55); Microcytosis Slight; Platelet Estimate Adequate; Total Cells Counted 100
[2022-01-16] MEDS: RANOLAZINE 500 MG TABLET PO SCH ×2 (09:19→21:55)
[2022-01-16] MEDS: carvediloL 25 MG TABLET PO SCH ×2 (09:19→16:45)
[2022-01-16] MEDS: ATORVASTATIN 80 MG TABLET PO SCH (09:19)
[2022-01-16] MEDS: MAGNESIUM CHLORIDE 64 MG TABLET PO SCH (09:19)
[2022-01-16] MEDS: DOCUSATE SODIUM 100 MG CAPSULE PO SCH ×2 (09:20→21:55)
[2022-01-16] MEDS: FLUoxetine 10 MG CAPSULE PO SCH (09:20)
[2022-01-16] MEDS: ISOSORBIDE MONONITRATE 30 MG TABLET PO SCH (09:20)
[2022-01-16] MEDS: amLODIPine 5 MG TABLET PO SCH (09:20)
[2022-01-16] MEDS: LOSARTAN 50 MG TABLET PO SCH ×2 (09:20→21:55)
[2022-01-17] MEDS: ONDANSETRON 4 MG/2 ML VIAL IV PRN ×2 (04:42→21:19)
[2022-01-17] MEDS: PANTOPRAZOLE 40 MG TABLET PO SCH (06:18)
[2022-01-17] MEDS: DOCUSATE SODIUM 100 MG CAPSULE PO SCH ×2 (09:06→21:18)
[2022-01-17] MEDS: amLODIPine 5 MG TABLET PO SCH (09:06)
[2022-01-17] MEDS: ATORVASTATIN 80 MG TABLET PO SCH (09:06)
[2022-01-17] MEDS: carvediloL 25 MG TABLET PO SCH ×2 (09:06→16:42)
[2022-01-17] MEDS: MAGNESIUM CHLORIDE 64 MG TABLET PO SCH (09:06)
[2022-01-17] MEDS: RANOLAZINE 500 MG TABLET PO SCH ×2 (09:06→21:18)
[2022-01-17] MEDS: ISOSORBIDE MONONITRATE 30 MG TABLET PO SCH (09:06)
[2022-01-17] MEDS: LOSARTAN 50 MG TABLET PO SCH ×2 (09:06→21:18)
[2022-01-17] MEDS: FLUoxetine 10 MG CAPSULE PO SCH (09:06)
[2022-01-17] MEDS: SODIUM CHLORIDE 0.9% 1,000 ML IV SCH (16:19)
[2022-01-18] MEDS: PANTOPRAZOLE 40 MG TABLET PO SCH (06:20)
[2022-01-18] MEDS: ATORVASTATIN 80 MG TABLET PO SCH (08:38)
[2022-01-18] MEDS: carvediloL 25 MG TABLET PO SCH ×2 (08:38→17:52)
[2022-01-18] MEDS: RANOLAZINE 500 MG TABLET PO SCH ×2 (08:38→21:03)
[2022-01-18] MEDS: MAGNESIUM CHLORIDE 64 MG TABLET PO SCH (08:39)
[2022-01-18] MEDS: FLUoxetine 10 MG CAPSULE PO SCH (08:39)
[2022-01-18] MEDS: ISOSORBIDE MONONITRATE 30 MG TABLET PO SCH (08:39)
[2022-01-18] MEDS: amLODIPine 5 MG TABLET PO SCH (08:39)
[2022-01-18] MEDS: DOCUSATE SODIUM 100 MG CAPSULE PO SCH ×2 (08:40→21:03)
[2022-01-18] MEDS: LOSARTAN 50 MG TABLET PO SCH ×2 (08:40→21:03)
[2022-01-18] MEDS: SODIUM CHLORIDE 0.9% 1,000 ML IV SCH (13:56)
[2022-01-18] MEDS: ACETAMINOPHEN 325 MG TABLET PO PRN (21:03)
[2022-01-19] MEDS: PANTOPRAZOLE 40 MG TABLET PO SCH (05:32)
[2022-01-19] MEDS: MAGNESIUM CHLORIDE 64 MG TABLET PO SCH (09:26)
[2022-01-19] MEDS: FLUoxetine 10 MG CAPSULE PO SCH (09:27)
[2022-01-19] MEDS: ATORVASTATIN 80 MG TABLET PO SCH (09:27)
[2022-01-19] MEDS: RANOLAZINE 500 MG TABLET PO SCH ×2 (09:27→20:55)
[2022-01-19] MEDS: amLODIPine 5 MG TABLET PO SCH (09:27)
[2022-01-19] MEDS: ISOSORBIDE MONONITRATE 30 MG TABLET PO SCH (09:27)
[2022-01-19] MEDS: LOSARTAN 50 MG TABLET PO SCH ×2 (09:27→20:55)
[2022-01-19] MEDS: DOCUSATE SODIUM 100 MG CAPSULE PO SCH ×2 (09:27→20:54)
[2022-01-19] MEDS: carvediloL 25 MG TABLET PO SCH ×2 (09:28→16:24)
[2022-01-19] MEDS ORDERED: ALBUTEROL/IPRATROPIUM 3 ML NEB RESP TX PRN (14:31)
[2022-01-19] MEDS: methylPREDNISolone SOD SUC 40 MG/1 ML VIAL IV SCH (15:22)
[2022-01-19] MEDS: cefTRIAXone 1,000 MG in SODIUM CHLORIDE 0.9% 100 ML IV SCH (15:22)
[2022-01-19] MEDS: ONDANSETRON 4 MG/2 ML VIAL IV PRN (20:54)
[2022-01-20] MEDS: methylPREDNISolone SOD SUC 40 MG/1 ML VIAL IV SCH ×2 (04:49→17:33)
[2022-01-20 05:51] LABS: Basophils % 0.3 % (0.0-0.8); Hemoglobin 8.9 GM/DL (14.0-18.0); Immature Granulocytes % 2.8 %; Immature Granulocytes Absolute 0.22 #; Lymphocytes # 1.1 10*3/uL (1.4-4.0); Lymphocytes % 14.1 % (21.2-54.2); Mean Corpuscular HGB Conc 34.2 GM/DL (32-36); Mean Corpuscular Volume 101.6 FL (87-102); Mean Platelet Volume 12.7 FL (9.6-12.0); Monocytes # 0.7 10*3/uL (0.11-0.8); Monocytes % 8.9 % (1.7-12.7); Neutrophils % 73.9 % (38.7-73.9); Platelet Count 205 T/CUMM (130-400); Red Blood Count 2.56 MC/CUMM (3.8-5.5); White Blood Count 7.9 T/CUMM (4-12)
[2022-01-20] MEDS: PANTOPRAZOLE 40 MG TABLET PO SCH (05:51)
[2022-01-20 06:06] LABS: Albumin 2.9 G/DL (3.4-5.0); Bilirubin,Total 0.4 MG/DL (0.20-1.00); Calcium 9.7 MG/DL (8.5-10.1); Osmolality,Calculated 278.7 MOS/KG (273-304); Potassium 3.9 MMOL/L (3.5-5.1); Total Protein 8.3 G/DL (6.4-8.2)
[2022-01-20 06:25] LABS: Hypochromia Slight; Lymphocytes 10 % (20-55); Platelet Estimate Adequate; Total Cells Counted 100
[2022-01-20 06:26] LABS: Microcytosis Slight
[2022-01-20] MEDS: LOSARTAN 50 MG TABLET PO SCH ×2 (09:48→23:01)
[2022-01-20] MEDS: carvediloL 25 MG TABLET PO SCH ×2 (09:48→17:56)
[2022-01-20] MEDS: MAGNESIUM CHLORIDE 64 MG TABLET PO SCH (09:48)
[2022-01-20] MEDS: RANOLAZINE 500 MG TABLET PO SCH ×2 (09:48→22:59)
[2022-01-20] MEDS: DOCUSATE SODIUM 100 MG CAPSULE PO SCH ×2 (09:48→22:59)
[2022-01-20] MEDS: ISOSORBIDE MONONITRATE 30 MG TABLET PO SCH (09:48)
[2022-01-20] MEDS: ATORVASTATIN 80 MG TABLET PO SCH (09:48)
[2022-01-20] MEDS: FLUoxetine 10 MG CAPSULE PO SCH (09:48)
[2022-01-20] MEDS: amLODIPine 5 MG TABLET PO SCH (09:49)
[2022-01-20] MEDS: SODIUM CHLORIDE 0.9% 1,000 ML IV SCH ×3 (10:36→18:23)
[2022-01-20] MEDS ORDERED: ALPRAZolam 0.5 MG TABLET PO ONE (12:53)
[2022-01-20] MEDS: cefTRIAXone 1,000 MG in SODIUM CHLORIDE 0.9% 100 ML IV SCH (17:33)
[2022-01-21] MEDS: methylPREDNISolone SOD SUC 40 MG/1 ML VIAL IV SCH ×2 (03:10→15:50)
[2022-01-21] MEDS: SODIUM CHLORIDE 0.9% 1,000 ML IV SCH ×2 (05:49→20:40)
[2022-01-21] MEDS: PANTOPRAZOLE 40 MG TABLET PO SCH (05:50)
[2022-01-21] MEDS: amLODIPine 5 MG TABLET PO SCH (09:46)
[2022-01-21] MEDS: ACETAMINOPHEN 325 MG TABLET PO PRN ×2 (09:47→15:31)
[2022-01-21] MEDS: ATORVASTATIN 80 MG TABLET PO SCH (09:47)
[2022-01-21] MEDS: RANOLAZINE 500 MG TABLET PO SCH ×2 (09:47→22:28)
[2022-01-21] MEDS: DOCUSATE SODIUM 100 MG CAPSULE PO SCH ×2 (09:47→22:29)
[2022-01-21] MEDS: ISOSORBIDE MONONITRATE 30 MG TABLET PO SCH (09:47)
[2022-01-21] MEDS: MAGNESIUM CHLORIDE 64 MG TABLET PO SCH (09:50)
[2022-01-21] MEDS: LOSARTAN 50 MG TABLET PO SCH ×2 (09:51→22:28)
[2022-01-21] MEDS: FLUoxetine 10 MG CAPSULE PO SCH (09:51)
[2022-01-21] MEDS: carvediloL 25 MG TABLET PO SCH ×2 (09:55→17:02)
[2022-01-21] MEDS: cefTRIAXone 1,000 MG in SODIUM CHLORIDE 0.9% 100 ML IV SCH (15:27)
[2022-01-22] MEDS: methylPREDNISolone SOD SUC 40 MG/1 ML VIAL IV SCH ×2 (02:35→16:05)
[2022-01-22] MEDS: PANTOPRAZOLE 40 MG TABLET PO SCH (05:41)
[2022-01-22] MEDS: FLUoxetine 10 MG CAPSULE PO SCH (10:15)
[2022-01-22] MEDS: ATORVASTATIN 80 MG TABLET PO SCH (10:16)
[2022-01-22] MEDS: ISOSORBIDE MONONITRATE 30 MG TABLET PO SCH (10:16)
[2022-01-22] MEDS: DOCUSATE SODIUM 100 MG CAPSULE PO SCH ×2 (10:16→21:03)
[2022-01-22] MEDS: amLODIPine 5 MG TABLET PO SCH (10:16)
[2022-01-22] MEDS: carvediloL 25 MG TABLET PO SCH ×2 (10:16→16:35)
[2022-01-22] MEDS: LOSARTAN 50 MG TABLET PO SCH ×2 (10:16→21:03)
[2022-01-22] MEDS: MAGNESIUM CHLORIDE 64 MG TABLET PO SCH (10:16)
[2022-01-22] MEDS: RANOLAZINE 500 MG TABLET PO SCH ×2 (10:16→21:03)
[2022-01-22] MEDS: cefTRIAXone 1,000 MG in SODIUM CHLORIDE 0.9% 100 ML IV SCH (15:04)
[2022-01-22] MEDS: SODIUM CHLORIDE 0.9% 1,000 ML IV SCH (15:08)
[2022-01-22] MEDS: ONDANSETRON 4 MG/2 ML VIAL IV PRN (23:22)
[2022-01-23] MEDS: methylPREDNISolone SOD SUC 40 MG/1 ML VIAL IV SCH ×2 (02:47→16:12)
[2022-01-23] MEDS: PANTOPRAZOLE 40 MG TABLET PO SCH (05:54)
[2022-01-23] MEDS: RANOLAZINE 500 MG TABLET PO SCH ×2 (09:51→21:29)
[2022-01-23] MEDS: MAGNESIUM CHLORIDE 64 MG TABLET PO SCH (09:52)
[2022-01-23] MEDS: ISOSORBIDE MONONITRATE 30 MG TABLET PO SCH (09:52)
[2022-01-23] MEDS: ATORVASTATIN 80 MG TABLET PO SCH (09:52)
[2022-01-23] MEDS: LOSARTAN 50 MG TABLET PO SCH ×2 (09:52→21:29)
[2022-01-23] MEDS: FLUoxetine 10 MG CAPSULE PO SCH (09:52)
[2022-01-23] MEDS: amLODIPine 5 MG TABLET PO SCH (09:52)
[2022-01-23] MEDS: carvediloL 25 MG TABLET PO SCH ×2 (09:52→16:11)
[2022-01-23] MEDS: DOCUSATE SODIUM 100 MG CAPSULE PO SCH ×2 (09:52→21:29)
[2022-01-23] MEDS: SODIUM CHLORIDE 0.9% 1,000 ML IV SCH (11:09)
[2022-01-23] MEDS: cefTRIAXone 1,000 MG in SODIUM CHLORIDE 0.9% 100 ML IV SCH (15:55)
[2022-01-24] MEDS: methylPREDNISolone SOD SUC 40 MG/1 ML VIAL IV SCH (03:51)
[2022-01-24 04:55] LABS: Basophils % 0.2 % (0.0-0.8); Hematocrit 26.6 VOL% (42.0-52.0); Immature Granulocytes % 6.9 %; Immature Granulocytes Absolute 0.88 #; Lymphocytes # 1.2 10*3/uL (1.4-4.0); Lymphocytes % 9.2 % (21.2-54.2); Mean Corpuscular HGB Conc 33.8 GM/DL (32-36); Mean Corpuscular Volume 99.6 FL (87-102); Mean Platelet Volume 12.5 FL (9.6-12.0); Monocytes % 8.1 % (1.7-12.7); NRBC # 0.03 10*3/uL; Neutrophils % 75.6 % (38.7-73.9); Platelet Count 212 T/CUMM (130-400); Red Blood Count 2.67 MC/CUMM (3.8-5.5); White Blood Count 12.7 T/CUMM (4-12)
[2022-01-24 05:07] LABS: Calcium 9.2 MG/DL (8.5-10.1); Osmolality,Calculated 283.3 MOS/KG (273-304); Potassium 4.2 MMOL/L (3.5-5.1)
[2022-01-24 05:34] LABS: Band Neutrophils 1 % (0-10); Hypochromia Slight; Lymphocytes 8 % (20-55); Platelet Estimate Adequate; Total Cells Counted 100
[2022-01-24] MEDS: PANTOPRAZOLE 40 MG TABLET PO SCH (06:18)
[2022-01-24] MEDS: ISOSORBIDE MONONITRATE 30 MG TABLET PO SCH (09:37)
[2022-01-24] MEDS: MAGNESIUM CHLORIDE 64 MG TABLET PO SCH (09:37)
[2022-01-24] MEDS: amLODIPine 5 MG TABLET PO SCH (09:37)
[2022-01-24] MEDS: RANOLAZINE 500 MG TABLET PO SCH (09:37)
[2022-01-24] MEDS: carvediloL 25 MG TABLET PO SCH (09:37)
[2022-01-24] MEDS: FLUoxetine 10 MG CAPSULE PO SCH (09:38)
[2022-01-24] MEDS: DOCUSATE SODIUM 100 MG CAPSULE PO SCH (09:38)
[2022-01-24] MEDS: ATORVASTATIN 80 MG TABLET PO SCH (09:38)
[2022-01-24] MEDS: LOSARTAN 50 MG TABLET PO SCH (09:38)
[2022-01-24 13:33] VITALS: BP 172/74
== END 2022-01-24 15:40 | disposition swing bed (61) | DRG 640 ==
LOC: EDUNIT# → EDBD → N.ED 14:00 → N.EDINP 14:00 → N.TELES 20:01
PROVIDERS: ADMIT Family Medicine; ATTEND Family Medicine

== ENCOUNTER 2022-03-23 15:59 | Inpatient (IN) ==
[2022-03-23] MEDS ORDERED: ENOXAPARIN 100 MG/ML SYRINGE SUBCUT STA (16:16)
[2022-03-23] MEDS ORDERED: NITROGLYCERIN SL 0.4 MG TABLET SL PRN ×2 (16:16→18:53)
[2022-03-23] MEDS ORDERED: ASPIRIN 325 MG TABLET PO STA (16:16)
[2022-03-23] MEDS ORDERED: ENOXAPARIN 80 MG/0.8 ML SYRINGE SUBCUT STA (16:18)
[2022-03-23 16:40] LABS: Basophils % 0.5 % (0.0-0.8); Eosinophils # 0.1 10*3/uL (0.0-0.87); Eosinophils % 3.3 % (0.00-10.9); Hematocrit 25.9 VOL% (42.0-52.0); Hemoglobin 8.3 GM/DL (14.0-18.0); Immature Granulocytes % 0.7 %; Immature Granulocytes Absolute 0.03 #; Lymphocytes # 1.5 10*3/uL (1.4-4.0); Lymphocytes % 35.4 % (21.2-54.2); Mean Corpuscular Volume 98.9 FL (87-102); Monocytes # 0.7 10*3/uL (0.11-0.8); Monocytes % 15.2 % (1.7-12.7); Neutrophils % 44.9 % (38.7-73.9); Platelet Count 190 T/CUMM (130-400); Red Blood Count 2.62 MC/CUMM (3.8-5.5); Red Cell Distribution Width 18.2 % (9.3-17.3); White Blood Count 4.3 T/CUMM (4-12)
[2022-03-23 17:04] LABS: Alanine Aminotransferase 22 U/L (16-61); Albumin 3.3 G/DL (3.4-5.0); Alkaline Phosphatase 77 U/L (45-117); Aspartate Amino Transferase 29 U/L (0-37); Bilirubin,Total < 0.39 MG/DL (0.20-1.00); Blood Urea Nitrogen 8 MG/DL (7-18); Calcium 8.5 MG/DL (8.5-10.1); Carbon Dioxide 24 MMOL/L (21-32); Chloride 109 MMOL/L (98-107); Glucose 124 MG/DL (74-106); Osmolality,Calculated 281.1 MOS/KG (273-304); Potassium 3.5 MMOL/L (3.5-5.1); Sodium 142 MMOL/L (136-145)
[2022-03-23] MEDS ORDERED: ACETAMINOPHEN 325 MG TABLET PO PRN (17:26)
[2022-03-23] MEDS: metroNIDAZOLE INJ 500 MG/100 ML PREMIX IV SCH (19:32)
[2022-03-23] MEDS: CIPROFLOXACIN INJ 400 MG/200 ML PREMIX IV SCH (20:14)
[2022-03-23] MEDS: DOCUSATE SODIUM 100 MG CAPSULE PO SCH (20:40)
[2022-03-23] MEDS ORDERED: RANOLAZINE 500 MG TABLET PO SCH (21:00)
[2022-03-24] MEDS: metroNIDAZOLE INJ 500 MG/100 ML PREMIX IV SCH ×3 (02:04→17:40)
[2022-03-24 05:28] LABS: Basophils % 0.8 % (0.0-0.8); Eosinophils # 0.1 10*3/uL (0.0-0.87); Eosinophils % 3.5 % (0.00-10.9); Hematocrit 26.5 VOL% (42.0-52.0); Hemoglobin 8.4 GM/DL (14.0-18.0); Immature Granulocytes % 0.8 %; Immature Granulocytes Absolute 0.03 #; Lymphocytes # 1.5 10*3/uL (1.4-4.0); Lymphocytes % 41.4 % (21.2-54.2); Mean Corpuscular HGB Conc 31.7 GM/DL (32-36); Mean Corpuscular Volume 97.4 FL (87-102); Mean Platelet Volume 12.9 FL (9.6-12.0); Monocytes # 0.5 10*3/uL (0.11-0.8); Monocytes % 14.6 % (1.7-12.7); Neutrophils % 38.9 % (38.7-73.9); Platelet Count 168 T/CUMM (130-400); Red Blood Count 2.72 MC/CUMM (3.8-5.5); Red Cell Distribution Width 17.9 % (9.3-17.3); White Blood Count 3.7 T/CUMM (4-12)
[2022-03-24 05:45] LABS: Bilirubin,Total 0.4 MG/DL (0.20-1.00); Calcium 8.6 MG/DL (8.5-10.1); Osmolality,Calculated 275.4 MOS/KG (273-304); Potassium 3.5 MMOL/L (3.5-5.1); Total Protein 6.9 G/DL (6.4-8.2)
[2022-03-24 05:46] LABS: Anisocytosis 2+; Poikilocytosis 2+
[2022-03-24 05:47] LABS: Hypochromia Slight; Microcytosis Slight; Platelet Estimate Adequate
[2022-03-24] MEDS: ISOSORBIDE MONONITRATE 30 MG TABLET PO SCH (08:36)
[2022-03-24] MEDS: RANOLAZINE 500 MG TABLET PO SCH ×2 (08:37→21:54)
[2022-03-24] MEDS: carvediloL 25 MG TABLET PO SCH ×2 (08:37→17:22)
[2022-03-24] MEDS: PANTOPRAZOLE 40 MG TABLET PO SCH (08:37)
[2022-03-24] MEDS: amLODIPine 10 MG TABLET PO SCH (08:37)
[2022-03-24] MEDS: ATORVASTATIN 80 MG TABLET PO SCH (08:37)
[2022-03-24] MEDS: DOCUSATE SODIUM 100 MG CAPSULE PO SCH ×2 (08:37→21:56)
[2022-03-24] MEDS: CIPROFLOXACIN INJ 400 MG/200 ML PREMIX IV SCH ×2 (08:37→21:59)
[2022-03-24] MEDS: FLUoxetine 10 MG CAPSULE PO SCH (08:49)
[2022-03-24] MEDS ORDERED: amLODIPine 5 MG TABLET PO SCH (09:00)
[2022-03-24] MEDS ORDERED: hydrALAZINE 20 MG/1 ML VIAL IV PRN (09:55)
[2022-03-24] MEDS: ONDANSETRON 4 MG/2 ML VIAL IV PRN (10:38)
[2022-03-24] MEDS: hydrALAZINE 25 MG TABLET PO SCH ×2 (10:39→21:55)
[2022-03-24] MEDS ORDERED: TUBERCULIN SKIN TEST 0.1 ML SYRINGE INTRADERM ONE (16:27)
[2022-03-24] MEDS: LOSARTAN 50 MG TABLET PO SCH (22:09)
[2022-03-25] MEDS: metroNIDAZOLE INJ 500 MG/100 ML PREMIX IV SCH ×3 (02:10→17:40)
[2022-03-25] MEDS: CIPROFLOXACIN INJ 400 MG/200 ML PREMIX IV SCH ×2 (07:27→21:19)
[2022-03-25] MEDS: carvediloL 25 MG TABLET PO SCH ×2 (07:30→16:07)
[2022-03-25] MEDS: DOCUSATE SODIUM 100 MG CAPSULE PO SCH ×2 (09:52→21:23)
[2022-03-25] MEDS: amLODIPine 10 MG TABLET PO SCH (09:52)
[2022-03-25] MEDS: PANTOPRAZOLE 40 MG TABLET PO SCH (09:52)
[2022-03-25] MEDS: LOSARTAN 50 MG TABLET PO SCH ×2 (09:52→21:23)
[2022-03-25] MEDS: hydrALAZINE 25 MG TABLET PO SCH ×2 (09:52→21:22)
[2022-03-25] MEDS: RANOLAZINE 500 MG TABLET PO SCH ×2 (09:53→21:23)
[2022-03-25] MEDS: ATORVASTATIN 80 MG TABLET PO SCH (09:53)
[2022-03-25] MEDS: ISOSORBIDE MONONITRATE 30 MG TABLET PO SCH (09:53)
[2022-03-25] MEDS: FLUoxetine 10 MG CAPSULE PO SCH (09:55)
[2022-03-25] MEDS: diphenhydrAMINE CAP 25 MG CAPSULE PO PRN (22:57)
[2022-03-26] MEDS: metroNIDAZOLE INJ 500 MG/100 ML PREMIX IV SCH ×3 (02:11→17:35)
[2022-03-26] MEDS: CIPROFLOXACIN INJ 400 MG/200 ML PREMIX IV SCH ×2 (08:24→20:18)
[2022-03-26] MEDS: amLODIPine 10 MG TABLET PO SCH (08:25)
[2022-03-26] MEDS: hydrALAZINE 25 MG TABLET PO SCH ×2 (08:25→20:18)
[2022-03-26] MEDS: PANTOPRAZOLE 40 MG TABLET PO SCH (08:25)
[2022-03-26] MEDS: DOCUSATE SODIUM 100 MG CAPSULE PO SCH ×2 (08:25→20:18)
[2022-03-26] MEDS: carvediloL 25 MG TABLET PO SCH ×2 (08:25→16:05)
[2022-03-26] MEDS: FLUoxetine 10 MG CAPSULE PO SCH (08:25)
[2022-03-26] MEDS: LOSARTAN 50 MG TABLET PO SCH ×2 (08:25→20:18)
[2022-03-26] MEDS: ISOSORBIDE MONONITRATE 30 MG TABLET PO SCH (08:26)
[2022-03-26] MEDS: ATORVASTATIN 80 MG TABLET PO SCH (08:27)
[2022-03-26] MEDS: RANOLAZINE 500 MG TABLET PO SCH ×2 (08:27→20:18)
[2022-03-26 12:38] LABS: Bilirubin,Urine Negative (Negative); Blood, Urine Negative (Negative); Glucose,Urine (UA) Negative (Negative); Ketones,Urine Negative (Negative); Nitrite,Urine Negative (Negative); Protein,Urine Negative (Negative); RBC,Urine <1 /HPF (0-4); Urine Appearance CLEAR (Clear); Urine Color Yellow (Yellow); Urine Urobilinogen < 2.0 eU/dL (<2.0)
[2022-03-26] MEDS: ONDANSETRON 4 MG/2 ML VIAL IV PRN (14:27)
[2022-03-26] MEDS: diphenhydrAMINE CAP 25 MG CAPSULE PO PRN (16:04)
[2022-03-27] MEDS: metroNIDAZOLE INJ 500 MG/100 ML PREMIX IV SCH ×3 (01:33→18:00)
[2022-03-27] MEDS: diphenhydrAMINE CAP 25 MG CAPSULE PO PRN (01:45)
[2022-03-27 06:03] LABS: Basophils % 0.8 % (0.0-0.8); Eosinophils # 0.2 10*3/uL (0.0-0.87); Eosinophils % 4.2 % (0.00-10.9); Hematocrit 26.2 VOL% (42.0-52.0); Hemoglobin 8.4 GM/DL (14.0-18.0); Immature Granulocytes % 0.8 %; Immature Granulocytes Absolute 0.03 #; Lymphocytes # 1.3 10*3/uL (1.4-4.0); Lymphocytes % 36.9 % (21.2-54.2); Mean Corpuscular HGB Conc 32.1 GM/DL (32-36); Mean Corpuscular Volume 98.1 FL (87-102); Mean Platelet Volume 13.3 FL (9.6-12.0); Monocytes # 0.6 10*3/uL (0.11-0.8); Monocytes % 17.5 % (1.7-12.7); Neutrophils % 39.8 % (38.7-73.9); Platelet Count 168 T/CUMM (130-400); Red Blood Count 2.67 MC/CUMM (3.8-5.5); White Blood Count 3.6 T/CUMM (4-12)
[2022-03-27 06:21] LABS: Calcium 8.4 MG/DL (8.5-10.1); Potassium 3.9 MMOL/L (3.5-5.1)
[2022-03-27 07:23] LABS: Band Neutrophils 2 % (0-10); Eosinophils 5 % (0-10); Lymphocytes 33 % (20-55); Myelocytes 1 %; Total Cells Counted 100
[2022-03-27 07:24] LABS: Anisocytosis 1+
[2022-03-27 07:25] LABS: Hypochromia Slight; Ovalocytes Slight; Platelet Estimate Adequate; Target Cells Slight
[2022-03-27] MEDS: amLODIPine 10 MG TABLET PO SCH (09:40)
[2022-03-27] MEDS: RANOLAZINE 500 MG TABLET PO SCH ×2 (09:40→20:51)
[2022-03-27] MEDS: LOSARTAN 50 MG TABLET PO SCH ×2 (09:40→20:52)
[2022-03-27] MEDS: ATORVASTATIN 80 MG TABLET PO SCH (09:40)
[2022-03-27] MEDS: DOCUSATE SODIUM 100 MG CAPSULE PO SCH ×2 (09:41→20:52)
[2022-03-27] MEDS: carvediloL 25 MG TABLET PO SCH ×2 (09:41→18:00)
[2022-03-27] MEDS: ISOSORBIDE MONONITRATE 30 MG TABLET PO SCH (09:41)
[2022-03-27] MEDS: hydrALAZINE 25 MG TABLET PO SCH ×2 (09:41→20:52)
[2022-03-27] MEDS: CIPROFLOXACIN INJ 400 MG/200 ML PREMIX IV SCH ×2 (09:42→20:52)
[2022-03-27] MEDS: FLUoxetine 10 MG CAPSULE PO SCH (09:44)
[2022-03-27] MEDS: PANTOPRAZOLE 40 MG TABLET PO SCH (09:44)
[2022-03-27] MEDS ORDERED: LACTULOSE 20 GM/30 ML UDCUP PO ONE (10:01)
[2022-03-28] MEDS: metroNIDAZOLE INJ 500 MG/100 ML PREMIX IV SCH ×2 (02:57→11:18)
[2022-03-28] MEDS: RANOLAZINE 500 MG TABLET PO SCH (09:35)
[2022-03-28] MEDS: ISOSORBIDE MONONITRATE 30 MG TABLET PO SCH (09:36)
[2022-03-28] MEDS: PANTOPRAZOLE 40 MG TABLET PO SCH (09:36)
[2022-03-28] MEDS: amLODIPine 10 MG TABLET PO SCH (09:36)
[2022-03-28] MEDS: carvediloL 25 MG TABLET PO SCH (09:36)
[2022-03-28] MEDS: FLUoxetine 10 MG CAPSULE PO SCH (09:36)
[2022-03-28] MEDS: ATORVASTATIN 80 MG TABLET PO SCH (09:36)
[2022-03-28] MEDS: LOSARTAN 50 MG TABLET PO SCH (09:36)
[2022-03-28] MEDS: DOCUSATE SODIUM 100 MG CAPSULE PO SCH (09:36)
[2022-03-28] MEDS: hydrALAZINE 25 MG TABLET PO SCH (09:36)
[2022-03-28] MEDS: CIPROFLOXACIN INJ 400 MG/200 ML PREMIX IV SCH (09:37)
[2022-03-28] MEDS ORDERED: CIPROFLOXACIN 500 MG TABLET PO ONE (15:25)
[2022-03-28] MEDS ORDERED: metroNIDAZOLE 500 MG TABLET PO ONE (15:25)
[2022-03-28 20:19] VITALS: BP 122/56
== END 2022-03-28 15:38 | DRG 392 ==
LOC: N.ED 15:59 → N.EDINP 15:59 → N.TELEN 18:36
PROVIDERS: ADMIT Family Medicine; ATTEND Family Medicine